=== PATIENT | male | born 1955 | race Caucasian/White ===

== ENCOUNTER 2018-04-25 01:40 | Emergency (ER) | payer OTHER ==
[2018-04-25 02:18] LABS: Absolute Lymphocytes (CBC) 1.6 K/uL (0.7-4.9); Absolute Monocytes 0.7 K/uL (0.1-1.3); Absolute Neutrophil 5.7 K/uL (1.8-8.0); Basophils % 1.2 % (0-1.3); Eosinophils % 5.2 % (0-4.4); Hematocrit 44.4 % (39.6-49.0); Lymphocytes % 18.8 % (15.3-44.8); MCH 29.7 pg (27.0-35.0); MCV 86.5 fL (80-100); Monocytes % 8.5 % (3.3-12.3); RBC Red Blood Cell Count 5.14 M/uL (4.33-5.43)
[2018-04-25 02:22] LABS: Protime INR 1.1
[2018-04-25 02:34] LABS: Potassium 4.1 mmol/L (3.5-5.1); Troponin (Emerg Dept Use Only) 0.08 ng/mL (0.0-0.045)
[2018-04-25] MEDS ORDERED: CLOPIDOGREL 75 MG TABLET ONE (02:38)
[2018-04-25] MEDS ORDERED: ASPIRIN EC 325 MG TABLET PO ONE (02:38)
[2018-04-25] MEDS ORDERED: NA CHLORIDE 0.9% 50 ML IV ONE (02:40)
[2018-04-25] MEDS ORDERED: FOLIC ACID 5 MG/ML VIAL ONE (02:40)
--- NOTE | 2018-04-25 02:47 | EDPHYS ---
Physician Documentation [facility] Name: Vin Waller Jr Age: 63 yrs Sex: Male : 1955 Arrival Date: 04/25/2018 Time: 01:40 Bed 3 Private MD: Wally Denton V ED Physician Tolu Fournier HPI: 04/25 01:48 This 63 yrs old Male presents to ER via Unassigned with complaints of S/S of jr8 Possible Stroke. 01:48 The patient's problem is reported as dysphasia, slurred speech, incoherent speech, jr8 weakness, in the left upper extremity, in the left lower extremity. Onset: The symptoms/episode began/occurred acutely, today, at 21:00. Duration: This was a single incident. Context: the episode(s) was witnessed, by family, occurred at home, occurred while the patient was at rest. The symptoms are alleviated by nothing. The symptoms are aggravated by nothing. Associated signs and symptoms: The patient has no apparent associated signs or symptoms. Severity of symptoms: At their worst the symptoms were moderate in the emergency department the symptoms have improved mildly. Patient's baseline: Neuro: alert and fully oriented, Motor: no deficits, Ambulation: walks without assistance, Speech: normal. The patient has not experienced similar symptoms in the past. The patient has not recently seen a physician. Historical: - Allergies: 02:02 Erythromycin; tl2 - Home Meds: 02:02 furosemide 80 mg Oral tab 1 tab once daily [Active]; Klor-Con M20 20 mEq Oral TbTQ 1 tl2 tab once daily [Active]; lisinopril 20 mg Oral tab 1 tab once daily [Active]; allopurinol 100 mg Oral tab 1 tab once daily [Active]; carvedilol oral oral [Active]; - PMHx: 02:02 Gout; Hypertension; CHF; tl2 - Immunization history:: Adult Immunizations up to date. - Social history:: Smoking status: Patient/guardian denies using tobacco. - Ebola Screening: : No symptoms or risks identified at this time. ROS: 01:48 Eyes: Negative for injury, pain, redness, and discharge, ENT: Negative for injury, jr8 pain, and discharge, Neck: Negative for injury, pain, and swelling, Cardiovascular: Negative for chest pain, palpitations, and edema, Respiratory: Negative for shortness of breath, cough, wheezing, and pleuritic chest pain, Abdomen/GI: Negative for abdominal pain, nausea, vomiting, diarrhea, and constipation, Back: Negative for injury and pain, MS/Extremity: Negative for injury and deformity, Skin: Negative for injury, rash, and discoloration. 01:48 Neuro: Positive for speech changes, weakness. Exam: 01:48 Eyes: Pupils equal round and reactive to light, extra-ocular motions intact. Lids and jr8 lashes normal. Conjunctiva and sclera are non-icteric and not injected. Cornea within normal limits. Periorbital areas with no swelling, redness, or edema. ENT: Nares patent. No nasal discharge, no septal abnormalities noted. Tympanic membranes are normal and external auditory canals are clear. Oropharynx with no redness, swelling, or masses, exudates, or evidence of obstruction, uvula midline. Mucous membranes moist. Neck: Trachea midline, no thyromegaly or masses palpated, and no cervical lymphadenopathy. Supple, full range of motion without nuchal rigidity, or vertebral point tenderness. No Meningismus. Cardiovascular: Regular rate and rhythm with a normal S1 and S2. No gallops, murmurs, or rubs. Normal PMI, no JVD. No pulse deficits. Respiratory: Lungs have equal breath sounds bilaterally, clear to auscultation and percussion. No rales, rhonchi or wheezes noted. No increased work of breathing, no retractions or nasal flaring. Abdomen/GI: Soft, non-tender, with normal bowel sounds. No distension or tympany. No guarding or rebound. No evidence of tenderness throughout. Back: No spinal tenderness. No costovertebral tenderness. Full range of motion. Skin: Warm, dry with normal turgor. Normal color with no rashes, no lesions, and no evidence of cellulitis. MS/ Extremity: Pulses equal, no cyanosis. Neurovascular intact. Full, normal range of motion. 01:48 Neuro: Orientation: to person, place, time \T\ situation. Mentation: is normal, Memory: is normal, immediate memory is intact, recent memory is intact, remote memory is intact, Cranial nerves: CN I not tested, CN II- XII are normal as tested, visual campbell are intact. extraocular movements are intact, Facial palsy and sensory deficits are absent. Nystagmus is absent. Speech is clear and appropriate. Tongue strength is normal, Cerebellar function: dysmetria is noted on the left, the patient is unable to track left heel to right callahan, Motor: moves all fours, Sensation: no obvious gross deficits, seizure activity, is not displayed by the patient, Abnormal movements: there are no abnormal movements. 02:18 Radiologist reports: Negative for acute finding on CT head jr8 Vital Signs: 02:02 BP 167 / 116; Pulse 80; Resp 20; Pulse Ox 94% on R/A; Weight 113.4 kg; Height 5 ft. 10 tl2 in. (177.80 cm); Pain 0/10; 02:05 Temp 98.7(O); cc3 03:00 BP 150 / 92; Pulse 75; Resp 18; Pulse Ox 94% on R/A; tl2 03:23 BP 161 / 93; Pulse 68; Resp 24; Pulse Ox 94% on R/A; tl2 05:31 Pulse 64; Resp 18; Temp 98.4; Pulse Ox 94% on R/A; tl2 02:02 Body Mass Index 35.87 (113.40 kg, 177.80 cm) tl2 NIH Stroke Scale Scores: 01:48 NIHSS Score: 3 jr8 02:09 NIHSS Score: 3 tl2 MDM: 01:46 Patient medically screened. jr8 02:14 ED course: Patient is not a candidate for TPA as symptoms started at 21:00 hours and jr8 did not arrive to ED until 01:44 which is almost 5 hours after symptom onset. . 02:26 Data reviewed: vital signs, nurses notes, lab test result(s), EKG, radiologic studies, jr8 CT scan, plain films. Data interpreted: Pulse oximetry: on room air is 94 %. Interpretation: acceptable. Counseling: I had a detailed discussion with the patient and/or guardian regarding: the historical points, exam findings, and any diagnostic results supporting the discharge/admit diagnosis, lab results, radiology results, the need to transfer to another facility, for higher level of care, [facility] does not immediately have the required specialist. 02:44 ED course: Dr. Martínez contacted at [facility] who has accepted patient for neuro jr8 tele . 04/25 01:46 Order name: Troponin (emerg Dept Use Only) 04/25 01:46 Order name: Basic Metabolic Panel 04/25 01:46 Order name: CBC with Diff 04/25 01:46 Order name: Protime (+inr); Complete Time: 02:26 04/25 01:46 Order name: Ptt, Activated; Complete Time: 02:26 04/25 01:47 Order name: Troponin (Emerg Dept Use Only); Complete Time: 02:42 EDMS 04/25 01:46 Order name: CT Stroke Brain w/o Contrast 04/25 01:46 Order name: Stroke CXR 1 View 04/25 01:46 Order name: EKG; Complete Time: 01:47 04/25 01:47 Order name: Basic Metabolic Panel; Complete Time: 02:42 EDMS 04/25 01:47 Order name: CBC with Automated Diff; Complete Time: 02:20 EDMS 04/25 01:46 Order name: Accucheck; Complete Time: 02:08 04/25 01:46 Order name: Cardiac monitoring; Complete Time: 02:19 04/25 01:46 Order name: EKG - Nurse/Tech; Complete Time: 02:05 04/25 01:46 Order name: IV Saline Lock; Complete Time: 02:04/25 01:46 Order name: Labs collected and sent; Complete Time: 02:04/25 01:46 Order name: NPO; Complete Time: 02:04/25 01:46 Order name: O2 Per Protocol; Complete Time: 02:04/25 01:46 Order name: O2 Sat Monitoring; Complete Time: 02:04/25 01:46 Order name: Stroke Swallow Screen; Complete Time: 02: Administered Medications: 02:35 Drug: PlaVIX 75 mg Route: PO; cc3 03:00 Follow up: Response: No adverse reaction cc3 02:35 Drug: Aspirin 325 mg Route: PO; cc3 03:00 Follow up: Response: No adverse reaction cc3 02:35 Drug: foLIC Acid 1 mg Route: IVPB; Site: left antecubital; cc3 03:00 Follow up: Response: No adverse reaction; IV Status: Completed infusion cc3 Point of Care Testing: Blood Glucose: 02:02 Blood Glucose: 241 mg/dL; tl2 Ranges: Critical Glucose Levels:Adult <50 mg/dl or >400 mg/dl <40 mg/dl or >180 mg/dl Disposition: 06:47 Co-signature as Attending Physician, Tolu Fournier MD I agree with the assessment and milagros plan of care. Disposition: 04/25/18 02:46 Transfer ordered to [facility]. Diagnosis is Cerebral infarction. - Reason for transfer: Higher level of care. - Accepting physician is Dr. Martínez . - Condition is Stable. - Problem is new. - Symptoms have improved. NIH Stroke Scale - NIH Stroke Score Date: 04/25/2018 Time: 01:48 Total Score = 3 1a. Level of Consciousness (LOC) - 0(Alert) 1b. Level of Consciousness (LOC) (Year \T\ Age) - 0(Both) 1c. LOC Commands (Open \T\ Closes Eyes/Foam Rubber Mixer) - 0(Both) 2. Best Gaze (Lateral Gaze Paresis) - 0(Normal) 3. Visual Field Loss - 0(No visual loss) 4. Facial Palsy - 0(Normal) 5a. Left Arm: Motor (10-second hold) - 1(Drift) 5b. Right Arm: Motor (10-second hold) - 0(No drift) 6a. Left Leg: Motor (5-second hold - always test supine) - 1(Drift) 6b. Right Leg: Motor (5-second hold - always test supine) - 0(No drift) 7. Limb Ataxia (finger/nose \T\ heel/callahan - test with eyes open) - 1(Present in one limb) 8. Sensory Loss (pinprick arms/legs/face) - 0(Normal) 9. Best Language: Aphasia (description/naming/reading) - 0(No aphasia) 10. Dysarthria (speech clarity - read or repeat words) - 0(Normal) 11. Extinction and Inattention (visual/tactile/auditory/spatial/personal) - 0(No abnormality) Initials: jr8 NIH Stroke Scale - NIH Stroke Score Date: 04/25/2018 Time: 02:09 Total Score = 3 1a. Level of Consciousness (LOC) - 0(Alert) 1b. Level of Consciousness (LOC) (Year \T\ Age) - 0(Both) 1c. LOC Commands (Open \T\ Closes Eyes/Foam Rubber Mixer) - 0(Both) 2. Best Gaze (Lateral Gaze Paresis) - 0(Normal) 3. Visual Field Loss - 0(No visual loss) 4. Facial Palsy - 0(Normal) 5a. Left Arm: Motor (10-second hold) - 1(Drift) 5b. Right Arm: Motor (10-second hold) - 0(No drift) 6a. Left Leg: Motor (5-second hold - always test supine) - 1(Drift) 6b. Right Leg: Motor (5-second hold - always test supine) - 0(No drift) 7. Limb Ataxia (finger/nose \T\ heel/callahan - test with eyes open) - 1(Present in one limb) 8. Sensory Loss (pinprick arms/legs/face) - 0(Normal) 9. Best Language: Aphasia (description/naming/reading) - 0(No aphasia) 10. Dysarthria (speech clarity - read or repeat words) - 0(Normal) 11. Extinction and Inattention (visual/tactile/auditory/spatial/personal) - 0(No abnormality) Initials: tl2 Signatures: Dispatcher [employer] EDHI Tolu Fournier MD MD cha Roszak, Josh, PA PA jr8 Anne Bueno RN RN tl2 Shira Hastings cc3 Corrections: (The following items were deleted from the chart) 02:28 01:48 NIHSS Score: 4 jr8 jr8 02:28 02:12 NIHSS Score: 3 jr8 jr8 05:33 02:46 04/25/2018 02:46 Transfer ordered to [facility]. tl2 Diagnosis is Cerebral infarction. Reason for transfer: Higher level of care. Accepting physician is Dr. Martínez . Condition is Stable. Problem is new. Symptoms have improved. jr8
--- NOTE | 2018-04-25 02:47 | ER ---
Nurse's Notes [facility] Name: Vin Waller Jr Age: 63 yrs Sex: Male : 1955 Arrival Date: 04/25/2018 Time: 01:40 Bed 3 Private MD: Wally Denton V Diagnosis: Cerebral infarction Presentation: 04/25 01:50 Pre-hospital glucose is not applicable to this patient. tl2 02:02 Presenting complaint: Patient states: Reports weakness in left side and slurring of tl2 speech started around 8:00 or 9:00 last night. Speech has resolved but pt still reports slight weakness in left side. Pt AOx4 and ambulatory. Denies pain. Transition of care: patient was not received from another setting of care. An acute neurological deficit is present. The charge nurse has been notified. The patient has been moved to a treatment area. Onset of symptoms was April 24, 2018 at 21:00. Risk Assessment: Do you want to hurt yourself or someone else? Patient reports no desire to harm self or others. Initial Sepsis Screen: Does the patient meet any 2 criteria? No. Patient's initial sepsis screen is negative. Does the patient have a suspected source of infection? No. Patient's initial sepsis screen is negative. Care prior to arrival: None. 02:02 Method Of Arrival: Wheelchair tl2 02:02 Acuity: DORY 2 tl2 Triage Assessment: 02:02 The onset of the patients symptoms was April 24, 2018 at 21:00. General: Appears in tl2 no apparent distress. comfortable, Behavior is calm, cooperative, appropriate for age. Pain: Denies pain. Neuro: Level of Consciousness is awake, alert, obeys commands, Oriented to person, place, time, situation, Moves all extremities. Gait is unsteady, Speech is normal, Facial symmetry appears normal, Reports weakness in left hand, left side. Cardiovascular: Denies chest pain. Respiratory: Airway is patent Respiratory effort is even, unlabored, Respiratory pattern is regular, symmetrical. GI: No signs and/or symptoms were reported involving the gastrointestinal system. Derm: Skin is pale. Stroke Activation: Physician: Stroke Attending; Name: Shantanu; Notified At: 01:43; Arrived At: 01:43 Physician: Chief Stroke Resident; Name: ; Notified At: 01:43; Arrived At: Physician: Stroke Resident; Name: ; Notified At: 01:43; Arrived At: Physician: ED Attending; Name: Shantanu; Notified At: 01:43; Arrived At: Physician: ED Resident; Name: ; Notified At: 01:43; Arrived At: Historical: - Allergies: 02:02 Erythromycin; tl2 - Home Meds: 02:02 furosemide 80 mg Oral tab 1 tab once daily [Active]; Klor-Con M20 20 mEq Oral TbTQ 1 tl2 tab once daily [Active]; lisinopril 20 mg Oral tab 1 tab once daily [Active]; allopurinol 100 mg Oral tab 1 tab once daily [Active]; carvedilol oral oral [Active]; - PMHx: 02:02 Gout; Hypertension; CHF; tl2 - Immunization history:: Adult Immunizations up to date. - Social history:: Smoking status: Patient/guardian denies using tobacco. - Ebola Screening: : No symptoms or risks identified at this time. Screenin:52 The patient has not been NPO before screening. The patient is alert, able to follow bb commands. The patient does not exhibit slurred or garbled speech The patient is not exhibiting difficulty speaking. The patient does not exhibit difficulty understanding words. The patient is able to swallow own secretions with no drooling or need for suction. Patient tolerated one teaspoon of water. No drooling, immediate coughing, gurgling, or clearing of the throat was noted. The patient tolerated 90mL of water. No drooling, immediate coughing, gurgling, or clearing of the throat was noted. The patient passed the bedside swallow screening. Oral medications may be given as ordered. Contact Physician for further diet orders. 02:09 Abuse screen: Denies threats or abuse. Nutritional screening: No deficits noted. tl2 Tuberculosis screening: No symptoms or risk factors identified. Fall Risk IV access (20 points). Gait- Weak (10 pts.). Assessment: 01:50 The patient has not been NPO before screening. The patient is alert, and able to follow tl2 commands. The patient does not exhibit slurred or garbled speech. The patient is not exhibiting difficulty speaking. The patient does not exhibit difficulty understanding words. The patient is able to swallow own secretions with no drooling or need for suction. Patient tolerated one teaspoon of water. No drooling, immediate coughing, gurgling, or clearing of the throat was noted. The patient tolerated 90mL of water. No drooling, immediate coughing, gurgling, or clearing of the throat was noted. The patient passed the bedside swallow screening. Oral medications may be given as ordered. Contact Physician for further diet orders. Provider notified of bedside swallow screening results: Froilan GARCIA. 02:00 T-PA (Activase) Screening: Indications: Treatment will start within 4.5 hours onset of tl2 symptoms: No. 02:09 General: see triage assessment. tl2 03:15 Reassessment: Patient appears in no apparent distress at this time. Patient and/or cc3 family updated on plan of care and expected duration. Pain level reassessed. Patient is alert, oriented x 3, equal unlabored respirations, skin warm/dry/pink. 04:30 Reassessment: Patient appears in no apparent distress at this time. Patient and/or tl2 family updated on plan of care and expected duration. Pain level reassessed. Patient is alert, oriented x 3, equal unlabored respirations, skin warm/dry/pink. 05:31 Reassessment: Patient appears in no apparent distress at this time. Patient and/or tl2 family updated on plan of care and expected duration. Pain level reassessed. Patient is alert, oriented x 3, equal unlabored respirations, skin warm/dry/pink. Pt stable and ready for transport, EMS at bedside. Vital Signs: 02:02 BP 167 / 116; Pulse 80; Resp 20; Pulse Ox 94% on R/A; Weight 113.4 kg; Height 5 ft. 10 tl2 in. (177.80 cm); Pain 0/10; 02:05 Temp 98.7(O); cc3 03:00 BP 150 / 92; Pulse 75; Resp 18; Pulse Ox 94% on R/A; tl2 03:23 BP 161 / 93; Pulse 68; Resp 24; Pulse Ox 94% on R/A; tl2 05:31 Pulse 64; Resp 18; Temp 98.4; Pulse Ox 94% on R/A; tl2 02:02 Body Mass Index 35.87 (113.40 kg, 177.80 cm) tl2 NIH Stroke Scale Scores: 01:48 NIHSS Score: 3 jr8 02:09 NIHSS Score: 3 tl2 ED Course: 01:40 Patient arrived in ED. am2 01:41 Wally Denton MD is Private Physician. am2 01:46 Froilan Dougherty PA is PHCP. jr8 01:46 Tolu Fournier MD is Attending Physician. jr8 02:00 Inserted saline lock: 20 gauge in left antecubital area, using aseptic technique. oe 02:02 Arm band placed on right wrist. tl2 02:06 Triage completed. tl2 02:06 CT completed. Patient tolerated procedure well. Patient moved to CT via stretcher. mw3 Patient moved back from CT. 02:08 X-ray completed. Portable x-ray completed in exam room. Patient tolerated procedure kw well. 02:08 CT Stroke Brain w/o Contrast In Process Unspecified. EDMS 02:09 Stroke CXR 1 View In Process Unspecified. EDMS 02:09 Patient has correct armband on for positive identification. Placed in gown. Bed in low tl2 position. Call light in reach. Side rails up X2. Adult w/ patient. 03:23 Anne Bueno, MANAN is Primary Nurse. tl2 05:31 No provider procedures requiring assistance completed. Patient admitted, IV remains in tl2 place. Administered Medications: 02:35 Drug: PlaVIX 75 mg Route: PO; cc3 03:00 Follow up: Response: No adverse reaction cc3 02:35 Drug: Aspirin 325 mg Route: PO; cc3 03:00 Follow up: Response: No adverse reaction cc3 02:35 Drug: foLIC Acid 1 mg Route: IVPB; Site: left antecubital; cc3 03:00 Follow up: Response: No adverse reaction; IV Status: Completed infusion cc3 Point of Care Testing: Blood Glucose: 02:02 Blood Glucose: 241 mg/dL; tl2 Ranges: Outcome: 02:46 ER care complete, transfer ordered by . jr8 05:31 Transferred by ground EMS to [facility], Transfer form completed. tl2 05:31 Condition: stable 05:31 Discharge instructions given to patient, family, Instructed on the need for transfer. 05:33 Patient left the ED. tl2 NIH Stroke Scale - NIH Stroke Score Date: 04/25/2018 Time: 01:48 Total Score = 3 1a. Level of Consciousness (LOC) - 0(Alert) 1b. Level of Consciousness (LOC) (Year \T\ Age) - 0(Both) 1c. LOC Commands (Open \T\ Closes Eyes/Registered Nursing Professor) - 0(Both) 2. Best Gaze (Lateral Gaze Paresis) - 0(Normal) 3. Visual Field Loss - 0(No visual loss) 4. Facial Palsy - 0(Normal) 5a. Left Arm: Motor (10-second hold) - 1(Drift) 5b. Right Arm: Motor (10-second hold) - 0(No drift) 6a. Left Leg: Motor (5-second hold - always test supine) - 1(Drift) 6b. Right Leg: Motor (5-second hold - always test supine) - 0(No drift) 7. Limb Ataxia (finger/nose \T\ heel/callahan - test with eyes open) - 1(Present in one limb) 8. Sensory Loss (pinprick arms/legs/face) - 0(Normal) 9. Best Language: Aphasia (description/naming/reading) - 0(No aphasia) 10. Dysarthria (speech clarity - read or repeat words) - 0(Normal) 11. Extinction and Inattention (visual/tactile/auditory/spatial/personal) - 0(No abnormality) Initials: jr8 NIH Stroke Scale - NIH Stroke Score Date: 04/25/2018 Time: 02:09 Total Score = 3 1a. Level of Consciousness (LOC) - 0(Alert) 1b. Level of Consciousness (LOC) (Year \T\ Age) - 0(Both) 1c. LOC Commands (Open \T\ Closes Eyes/Registered Nursing Professor) - 0(Both) 2. Best Gaze (Lateral Gaze Paresis) - 0(Normal) 3. Visual Field Loss - 0(No visual loss) 4. Facial Palsy - 0(Normal) 5a. Left Arm: Motor (10-second hold) - 1(Drift) 5b. Right Arm: Motor (10-second hold) - 0(No drift) 6a. Left Leg: Motor (5-second hold - always test supine) - 1(Drift) 6b. Right Leg: Motor (5-second hold - always test supine) - 0(No drift) 7. Limb Ataxia (finger/nose \T\ heel/callahan - test with eyes open) - 1(Present in one limb) 8. Sensory Loss (pinprick arms/legs/face) - 0(Normal) 9. Best Language: Aphasia (description/naming/reading) - 0(No aphasia) 10. Dysarthria (speech clarity - read or repeat words) - 0(Normal) 11. Extinction and Inattention (visual/tactile/auditory/spatial/personal) - 0(No abnormality) Initials: tl2 Signatures: Dispatcher [employer] Veena Aldrich, RN RN bb Matilde Washington Josh, PA PA jr8 Anne Bueno RN RN tl2 Gino Caballero Amanda am2 Geetha Garay mw3 Shira Hastings cc3
--- NOTE | 2018-04-25 07:12 | RAD REPORT ---
EXAM DESCRIPTION: CT - Ct Stroke Brain Wo Cont - 04/25/2018 2:08 am CLINICAL HISTORY: Slurred speech, left-sided weakness and numbness A preliminary report was provided at the time of the study and reviewed prior to final report. CLINICAL HISTORY: None. TECHNIQUE: Axial 5 millimeter thick images of the head were obtained without IV contrast. All CT scans are performed using dose optimization technique as appropriate and may include automated exposure control or mA/KV adjustment according to patient size. FINDINGS: No intracranial hemorrhage, mass, or cerebral edema. No acute infarction identifiable. Atr ophy and chronic ischemic changes are present relatively mild. Gomez matter-white matter differentiati on is preserved. Ventricles are in proportion to volume loss. Arterial and physiologic calcifications are present. Visualized portions of the mastoid air cells, paranasal sinuses, and orbits are without acute finding . IMPRESSION: No CT evidence of acute intracranial process. Patient has mild underlying atrophy and ch ronic ischemic change. Chronic ischemic changes can mask nonhemorrhagic acute infarction. MR brain followup can be obtained if there is ongoing concern for acute ischemia.
--- NOTE | 2018-04-25 08:28 | RAD REPORT ---
EXAM DESCRIPTION: RAD - Chest Single View - 04/25/2018 2:09 am CLINICAL HISTORY: Stroke protocol chest film COMPARISON: None. TECHNIQUE: AP portable chest image was obtained 0204 hours . FINDINGS: Exam is degraded by motion. Portable technique, large body habitus and cardiomegaly limit left base assessment. Peripheral mass or consolidation is not suspected. Significant failure or volum e overload are not suspected. Heart and vasculature are normal. No measurable pleural effusion and no pneumothorax. No acute bony abnormality seen. No acute aortic findings suspected. IMPRESSION: Motion degraded portable study showing no acute lung parenchymal finding. Mild cardiomegaly accentuated by exam limitations. No vascular engorgement or other findings of signi ficant failure/ volume overload.
--- NOTE | 2018-04-26 06:54 | EKG ---
Test Date: 2018-04-25 Test Time: 01:52:19 Biological Plant Operator: BHASKAR MEASUREMENT RESULTS: Intervals: Rate: 83 UT: 200 QRSD: 110 QT: 396 QTc: 465 [place]: P: 59 UT: 200 QRS: -38 T: 73 INTERPRETIVE STATEMENTS: Sinus rhythm with occasional premature ventricular complexes Left axis deviation Nonspecific ST abnormality Abnormal ECG Compared to ECG 06/29/2005 05:43:00 Ventricular premature complex(es) now present Left-axis deviation now present ST (T wave) deviation now present Incomplete right bundle-branch block no longer present T-wave abnormality no longer present Electronically Signed On 04-26-18 06:49:33 CDT by Geoff Roman
== END 2018-04-25 05:33 | disposition short-term general hospital (02) ==
LOC: ER 01:40
DX: I63.9 Cerebral infarction, unspecified (principal); I10 Essential (primary) hypertension; R29.703 NIHSS score 3; I50.9 Heart failure, unspecified; Z88.3 Allergy status to other anti-infective agents
CPT/HCPCS: 36415; 70450; 71045; 80048; 82962; 84484; 85025; 85610; 85730; 93005; 96365; 99285

== ENCOUNTER 2019-05-19 18:21 | Observation (INO) | payer OTHER ==
--- OUTSIDE RECORDS SUMMARY | 2019-05-19 18:24 | XMS REPORT ---
:1955 [facility] [address] [place] [address] Care Team Providers Name Role Phone GENO BAILEY Unavailable Unavailable Problems This patient has no known problems. Allergies, Adverse Reactions, Alerts This patient has no known allergies or adverse reactions. Medications This patient has no known medications. Results Test Description Test Time Test Comments Text Results Atomic Results Result Comments PHOSPHORUS 2018-04-27 05:49:00 Test Item Value Reference Range Comments PHOSPHORUS (BEAKER) (test drjw=612) 3.2 mg/dL 2.3-4.7 [id number] 05:49:00 Test Item Value Reference Range Comments MAGNESIUM (BEAKER) (test cxyj=106) 1.9 mg/dL 1.6-2.6 BASIC METABOLIC [id number] 05:25:00 Test Item Value Reference Range Comments SODIUM (BEAKER) (test 140 meq/L 136-145 wrxr=745) POTASSIUM (BEAKER) (test 3.5 meq/L 3.5-5.1 ybic=279) CHLORIDE (BEAKER) (test 105 meq/L 98-107 nwvu=789) CO2 (BEAKER) (test 26 meq/L 22-29 wxik=313) BLOOD UREA NITROGEN 14 mg/dL 7-21 (BEAKER) (test lpxk=478) CREATININE (BEAKER) (test 0.83 mg/dL 0.57-1.25 ugei=103) GLUCOSE RANDOM (BEAKER) 237 mg/dL 70-105 (test cnbd=594) CALCIUM (BEAKER) (test 9.1 mg/dL 8.4-10.2 asbe=722) EGFR (BEAKER) (test 94 mL/min/1.73 sq m ESTIMATED GFR IS NOT lmrn=4276) ACCURATE CREATININE CLEARANCE IN PREDICTING GLOMERULAR FILTRATION RATE. ESTIMATED GFR IS NOT APPLICABLE FOR DIALYSIS PATIENTS. MR, MRA, BRAIN, WITHOUT [id number] 19:36:00Reason for exam:-> Ischemic Stroke EvaluationFINAL REPORT MRA brain and neck without contrast 04/26/2018 7:35 PM CLINICAL HISTORY: StrokeIschemic Stroke Evaluationconcern for stroke COMPARISON: None available TECHNIQUE: Two- and three-dimensional ylgf-fn-fmmikh MRA images of the intra- and extracranial arterial vasculaturewas performed, from which maximal intensity projection 3-D reconstructions were created. FINDINGS: MRA neck: There is no vessel occlusion or flow-limiting stenosis. There is no NASCET-quantifiable cervical internal carotid artery stenosis. Flow is antegrade in both vertebral arteries. MRA [place]: There is no vessel occlusion, flow-limiting stenosis, or aneurysm. IMPRESSION: Negative intra-and extracranial MRAs. Signed: Kristian Hurtado Verified Date/Time: 04/26/2018 19:36:42 Reading Location: [facility] Radiology Reading Room MR, MRA, NECK, WITHOUT IV [id number] 19:36: 00Reason for exam:->Ischemic Stroke EvaluationFINAL REPORT MRA brain and neck without contrast 04/26/2018 7:35 PM CLINICAL HISTORY : StrokeIschemic Stroke Evaluationconcern for stroke COMPARISON: None available TECHNIQUE: Two- and three-dimensional ncbc-at-xkkapr MRA images of the intra- and extracranial arterial vasculaturewas performed, from which maximal intensity projection 3-D reconstructions were created. FINDINGS: MRA neck: There is no vessel occlusion or flow-limiting stenosis. There is no NASCET- quantifiable cervical internal carotid artery stenosis. Flow is antegrade in both vertebral arteries. MRA [place]: There is no vessel occlusion, flow-limiting stenosis, or aneurysm. IMPRESSION: Negative intra-and extracranial MRAs. Signed: Kristian Hurtado Verified Date/Time: 2017 19:36:42 Reading Location: [facility] Radiology Reading Room MR, BRAIN , WITHOUT [id number] 19:35:00Reason for exam:->Ischemic Stroke EvaluationFINAL REPORT MRI brain without contrast 2017 7:33 PM CLINICAL INDICATION: Ischemic Stroke Evaluationsuspected stroke TECHNIQUE: Multiplanar, multisequence MR imaging of thebrain was performed utilizing the following imaging sequences: Axial T1, T2, FLAIR, GRE, and DWI; sagittal and coronal T1-weighted images. COMPARISON: None available FINDINGS: There is a small acute nonhemorrhagic infarct involving the posterior right romo radiata and insular cortex. There is no hematoma, mass, hydrocephalus, or extra-axial collection. There is generalized parenchymal volume loss. Normal appearing flow-voids are present in the major intracranial vascular structures. The sellar and pineal regions are normal. The craniovertebral junction is intact. There is left sphenoid sinusitis. The orbits and skull base are unremarkable. IMPRESSION: 1. Acute nonhemorrhagic posterior right romo radiata /insular infarct. 2. Left sphenoid sinusitis. Signed: Kristian Hurtado Verified Date/Time: 04/26/2018 19:35:05 Reading Location: [facility] Radiology Reading Room Electronically signed by: KRISTIAN HURTADO M.D. on 07:35 PMHEMOGLOBIN [id number] 13:31:00 Test Item Value Reference Range Comments HEMOGLOBIN A1C (BEAKER) (test taee=020) 10.4 % 4.3-6.1 CREATINE KINASE (CK), TOTAL AND [id number] 08:03:00 Test Item Value Reference Range Comments CREATINE KINASE TOTAL (BEAKER) (test gktz=095) 78 U/L 29-200 CREATINE KINASE-MB (BEAKER) (test cext=919) 4.0 ng/mL 0.0-6.6 CREATINE KINASE-MB INDEX (BEAKER) (test hkqu=180) 5.1 % CK-MB Reference Range:<6.7 Normal6.7-10.0 Borderline>10.0 AbnormalTROPONIN [id number] 07:34:00 Test Item Value Reference Range Comments TROPONIN I (BEAKER) (test tkvq=147) 0.07 ng/mL 0.00-0.03 Troponin I (TnI) levels must be interpreted in the context of the presenting symptoms and the clinical findings. Elevated TnI levels indicate myocardial damage, but are not specific for ischemic heart disease. Elevated TnI levels are seen in patients with other cardiac conditions (including myocarditis and congestive heart failure), and slight TnI elevations occur in patients with other conditions, including sepsis, renal failure, acidosis, acute neurological disease, and persistent tachyarrhythmia.BASIC METABOLIC [id number] 07:20:00 Test Item Value Reference Range Comments SODIUM (BEAKER) (test 137 meq/L 136-145 zufb=455) POTASSIUM (BEAKER) (test 3.7 meq/L 3.5-5.1 jbjn=129) CHLORIDE (BEAKER) (test 103 meq/L 98-107 ndgl=696) CO2 (BEAKER) (test 24 meq/L 22-29 aoyo=458) BLOOD UREA NITROGEN 17 mg/dL 7-21 (BEAKER) (test bgcg=273) CREATININE (BEAKER) (test 0.84 mg/dL 0.57-1.25 ixsi=695) GLUCOSE RANDOM (BEAKER) 218 mg/dL 70-105 (test sipl=359) CALCIUM (BEAKER) (test 9.2 mg/dL 8.4-10.2 rsls=167) EGFR (BEAKER) (test 93 mL/min/1.73 sq m ESTIMATED GFR IS NOT byky=4080) ACCURATE CREATININE CLEARANCE IN PREDICTING GLOMERULAR FILTRATION RATE. ESTIMATED GFR IS NOT APPLICABLE FOR DIALYSIS PATIENTS. CBC W/PLT COUNT & AUTO [id number] 06:38:00 Test Item Value Reference Range Comments WHITE BLOOD CELL COUNT (BEAKER) (test jgrv=019) 9.3 K/ L 3.5-10.5 RED BLOOD CELL COUNT (BEAKER) (test ljmv=265) 5.12 M/ L 4.63-6.08 HEMOGLOBIN (BEAKER) (test fnjg=414) 14.6 GM/DL 13.7-17.5 HEMATOCRIT (BEAKER) (test vgzn=111) 45.6 % 40.1-51.0 MEAN CORPUSCULAR VOLUME (BEAKER) (test bule=172) 89.1 fL 79.0-92.2 MEAN CORPUSCULAR HEMOGLOBIN (BEAKER) (test 28.5 pg 25.7-32.2 whtk=558) MEAN CORPUSCULAR HEMOGLOBIN CONC (BEAKER) (test 32.0 GM/DL 32.3-36.5 eknk=386) RED CELL DISTRIBUTION WIDTH (BEAKER) (test 14.1 % 11.6-14.4 jzsr=870) PLATELET COUNT (BEAKER) (test kmsi=439) 217 K/CU MM 150-450 MEAN PLATELET VOLUME (BEAKER) (test fcnb=774) 11.0 fL 9.4-12.4 NUCLEATED RED BLOOD CELLS (BEAKER) (test 0 /100 WBC 0-0 fbkx=807) NEUTROPHILS RELATIVE PERCENT (BEAKER) (test 74 % zfux=269) LYMPHOCYTES RELATIVE PERCENT (BEAKER) (test 13 % sxit=746) MONOCYTES RELATIVE PERCENT (BEAKER) (test 9 % kgru=954) EOSINOPHILS RELATIVE PERCENT (BEAKER) (test 3 % kbnb=523) BASOPHILS RELATIVE PERCENT (BEAKER) (test 1 % jwds=533) NEUTROPHILS ABSOLUTE COUNT (BEAKER) (test 6.81 K/ L 1.78-5.38 ytpn=519) LYMPHOCYTES ABSOLUTE COUNT (BEAKER) (test 1.21 K/ L 1.32-3.57 szsf=299) MONOCYTES ABSOLUTE COUNT (BEAKER) (test 0.80 K/ L 0.30-0.82 zqak=272) EOSINOPHILS ABSOLUTE COUNT (BEAKER) (test 0.31 K/ L 0.04-0.54 itzw=031) BASOPHILS ABSOLUTE COUNT (BEAKER) (test 0.08 K/ L 0.01-0.08 gojm=493) IMMATURE GRANULOCYTES-RELATIVE PERCENT (BEAKER) 1 % 0-1 (test mysp=6813) [id number] 04:38:00 Test Item Value Reference Range Comments RPR SCREEN (BEAKER) (test whlp=699) Nonreactive Nonreactive TSH/FREE T4 IF [id number] 19:33:00 Test Item Value Reference Range Comments THYROID STIMULATING HORMONE (BEAKER) (test 0.98 uIU/mL 0.35-4.94 trju=375) CREATINE KINASE (CK), TOTAL AND [id number] 18:51:00 Test Item Value Reference Range Comments CREATINE KINASE TOTAL (BEAKER) (test uwam=161) 86 U/L 29-200 CREATINE KINASE-MB (BEAKER) (test qagt=144) 4.7 ng/mL 0.0-6.6 CREATINE KINASE-MB INDEX (BEAKER) (test emdh=130) 5.5 % CK-MB Reference Range:<6.7 Normal6.7-10.0 Borderline>10.0 AbnormalTROPONIN [id number] 18:51:00 Test Item Value Reference Range Comments TROPONIN I (BEAKER) (test ppek=221) 0.06 ng/mL 0.00-0.03 Troponin I (TnI) levels must be interpreted in the context of the presenting symptoms and the clinical findings. Elevated TnI levels indicate myocardial damage, but are not specific for ischemic heart disease. Elevated TnI levels are seen in patients with other cardiac conditions (including myocarditis and congestive heart failure), and slight TnI elevations occur in patients with other conditions, including sepsis, renal failure, acidosis, acute neurological disease, and persistent tachyarrhythmia.POCT-GLUCOSE [id number] 16:46:00 Test Item Value Reference Range Comments POC-GLUCOSE METER (BEAKER) 205 mg/dL 70-110 TESTED AT [facility] [address] [facility] (test glyx=2220) [facility] [address] VITAMIN [id number] 15:26:00 Test Item Value Reference Range Comments VITAMIN B12 (BEAKER) (test uvfy=071) 520 pg/mL 213-816 BASIC METABOLIC [id number] 14:57:00 Test Item Value Reference Range Comments SODIUM (BEAKER) (test 139 meq/L 136-145 ouma=934) POTASSIUM (BEAKER) (test 3.8 meq/L 3.5-5.1 bgbo=948) CHLORIDE (BEAKER) (test 106 meq/L 98-107 zetc=119) CO2 (BEAKER) (test 23 meq/L 22-29 hgos=891) BLOOD UREA NITROGEN 21 mg/dL 7-21 (BEAKER) (test aidf=613) CREATININE (BEAKER) (test 1.02 mg/dL 0.57-1.25 iusd=507) GLUCOSE RANDOM (BEAKER) 218 mg/dL 70-105 (test zciu=565) CALCIUM (BEAKER) (test 9.7 mg/dL 8.4-10.2 mmsf=306) EGFR (BEAKER) (test 74 mL/min/1.73 sq m ESTIMATED GFR IS NOT pigv=6042) ACCURATE CREATININE CLEARANCE IN PREDICTING GLOMERULAR FILTRATION RATE. ESTIMATED GFR IS NOT APPLICABLE FOR DIALYSIS PATIENTS. TROPONIN [id number] 11:41:00 Test Item Value Reference Range Comments TROPONIN I (BEAKER) (test wyke=834) 0.07 ng/mL 0.00-0.03 Troponin I (TnI) levels must be interpreted in the context of the presenting symptoms and the clinical findings. Elevated TnI levels indicate myocardial damage, but are not specific for ischemic heart disease. Elevated TnI levels are seen in patients with other cardiac conditions (including myocarditis and congestive heart failure), and slight TnI elevations occur in patients with other conditions, including sepsis, renal failure, acidosis, acute neurological disease, and persistent tachyarrhythmia.CREATINE KINASE (CK), TOTAL AND [id number] 11:41:00 Test Item Value Reference Range Comments CREATINE KINASE TOTAL (BEAKER) (test hwjm=328) 86 U/L 29-200 CREATINE KINASE-MB (BEAKER) (test yodq=233) 4.9 ng/mL 0.0-6.6 CREATINE KINASE-MB INDEX (BEAKER) (test yiqx=337) 5.7 % CK-MB Reference Range:<6.7 Normal6.7-10.0 Borderline>10.0 AbnormalLIPID [id number] 11:34:00 Test Item Value Reference Range Comments TRIGLYCERIDES (BEAKER) (test znsq=798) 127 mg/dL CHOLESTEROL (BEAKER) (test uuvq=308) 131 mg/dL HDL CHOLESTEROL (BEAKER) (test kara=682) 32 mg/dL LDL CHOLESTEROL CALCULATED (BEAKER) (test 74 mg/dL rqwv=508) Triglyceride Reference Range: Low Risk <150 Borderline 150- 199 High Risk 200-499 Very High Risk >=500Cholesterol Reference Range: Low Risk <200 Borderline 200-239 High Risk > 240HDL Cholesterol Reference Range: Low Risk >=60 High Risk <40LDL Cholesterol Reference Range: Optimal <100 Near Optimal 100-129 Borderline 130-159 High 160-189 Very High >=190PROTHROMBIN TIME/[id number] 11:28:00 Test Item Value Reference Range Comments PROTIME (BEAKER) (test jgdd=624) 14.2 seconds 11.7-14.7 INR (BEAKER) (test pmjo=729) 1.1 <=5.9 RECOMMENDED COUMADIN/WARFARIN INR THERAPY RANGESSTANDARD DOSE: 2.0 - 3.0 Includes: PROPHYLAXIS forvenous thrombosis, systemic embolization; TREATMENT for venous thrombosis and/or pulmonary embolus.HIGH RISK: Target INR is 2.5-3.5 for patients with mechanical heart valves.[id number] 11:28:00 Test Item Value Reference Range Comments PARTIAL THROMBOPLASTIN TIME (BEAKER) (test 30.1 seconds 22.5-36.0 mntk=253) CBC (HEMOGRAM ONLY)2018-04-25 11:12:00 Test Item Value Reference Range Comments WHITE BLOOD CELL COUNT (BEAKER) (test fkpc=665) 9.1 K/ L 3.5-10.5 RED BLOOD CELL COUNT (BEAKER) (test zkoo=254) 5.27 M/ L 4.63-6.08 HEMOGLOBIN (BEAKER) (test zdri=525) 15.1 GM/DL 13.7-17.5 HEMATOCRIT (BEAKER) (test padp=876) 45.5 % 40.1-51.0 MEAN CORPUSCULAR VOLUME (BEAKER) (test rlqq=610) 86.3 fL 79.0-92.2 MEAN CORPUSCULAR HEMOGLOBIN (BEAKER) (test 28.7 pg 25.7-32.2 wugd=406) MEAN CORPUSCULAR HEMOGLOBIN CONC (BEAKER) (test 33.2 GM/DL 32.3-36.5 oatx=415) RED CELL DISTRIBUTION WIDTH (BEAKER) (test 14.3 % 11.6-14.4 ytjh=014) PLATELET COUNT (BEAKER) (test hhcv=926) 228 K/CU MM 150-450 MEAN PLATELET VOLUME (BEAKER) (test tmhn=144) 10.5 fL 9.4-12.4 NUCLEATED RED BLOOD CELLS (BEAKER) (test 0 /100 WBC 0-0 lqrv=264) CT, BRAIN, WITHOUT [id number] 09:27:00FINAL REPORT CT head without contrast INDICATION: Head trauma, headache TECHNIQUE: Axial noncontrast CT images through the head were obtained. This exam was performed according to our departmental dose optimization program which includes automated exposure control, adjustment ofthe mA and/or kV according to patient size and/or use of iterative reconstruction technique. COMPARISON: None available FINDINGS:There is left frontal scalp swelling but no underlying acute calvarial fracture. No acute intra- or extra-axial hemorrhage is seen. Right romo radiata and superior subinsular lucency is suspicious for recent microvascular ischemia superimposed on other chronic appearing microvascular disease. Please note that CT is insensitive for early or small infarcts. Generalized volume loss and vascular calcifications are noted. There is no hydrocephalus or midline shift. There is left sphenoid sinusitis and bilateral maxillary sinus mucus retention cysts or polyps. The mastoid air cells are well aerated. The globes appear proptotic. IMPRESSION: Left frontal scalp swelling in keeping with trauma. No acute intracranial hemorrhage or calvarial fracture. Right romo radiata and superior subinsular lucency suspicious for recent microvascular ischemia superimposed on chronic appearing microvascular disease. Advise correlation with the ordered MRI. Left sphenoid sinusitis. Additional chronic appearing findings as discussed above. Signed: Barrington Quiñones MDRman[facility] memorial hospital Verified Date/Time: 04/25/2018 09:27:15 Reading Location: [facility] C0[facility] Neuro Reading Room Electronically signedby: BARRINGTON QUIÑONES M.D. on 04/25/2018 09:27 AM
[2019-05-19] MEDS ORDERED: IPRATROPIUM BROM 0.5MG/2.5ML ONE (19:18)
[2019-05-19] MEDS ORDERED: ALBUTEROL 2.5 MG/3 ML NEB SOL ONE (19:18)
[2019-05-19 19:42] LABS: Absolute Lymphocytes (CBC) 0.8 K/uL (0.7-4.9); Hematocrit 41.4 % (39.6-49.0); Lymphocytes % 7.9 % (15.3-44.8); MPV 9.4 fL (7.6-11.3)
[2019-05-19 19:53] LABS: Protime INR 1.3
--- NOTE | 2019-05-19 19:53 | RAD REPORT ---
EXAM DESCRIPTION: RAD - Chest Single View - 05/19/2019 7:32 pm CLINICAL HISTORY: Cough, shortness of breath COMPARISON: May 2018 TECHNIQUE: AP portable chest image was obtained 1929 hours . FINDINGS: Patchy airspace opacification is present in the lower right lung field. Shallow inspiratio n limits the examination. Cardiac silhouette is enlarged. Vasculature is mildly prominent. Mid and up per lung campbell appear clear. No measurable pleural effusion and no pneumothorax. No acute bony abnor mality seen. No acute aortic findings suspected. IMPRESSION: Right base opacification suspicious for early pneumonia.
[2019-05-19] MEDS ORDERED: CEFTRIAXONE/SWI 1gm 1 GM/10 ML SYR ONE (20:03)
[2019-05-19 20:05] LABS: Albumin 3.4 g/dL (3.4-5.0); Bilirubin Direct 0.8 mg/dL (0-0.2); Magnesium 1.8 mg/dL (1.8-2.4); Potassium 4.2 mmol/L (3.5-5.1); Protein, Total 7.3 g/dL (6.4-8.2); Troponin (Emerg Dept Use Only) 0.07 ng/mL (0.0-0.045)
--- NOTE | 2019-05-19 20:12 | EDPHYS ---
Physician Documentation [facility] Name: Vin Waller Jr Age: 64 yrs Sex: Male : 1955 Arrival Date: 05/19/2019 Time: 18:25 Bed 27 Private MD: ED Physician Alexis Juarez HPI: 05/19 20:15 This 64 yrs old Male presents to ER via Ambulatory with complaints of Nausea, pm1 Cough. 20:15 The patient or guardian reports cough, with productive sputum, that is white. Onset: pm1 The symptoms/episode began/occurred 2 day(s) ago. Severity of symptoms: in the emergency department the symptoms are actually worse, shortness of breath is present in the emergency department. Modifying factors: The symptoms are alleviated by nothing, the symptoms are aggravated by exertion. Associated signs and symptoms: Pertinent positives: nausea, chills, Pertinent negatives: chest pain. The patient has not experienced similar symptoms in the past. The patient has been recently seen by a physician: Dr. Key. Historical: - Allergies: 18:44 Erythromycin; rb1 - Home Meds: 22:13 allopurinol 100 mg Oral tab 1 tab once daily [Active]; carvedilol Oral [Active]; rv furosemide 80 mg Oral tab 1 tab once daily [Active]; Klor-Con M20 20 mEq Oral TbTQ 1 tab once daily [Active]; lisinopril 20 mg Oral tab 1 tab once daily [Active]; - PMHx: 18:44 CHF; Gout; Hypertension; rb1 18:40 CVA; [place] - bilateral hearing aids - in place; rb1 - PSHx: 18:40 Appendectomy; rb1 - Immunization history:: Flu vaccine is not up to date. - Social history:: Smoking status: Patient/guardian denies using tobacco. - Ebola Screening: : Patient negative for fever greater than or equal to 101.5 degrees Fahrenheit, and additional compatible Ebola Virus Disease symptoms. ROS: 20:15 Eyes: Negative for injury, pain, redness, and discharge. pm1 20:15 ENT: Negative for injury, pain, and discharge, Neck: Negative for injury, pain, and swelling, Cardiovascular: Negative for chest pain, palpitations, and edema. 20:15 Back: Negative for injury and pain, : Negative for injury, bleeding, discharge, and swelling, MS/Extremity: Negative for injury and deformity, Skin: Negative for injury, rash, and discoloration, Neuro: Negative for headache, weakness, numbness, tingling, and seizure. 20:15 Constitutional: Positive for chills. 20:15 Respiratory: Positive for cough, shortness of breath. 20:15 Abdomen/GI: Positive for nausea, Negative for vomiting, diarrhea, constipation. Exam: 20:15 Constitutional: This is a well developed, well nourished patient who is awake, alert, pm1 and in no acute distress. Head/Face: Normocephalic, atraumatic. Eyes: Pupils equal round and reactive to light, extra-ocular motions intact. Lids and lashes normal. Conjunctiva and sclera are non-icteric and not injected. Cornea within normal limits. Periorbital areas with no swelling, redness, or edema. ENT: Nares patent. No nasal discharge, no septal abnormalities noted. Tympanic membranes are normal and external auditory canals are clear. Oropharynx with no redness, swelling, or masses, exudates, or evidence of obstruction, uvula midline. Mucous membranes moist. Neck: Trachea midline, no thyromegaly or masses palpated, and no cervical lymphadenopathy. Supple, full range of motion without nuchal rigidity, or vertebral point tenderness. No Meningismus. Chest/axilla: Normal chest wall appearance and motion. Nontender with no deformity. No lesions are appreciated. Cardiovascular: Regular rate and rhythm with a normal S1 and S2. No gallops, murmurs, or rubs. Normal PMI, no JVD. No pulse deficits. 20:15 Abdomen/GI: Soft, non-tender, with normal bowel sounds. No distension or tympany. No guarding or rebound. No evidence of tenderness throughout. Back: No spinal tenderness. No costovertebral tenderness. Full range of motion. Skin: Warm, dry with normal turgor. Normal color with no rashes, no lesions, and no evidence of cellulitis. MS/ Extremity: Pulses equal, no cyanosis. Neurovascular intact. Full, normal range of motion. 20:15 Respiratory: the patient does not display signs of respiratory distress, Breath sounds: rhonchi, are heard diffusely. 20:15 Neuro: Orientation: is normal, Motor: is normal, moves all fours. Vital Signs: 18:40 BP 169 / 101; Pulse 96; Resp 16; Temp 99.8(O); Pulse Ox 94% on R/A; Weight 117.93 kg rb1 (R); Height 5 ft. 10 in. (177.80 cm) (R); Pain 0/10; 19:01 BP 149 / 94 LA (auto/lg); Temp 99.2(O); jp3 20:21 BP 141 / 95; Pulse 86; Resp 21; Temp 101.5; Pulse Ox 94% on R/A; rv 21:16 BP 120 / 87; Pulse 74; Resp 18; Temp 99.6; Pulse Ox 97% on 2 lpm NC; rv 22:11 BP 111 / 69; Pulse 68; Resp 16; Pulse Ox 96% on R/A; rv 18:40 Body Mass Index 37.31 (117.93 kg, 177.80 cm) rb1 MDM: 19:06 Patient medically screened. pm1 20:10 Data reviewed: vital signs. Data interpreted: Pulse oximetry: on room air is 94 %. pm1 Interpretation:. Counseling: I had a detailed discussion with the patient and/or guardian regarding: the historical points, exam findings, and any diagnostic results supporting the discharge/admit diagnosis, lab results, radiology results, the need for further work-up and treatment in the hospital. 20:37 Physician consultation: Nic Ponce was called at 20:37, was contacted at 20:37, pm1 regarding admission, patient's condition, and will see patient in ED. 05/19 19:17 Order name: Basic Metabolic Panel; Complete Time: 20:07 pm1 05/19 19:17 Order name: CBC with Diff; Complete Time: 20:00 pm1 05/19 19:17 Order name: LFT's; Complete Time: 20:07 pm1 05/19 19:17 Order name: Magnesium; Complete Time: 20:07 pm1 05/19 19:17 Order name: NT PRO-BNP; Complete Time: 20:07 pm1 05/19 19:17 Order name: PT-INR; Complete Time: 20:00 pm1 05/19 19:17 Order name: Troponin (emerg Dept Use Only); Complete Time: 20:07 pm1 05/19 19:17 Order name: XRAY Chest (1 view); Complete Time: 20:00 pm1 05/19 19:17 Order name: Flu; Complete Time: 20:07 pm1 05/19 19:17 Order name: Blood Culture Adult (2) pm1 05/19 19:17 Order name: Lipase; Complete Time: 20:07 pm1 05/19 21:17 Order name: Urine Dipstick--Ancillary (enter results); Complete Time: 21:48 mt 05/19 19:17 Order name: EKG; Complete Time: 19:19 pm1 05/19 19:17 Order name: Cardiac monitoring; Complete Time: 19:35 pm1 05/19 19:17 Order name: EKG - Nurse/Tech; Complete Time: 19:35 pm1 05/19 19:17 Order name: IV Saline Lock; Complete Time: 19:35 pm1 05/19 19:17 Order name: Labs collected and sent; Complete Time: 19:35 pm1 05/19 19:17 Order name: O2 Per Protocol; Complete Time: 19:35 pm1 05/19 19:17 Order name: O2 Sat Monitoring; Complete Time: 19:35 pm1 Administered Medications: 19:15 Drug: Albuterol - atroVENT (3:1) (2.5 mg - 0.5 mg) 3 ml Route: Nebulizer; rv 20:07 Follow up: Response: No adverse reaction; Marked relief of symptoms rv 20:07 Drug: Rocephin 1 grams Route: IV; Rate: calculated rate; Site: left antecubital; rv 20:20 Follow up: IV Status: Completed infusion rv 20:20 Drug: LevaQUIN 750 mg Volume: 150 ml; Route: IVPB; Infused Over: 90 mins; Site: left rv antecubital; 22:44 Follow up: IV Status: Completed infusion rv 20:21 Drug: Motrin 800 mg Route: PO; rv 22:44 Follow up: Response: Temperature is decreased rv Disposition: 05/19/19 20:11 Hospitalization ordered by Nic Ponce for Inpatient Admission. Preliminary diagnosis is Pneumonia, unspecified organism. - Bed requested for Telemetry/MedSurg (Inpatient). - Status is Inpatient Admission. rv - Condition is Stable. - Problem is new. - Symptoms have improved. UTI on Admission? No Addendum: 05/28/2019 09:07 Co-signature as Attending Physician, Alexis Juarez MD. m a2 Signatures: Dispatcher [employer] EDMS Jenny Samuel RN RN Mckenna Coffey, RN RN [facility] Feliz Hagen, PIEDAD FLOTATION TENDER HELPER pm1 Alexis Juarez MD MD ma2 Kunal Baxter RN RN rv Corrections: (The following items were deleted from the chart) 05/19 21:49 20:11 Hospitalization Ordered by Nic Ponce for Inpatient Admission. Preliminary diagnosis is Pneumonia, unspecified organism. Bed requested for Telemetry/MedSurg (Inpatient). Status is Inpatient Admission. Condition is Stable. Problem is new. Symptoms have improved. UTI on Admission? No. pm1 22:41 21:49 05/19/2019 20:11 Hospitalization Ordered by Nic Ponce for Inpatient rv Admission. Preliminary diagnosis is Pneumonia, unspecified organism. Bed requested for Telemetry/MedSurg (Inpatient). Status is Inpatient Admission. Condition is Stable. Problem is new. Symptoms have improved. UTI on Admission? No. mw
--- NOTE | 2019-05-19 20:12 | ER ---
Nurse's Notes [facility] Name: Vin Waller Jr Age: 64 yrs Sex: Male : 1955 Arrival Date: 05/19/2019 Time: 18:25 Bed 27 Private MD: Diagnosis: Pneumonia, unspecified organism Presentation: 05/19 18:37 Presenting complaint: Patient states: Reports coughing, nausea, feeling SOB x 2 days. rb1 Decreased appetite. Was taking Metformin and it made him sick, so he quit taking it. Transition of care: patient was not received from another setting of care. Onset of symptoms was May 17, 2019. Risk Assessment: Do you want to hurt yourself or someone else? Patient reports no desire to harm self or others. Care prior to arrival: None. 18:37 Method Of Arrival: Ambulatory rb1 18:37 Acuity: DORY 3 rb1 19:33 Initial Sepsis Screen: Does the patient meet any 2 criteria? HR > 90 bpm. No. Patient's rv initial sepsis screen is negative. Does the patient have a suspected source of infection? Yes: Productive cough/pneumonia. Triage Assessment: 19:34 GI: Reports nausea. rv Historical: - Allergies: 18:44 Erythromycin; rb1 - Home Meds: 22:13 allopurinol 100 mg Oral tab 1 tab once daily [Active]; carvedilol Oral [Active]; rv furosemide 80 mg Oral tab 1 tab once daily [Active]; Klor-Con M20 20 mEq Oral TbTQ 1 tab once daily [Active]; lisinopril 20 mg Oral tab 1 tab once daily [Active]; - PMHx: 18:44 CHF; Gout; Hypertension; rb1 18:40 CVA; [place] - bilateral hearing aids - in place; rb1 - PSHx: 18:40 Appendectomy; rb1 - Immunization history:: Flu vaccine is not up to date. - Social history:: Smoking status: Patient/guardian denies using tobacco. - Ebola Screening: : Patient negative for fever greater than or equal to 101.5 degrees Fahrenheit, and additional compatible Ebola Virus Disease symptoms. Screenin:32 Abuse screen: Denies threats or abuse. Denies injuries from another. Nutritional rv screening: No deficits noted. Tuberculosis screening: No symptoms or risk factors identified. Fall Risk None identified. Assessment: 19:30 General: Appears in no apparent distress. comfortable, Behavior is calm, cooperative. rv Pain: Denies pain. Neuro: Level of Consciousness is awake, alert, obeys commands, Oriented to person, place, time, situation. Cardiovascular: Patient's skin is warm and dry. Respiratory: Airway is patent. GI: Abdomen is round. : No signs and/or symptoms were reported regarding the genitourinary system. EENT: No signs and/or symptoms were reported regarding the EENT system. Derm: Skin is intact. Musculoskeletal: No signs and/or symptoms reported regarding the musculoskeletal system. Vital Signs: 18:40 BP 169 / 101; Pulse 96; Resp 16; Temp 99.8(O); Pulse Ox 94% on R/A; Weight 117.93 kg rb1 (R); Height 5 ft. 10 in. (177.80 cm) (R); Pain 0/10; 19:01 BP 149 / 94 LA (auto/lg); Temp 99.2(O); jp3 20:21 BP 141 / 95; Pulse 86; Resp 21; Temp 101.5; Pulse Ox 94% on R/A; rv 21:16 BP 120 / 87; Pulse 74; Resp 18; Temp 99.6; Pulse Ox 97% on 2 lpm NC; rv 22:11 BP 111 / 69; Pulse 68; Resp 16; Pulse Ox 96% on R/A; rv 18:40 Body Mass Index 37.31 (117.93 kg, 177.80 cm) rb1 ED Course: 18:25 Patient arrived in ED. cl3 18:40 Arm band placed on right wrist. rb1 18:44 Triage completed. rb1 18:54 Feliz Hagen NP is PHCP. pm1 18:54 Alexis Juarez MD is Attending Physician. pm1 19:01 Placed in gown. Bed in low position. Call light in reach. Side rails up X 1. Side rails jp3 up X2. Verbal reassurance given. Pulse ox on. NIBP on. 19:16 Kunal Baxter, MANAN is Primary Nurse. rv 19:20 Inserted saline lock: 20 gauge in left antecubital area, using aseptic technique. Blood rv collected. 19:20 First set of blood cultures drawn by me. Missed attempt(s): 20 gauge in right rv antecubital area. 19:30 XRAY Chest (1 view) In Process Unspecified. EDMS 19:40 Second set of blood cultures drawn by me. rv 20:11 Nic Ponce is Hospitalizing Provider. pm1 22:13 No provider procedures requiring assistance completed. Patient admitted, IV remains in rv place. Administered Medications: 19:15 Drug: Albuterol - atroVENT (3:1) (2.5 mg - 0.5 mg) 3 ml Route: Nebulizer; rv 20:07 Follow up: Response: No adverse reaction; Marked relief of symptoms rv 20:07 Drug: Rocephin 1 grams Route: IV; Rate: calculated rate; Site: left antecubital; rv 20:20 Follow up: IV Status: Completed infusion rv 20:20 Drug: LevaQUIN 750 mg Volume: 150 ml; Route: IVPB; Infused Over: 90 mins; Site: left rv antecubital; 22:44 Follow up: IV Status: Completed infusion rv 20:21 Drug: Motrin 800 mg Route: PO; rv 22:44 Follow up: Response: Temperature is decreased rv Outcome: 20:11 Decision to Hospitalize by Provider. pm1 22:13 Admitted to Tele accompanied by tech, via wheelchair, room 424, with chart, Report rv called to JAIME HINKLE 22:13 Condition: good 22:13 Instructed on the need for admit. 22:41 Patient left the ED. rv Signatures: Dispatcher [employer] EDMS Mckenna Coffey RN RN rb1 Feliz Hagen, PIEDAD ORDER EXPEDITER pm1 Kunal Baxter RN RN rv Guero Herring jp3 [place] Tran cl3
[2019-05-19] MEDS ORDERED: Levofloxacin 750mg IV 750 MG/150 ML BAG IV ONE (20:16)
[2019-05-19] MEDS ORDERED: IBUPROFEN 400 MG TAB ONE (20:16)
[2019-05-19 21:28] LABS: Urine Blood TRACE (NEG); Urine Glucose NEGATIVE (NEG); Urine Protein 2+ (NEG); Urine Specific Gravity 1.015 (1.005-1.030); Urine pH 5.5 (5.0-7.0)
--- NOTE | 2019-05-19 21:39 | P.HP ---
Certification for Inpatient Patient admitted to: Inpatient With expected LOS: >2 Midnights Practitioner: I am a practitioner with admitting privileges, knowledge of patient current condition, hospital course, and medical plan of care. Services: Services provided to patient in accordance with Admission requirements found in Title 42 Section 412.3 of the Code of Federal Regulations Patient History Date of Service: 05/20/19 Reason for admission: Shortness of breath History of Present Illness: 62-year-old gentleman with a history of congestive heart failure, unknown EF, history of hypertension and diabetes presented to the emergency department with a complain of 2 day history of shortness of breath and cough. The patient reports progressive shortness of breath over 2 days duration, symptoms associated with cough productive of whitish sputum. He denied any chest pain. He endorsed fever at home. He stated his symptoms were preceded by nasal congestion. He denied wheezing. He was noted to be febrile with temperature up to 102 in the ED. His oxygen saturation was 94% on room air. Chest x-ray demonstrated right lower lobe opacities suggestive of pneumonia. His BNP also elevated. He has no leukocytosis and does not meet criteria for sepsis. Patient is admitted for further management of pneumonia. Allergies erythromycin base Adverse Reaction (Verified 05/19/19 23:08) upset stomach Home Medications: Allopurinol [Zyloprim*] 1 tab PO DAILY 05/20/19 Atorvastatin Calcium [Lipitor*] 1 tab PO BEDTIME 05/20/19 Carvedilol 1 tab PO BID 05/20/19 Eplerenone 1 tab PO DAILY 05/20/19 Furosemide 1 tab PO DAILY 05/20/19 Lisinopril 1 tab PO DAILY 05/20/19 Metformin ER [Glucophage ER*] 1 tab PO BEDTIME 05/20/19 Potassium Chloride [Micro-K] 1 tab PO BID 05/20/19 - Past Medical/Surgical History -: Hypertension -: Diabetes mellitus type 2 -: Congestive heart failure - Family History Mother -: Heart disease Father -: Hypertension - Social History Smoking Status: Never smoker Alcohol use: Yes CD- Drugs: No Place of Residence: Home Review of Systems Other: General: No fever, no malaise, no unintentional weight loss. Eyes: No eye discharge, CVS: No chest pain, no palpitation, no lightheadedness. GI: No abdominal pain, no nausea no vomit, no constipation, no diarrhea. Genitourinary: No dysuria, no urinary frequency, no incontinence, no hematuria. Musculoskeletal: No joint pains, or joint swelling, no gait instability. Neurology: No headache, no asymmetric, weakness, no problem with swallowing. Except as documented, all other systems reviewed and negative. Physical Examination - Physical Exam General: Alert, In no apparent distress, Oriented x3, Obese HEENT: Atraumatic, Normocephalic, PERRLA, Mucous membr. moist/pink, Sclerae nonicteric Neck: Supple, JVD not distended, No Thyromegaly Respiratory: Clear to auscultation bilaterally, Normal air movement, Diminished Cardiovascular: No edema, Regular rate/rhythm, Normal S1 S2, No murmurs Capillary refill: <2 Seconds Gastrointestinal: Normal bowel sounds, Soft and benign, Non-distended, No tenderness Musculoskeletal: No swelling Integumentary: No rashes Neurological: Normal speech, Normal strength at 5/5 x4 extr, Cranial nerves 3- 12 intact - Studies Laboratory Data (last 24 hrs) 05/19/19 19:20: PT 15.2 H, INR 1.30 05/19/19 19:20: WBC 10.0, Hgb 14.0, Hct 41.4, Plt Count 193 05/19/19 19:20: Sodium 137, Potassium 4.2, BUN 19 H, Creatinine 1.31 H, Glucose 232 H, Magnesium 1.8, Total Bilirubin 2.0 H, AST 24, ALT 40, Alkaline Phosphatase 162 H, Lipase 165 Microbiology Data (last 24 hrs): 05/19/19 19:25 Nasopharnyx Influenza Type A Antigen Screen - Final 05/19/19 19:25 Nasopharnyx Influenza Type B Antigen Screen - Final Assessment and Plan - Problems (Diagnosis) (1) Pneumonia Current Visit: Yes Status: Acute (2) Congestive heart failure Current Visit: Yes Status: Chronic (3) Diabetes mellitus type 2 in obese Current Visit: Yes Status: Chronic (4) Essential hypertension Current Visit: Yes Status: Chronic (5) Chronic kidney disease, stage 3 Current Visit: Yes Status: Chronic (6) Elevated troponin Current Visit: Yes Status: Acute - Plan Admit to medical floor. Allergy to erythromycin noted Will treat pneumonia with IV Levaquin Check procalcitonin Sputum Gram stain and culture. Bronchodilators Oxygen as needed Continue home dose lasix and eplerenone for CHF.Will prescribe an extra dose IV lasix to see if his Shortness will improve, given elevated BNP. Hold metformin Manage blood sugar with insulin sliding scale Troponin is midly elevated and likely secondary to demand ischemia from underlying CHF. Trend troponin. - Advance Directives Does patient have a Living Will: No Does patient have a Durable POA for Healthcare: No
[2019-05-19] MEDS ORDERED: FUROSEMIDE 40 MG/4 ML VIAL IV ONE (22:47)
[2019-05-19] MEDS ORDERED: ACETAMINOPHEN 500 MG TAB PO PRN (22:47)
[2019-05-19] MEDS ORDERED: ONDANSETRON 4 MG/2 ML VIAL IV PRN (22:47)
[2019-05-19] MEDS ORDERED: Levofloxacin 750mg IV 750 MG/150 ML BAG IV SCH (22:47)
[2019-05-19] MEDS ORDERED: ALBUTEROL 2.5 MG/3 ML NEB SOL NEB PRN (22:47)
[2019-05-19 22:50] VITALS: BMI 37.6
[2019-05-20 00:17] LABS: Arterial Blood Carboxyhemoglob 2.2 % (0-1.5); Blood Gas Oxyhemoglobin 88.6 % (94-97); Blood O2 Saturation 91.1 % (92-98.5)
[2019-05-20] MEDS: IPRATROPIUM BROM 0.5MG/2.5ML NEB SCH ×4 (04:00→11:55)
[2019-05-20 04:42] LABS: Absolute Lymphocytes (CBC) 0.7 K/uL (0.7-4.9); Basophils % 0.8 % (0-1.3); Hematocrit 40.5 % (39.6-49.0); Lymphocytes % 9.6 % (15.3-44.8); MPV 9.4 fL (7.6-11.3); RBC Red Blood Cell Count 4.76 M/uL (4.33-5.43)
[2019-05-20 04:53] LABS: Magnesium 1.9 mg/dL (1.8-2.4); Phosphorus 3.4 mg/dL (2.5-4.9); Potassium 3.6 mmol/L (3.5-5.1)
[2019-05-20] MEDS ORDERED: POTASSIUM CL SA 10 MEQ TAB PO ONE (04:56)
[2019-05-20] MEDS ORDERED: INSULIN -REGULAR HUMAN 50 UNIT/0.5 ML ML SQ SCH (07:30)
--- NOTE | 2019-05-20 08:47 | EKG ---
Test Date: 2019-05-19 Test Time: 19:14:49 Employee Relations Manager: JOHN MEASUREMENT RESULTS: Intervals: Rate: 92 NC: 192 QRSD: 104 QT: 388 QTc: 479 [place]: P: 62 NC: 192 QRS: -58 T: 78 INTERPRETIVE STATEMENTS: Normal sinus rhythm Indeterminate axis Borderline ECG Compared to ECG 04/25/2018 01:52:19 Indeterminate axis now present Ventricular premature complex(es) no longer present Left-axis deviation no longer present ST (T wave) deviation no longer present Electronically Signed On 05-20-19 08:45:29 INTERCEPTOR OPERATOR by Geoff Roman
[2019-05-20] MEDS ORDERED: ENOXAPARIN 40 MG/0.4 ML SQ SCH (09:00)
[2019-05-20 11:20] VITALS: O2SAT 95
[2019-05-20 12:10] VITALS: BP 173/88; TEMP 100.5
--- NOTE | 2019-05-20 15:13 | P.SSS ---
Patient History Date of Service: 05/20/19 Reason for admission: Shortness of breath History of Present Illness: See HPI Allergies erythromycin base Adverse Reaction (Verified 05/19/19 23:08) upset stomach Home Medications: Allopurinol [Zyloprim*] 1 tab PO DAILY 05/20/19 Atorvastatin Calcium [Lipitor*] 1 tab PO BEDTIME 05/20/19 Carvedilol 1 tab PO BID 05/20/19 Eplerenone 1 tab PO DAILY 05/20/19 Furosemide 1 tab PO DAILY 05/20/19 Lisinopril 1 tab PO DAILY 05/20/19 Metformin ER [Glucophage ER*] 1 tab PO BEDTIME 05/20/19 Potassium Chloride [Micro-K] 1 tab PO BID 05/20/19 - Past Medical/Surgical History Has patient received pneumonia vaccine in the past: No Diabetic: Yes -: Hypertension -: Diabetes mellitus type 2 -: Congestive heart failure -: CVA 2017 -: Gout -: sleep apnea -: appendectomy - Family History Mother -: Heart disease Notes: hep C Father -: Hypertension - Social History Smoking Status: Never smoker Alcohol use: Yes CD- Drugs: No Caffeine use: No Place of Residence: Home Review of Systems 10-point ROS is otherwise unremarkable Physical Examination - Vital Signs Temperature: 100.5 F Blood Pressure: 173/88 Pulse: 91 Respirations: 19 Pulse Ox (%): 96 - Physical Exam General: Alert, In no apparent distress HEENT: Atraumatic, PERRLA, Mucous membr. moist/pink, EOMI, Sclerae nonicteric Neck: Supple, 2+ carotid pulse no bruit, No LAD, Without JVD or thyroid abnormality Respiratory: Clear to auscultation bilaterally, Normal air movement Cardiovascular: Regular rate/rhythm, Normal S1 S2 Gastrointestinal: Normal bowel sounds, No tenderness Musculoskeletal: No tenderness Integumentary: No rashes Neurological: Normal gait, Normal speech, Normal strength at 5/5 x4 extr, Normal tone, Normal affect Lymphatics: No axilla or inguinal lymphadenopathy - Studies Laboratory Data (last 24 hrs) 05/19/19 19:20: PT 15.2 H, INR 1.30 05/19/19 19:20: WBC 10.0, Hgb 14.0, Hct 41.4, Plt Count 193 05/19/19 19:20: Sodium 137, Potassium 4.2, BUN 19 H, Creatinine 1.31 H, Glucose 232 H, Magnesium 1.8, Total Bilirubin 2.0 H, AST 24, ALT 40, Alkaline Phosphatase 162 H, Lipase 165 Microbiology Data (last 24 hrs): 05/19/19 19:25 Nasopharnyx Influenza Type A Antigen Screen - Final 05/19/19 19:25 [place] Influenza Type B Antigen Screen - Final - Diagnosis (Problem(s)) (1) Pneumonia Status: Resolved Qualifiers: Pneumonia type: due to unspecified organism Laterality: unspecified laterality Lung location: unspecified part of lung Qualified Code(s): J18.9 - Pneumonia, unspecified organism (2) Chronic kidney disease, stage 3 Status: Chronic (3) Congestive heart failure Status: Chronic Qualifiers: Heart failure type: combined systolic and diastolic Heart failure chronicity: chronic Qualified Code(s): I50.42 - Chronic combined systolic ( congestive) and diastolic (congestive) heart failure (4) Diabetes mellitus type 2 in obese Status: Chronic (5) Essential hypertension Status: Chronic Treatment Summary: Overall the hospital stay patient remained stable Patient was initially admitted to the hospital for fever cough and congestion along with chills. Patient was admitted to the hospital for possibility of bacterial pneumonia. Patient's initial white count and pro calcitonin was negative. Septic markers were also negative at that time. Patient was admitted to the hospital and had bronchodilator treatment was started on IV antibiotics. Patient had marked improvement in his symptoms. Chest x-ray was consistent with more vascular condition rather than pneumonia. Given the negative count and pro calcitonin , bacterial pneumonia was highly unlikely. Patient most likely had viral illness which did resolve after admission to the hospital on observation. At that time patient was cleared for discharge home and educated regarding viral illness and was asked to continue taking all his chronic medication as prescribed by his primary care doctor. Patient was then discharged home under stable condition and asked to follow up with his primary care doctor - Disposition Disposition: ROUTINE DISCHARGE Condition: GOOD Diet: Regular Activity: Ad mila
== END 2019-05-20 12:51 | disposition home or self-care (01) ==
LOC: ER 18:21 → ERHOLD 21:44 → INTOOBSV 21:44 → 4TH 22:08
PROVIDERS: ADMIT Internal Medicine; ATTEND Internal Medicine
DX: J18.9 Pneumonia, unspecified organism (principal); I13.0 Hypertensive heart and chronic kidney disease with heart failure and stage 1 through stage 4 chronic kidney disease, or unspecified chronic kidney disease; E11.22 Type 2 diabetes mellitus with diabetic chronic kidney disease; N18.3 Chronic kidney disease, stage 3 (moderate); I50.42 Chronic combined systolic (congestive) and diastolic (congestive) heart failure; E66.9 Obesity, unspecified; Z68.37 Body mass index [BMI] 37.0-37.9, adult; Z86.73 Personal history of transient ischemic attack (TIA), and cerebral infarction without residual deficits
CPT/HCPCS: 96365; 93005; 87040 ×2; 85025 ×2; 80048 ×2; 36415; 83735 ×2; 84100; 85610; 80061; 82947 ×3; 80076; 81003; 84484 ×2; 83690; 83880; 87804 ×2; 71045; 94640 ×5; 82805; 94760 ×2; 96375; 99285; 96366; J1940; J1650; J0696; G0378 ×2

== ENCOUNTER 2020-11-20 12:57 | Emergency (ER) | payer BC, OTHER ==
--- OUTSIDE RECORDS SUMMARY | 2020-11-20 12:59 | XMS REPORT | Continuity of Care Document ---
:[address] [facility] t Address [address] [place] [address] Care Team Providers Name Role Phone MIRTHA BAILEY Attending Clinician Unavailable MIRTHA BAILEY Admitting Clinician Unavailable Problems Condition Condition Condition Status Onset Resolution Last Treating Co mments Source Name Details Category Date Date Treatment Clinician Date Stroke Stroke Disease Active 2017-[address] [facility] 00 [place] Other Other Disease Active 2017-[address] [facility] congestive congestive 0-20 Melissa kes - heart heart 00:00: Medical failure failure 00 Center Hemiparesi Hemiparesi Disease Active 2017-[address] [facility] 0[facility]18 [facility] 00 [place] Essential Essential Disease Active 2017-[address] [facility] hypertensi hypertensi 0-18 Melissa kes - on on 00:00: Medical 00 Center CHF CHF Disease Active 2017-[address] [facility] (congestiv (congestiv 0-18 Melissa kes - e heart e heart 00:00: Medical failure) failure) 00 Center Gout Gout Disease Active 2017-[address] [facility] 0[facility]18 [facility] 00:[facility]: Medical 00 [place] Suspected Suspected Disease Active 2017-[address] [facility] stroke stroke 0-18 [facility] - patient patient 00:00: Medical last known last known 00 Ce nter to be well to be well more than more than 2 hours 2 hours ago ago Allergies, Adverse Reactions, Alerts Allergy Allergy Status Severity Reaction(s) Onset Inactive Treating Comm ents Source Name Type Date Date Clinician Erythrom Propensi Active 2017-[address] [facility] [address] ycin ty to 0-18 [facility] - adverse 00:00: Medical reaction 00 Center s Family History Family Member Diagnosis Comments Start Date Stop Date Source Natural father Hypertension [facility] Natural mother Liver disease [facility] Social History Social Habit Start Date Stop Date Quantity Comments Source Sex Assigned At [facility] Tobacco use and 2018-04-25 2018-04-25 Never used [facility] - exposure 00:00:00 00:00:[address] [facility] Alcohol intake 2018-04-25 2018-04-25 [facility] non-drinker of Medical Ce nter alcohol (finding) Smoking Status Start Date Stop Date Source [facility] [place] Medications Ordered Filled Start Stop Current Ordering Indication Dosage Frequency Signature Comments Components Source Medication Medication Date Date Medication? Clinician (SIG) Name Name potassium 2017-07 Yes hypokalemia 15meq Q.5D Take [address] [facility] [address] chloride SA 0-21 mEq by [facility] - (KLOR-CON 15:10: mouth 2 Medic al M15) 15 MEQ 16 (two) Center tablet times daily. colchicine 2017-07 Yes acute gouty .6mg Take 0.[address] [facility] (COLCRYS) 0-21 arthritis mg by [facility] - 0.6 mg 15:10: mouth as Medical tablet 16 needed Center (gout) . docosahexan 2017-07 Yes 1200mg Take 1,[address] oic 0-21 mg by [facility] - acid/epa 15:10: mouth. Medical (FISH OIL 16 Center ORAL) Procedures This patient has no known procedures. Plan of Care Planned Activity Planned Date Details Comments Source Future Scheduled 2021-04-[address] [facility] - Test 00:00:00 (procedure) [code = [facility] [id number]] Future Scheduled 2021-03-[address] [facility] - Test 00:00:00 (Season Ended) [code Medical Center = INFLUENZA VACCINE (Season Ended)] Future Scheduled 2020-07-[address] [facility] - Test 00:00:00 (12+) [code = [facility] DEPRESSION SCREENING (12+)] Future Scheduled 2007 SHINGLES VACCINES ([address] [facility] - Test 00:00:00 of 2) [code = [facility] SHINGLES VACCINES (1 of 2)] Future Scheduled 1976-01-28 DTAP/TDAP/TD VACCINES [facility] Test 00:00:00 (1 - Tdap) [code = Medical C enter DTAP/TDAP/TD VACCINES (1 - Tdap)] Future Scheduled 1975 HEPATITIS C [facility]CREENING [facility] Test 00:00:00 [code = HEPATITIS C Medical Center SCREENING] Future Scheduled [address] [facility] - Test 00:00:00 malignant neoplasm of Medica l Center colon (procedure) [code = 318247264] Results Test Description Test Time Test Comments Results Result Comments Source PHOSPHORUS 2018-04-27 05:49:00 Test Item Value Reference Range Interpretation Comme nts PHOSPHORUS (BEAKER) (test code = 604) 3.2 mg/dL 2.3-4.7 [id number] 05:49:00 Test Item Value Reference Range Interpretation Comments MAGNESIUM (BEAKER) (test code = 1.9 mg/dL 1.6-2.6 627) BASIC METABOLIC [id number] 05:25:00 Test Item Value Reference Range Interpretation Comments SODIUM (BEAKER) 140 meq/L 136-145 (test code = 381) POTASSIUM (BEAKER) 3.5 meq/L 3.5-5.1 (test code = 379) CHLORIDE (BEAKER) 105 meq/L 98-107 (test code = 382) CO2 (BEAKER) (test 26 meq/L 22-29 code = 355) BLOOD UREA NITROGEN 14 mg/dL 7-21 (BEAKER) (test code = 354) CREATININE (BEAKER) 0.83 mg/dL 0.57-1.25 (test code = 358) GLUCOSE RANDOM 237 mg/dL 70-105 H (BEAKER) (test code = 652) CALCIUM (BEAKER) 9.1 mg/dL 8.4-10.2 (test code = 697) EGFR (BEAKER) (test 94 mL/min/1.73 ESTIMA MARLA GFR IS code = 1092) sq m NOT ACCURATE CREATININE CLEARANCE IN PREDICTING GLOMERULAR FILTRATION RATE . ESTIMATED GFR I S NOT APPLICABLE FOR DIALYSIS PATIEN TS. MR, MRA, BRAIN, WITHOUT [id number] 19:36:00Reason for exam:->Ischemic Stroke EvaluationFINAL REPORT MRA brain and neck without contrast 04/26/2018 7:35 PM CLINICAL HISTORY: StrokeIschemic Stroke Evaluationconcern for stroke COMPARISON: None available TECHNIQUE: Two- and three-dimensional [id number] MRA images of the intra- and extracranial arterial vasculaturewas performed, from which maximal intensity projection 3-D reconstructions were created. FINDINGS: MRA neck: There is no vessel occlusion or flow-limiting stenosis. There is no NASCET-quantifiable cervical internal carotid artery stenosis. Flow is antegrade in both vertebral arteries. MRA pilot station of [place]: There is no vessel occlusion, flow-limiting stenosis, or aneurysm. IMPRESSION: Negative intra-and extracranial MRAs. Signed: Kristian Hurtado Verified Date/Time: 04/26/2018 19:36:42 Reading Location: [facility] Radiology Reading Room MR, MRA, NECK, WITHOUT IV [id number] 19:36:00 Reason for exam:->Ischemic Stroke EvaluationFINAL REPORT MRA brain and neck without contrast 04/26/2018 7:35 PM CLINICAL H ISTORY: StrokeIschemic Stroke Evaluationconcern for stroke COMPARISON: None available TECHNIQUE: Two- and three-dimensional [id number] MRA images of the intra- and extracranial arterial vasculaturewas performed, from which maximal intensity projection 3-D reconstructions were created. FINDINGS: MRA neck: There is no vessel occlusion or flow-limiting stenosis. There is no NASCET- quantifiable cervical internal carotid artery stenosis. Flow is antegrade in both vertebral arteries. MRA pilot station of [place]: There is no vessel occlusion, flow-limiting stenosis, or aneurysm. IMPRESSION: Negative intra-and extracranial MRAs. Signed: Kristian Hurtado Verified Date/Time: 04/26/2018 19:36:42 Reading Location: [facility] Radiology Reading Room MR, BRAIN, WITHOUT [id number] 19:35:00Reason for exam:->Ischemic Stroke EvaluationFINAL REPORT MRI brain without contrast 04/26/2018 7:33 PM CLINICAL INDICATION: Ischemic Stroke Evaluationsuspected [...] IMPRESSION: 1. Acute nonhemorrhagic posterior right romo radiata/insular infarct. 2. Left sphenoid sinusitis. Signed: Kristian Hurtado Verified Date/Time: 04/26/2018 19:35:05 Reading Location: [facility] Radiology Reading Room HEMOGLOBIN [id number] 13:31:00 Test Item Value Reference Range Interpretation Comments HEMOGLOBIN A1C (BEAKER) (test code = 10.4 % 4.3-6.1 H 368) CREATINE KINASE (CK), TOTAL AND [id number] 08:03:00 Test Item Value Reference Range Interpretation Comments CREATINE KINASE TOTAL (BEAKER) 78 U/L 29-200 (test code = 380) CREATINE KINASE-MB (BEAKER) (test 4.0 ng/mL 0.0-6.6 code = 750) CREATINE KINASE-MB INDEX (BEAKER) 5.1 % (test code = 395) CK-MB Reference Range:<6.7 Normal6.7-10.0 Borderline>10.0 AbnormalTROPONIN [id number] 07:34:00 Test Item Value Reference Range Interpretation Comments TROPONIN I (BEAKER) (test code = 0.07 ng/mL 0.00-0.03 H 397) Troponin I (TnI) levels must be interpreted [...] acute neurological disease, and persistent tachyarrhythmia.BASIC METABOLIC [id number] 07:20:00 Test Item Value Reference Range Interpretation Comments SODIUM (BEAKER) 137 meq/L 136-145 (test code = 381) POTASSIUM (BEAKER) 3.7 meq/L 3.5-5.1 (test code = 379) CHLORIDE (BEAKER) 103 meq/L 98-107 (test code = 382) CO2 (BEAKER) (test 24 meq/L 22-29 code = 355) BLOOD UREA NITROGEN 17 mg/dL 7-21 (BEAKER) (test code = 354) CREATININE (BEAKER) 0.84 mg/dL 0.57-1.25 (test code = 358) GLUCOSE RANDOM 218 mg/dL 70-105 H (BEAKER) (test code = 652) CALCIUM (BEAKER) 9.2 mg/dL 8.4-10.2 (test code = 697) EGFR (BEAKER) (test 93 mL/min/1.73 ESTIMA MARLA GFR IS code = 1092) sq m NOT ACCURATE CREATININE CLEARANCE IN PREDICTING GLOMERULAR FILTRATION RATE . ESTIMATED GFR I S NOT APPLICABLE FOR DIALYSIS PATIEN TS. CBC W/PLT COUNT & AUTO [id number] 06:38:00 Test Item Value Reference Range Interpretation Comments WHITE BLOOD CELL COUNT (BEAKER) 9.3 K/ L 3.5-10.5 (test code = 775) RED BLOOD CELL COUNT (BEAKER) 5.12 M/ L 4.63-6.08 (test code = 761) HEMOGLOBIN (BEAKER) (test code = 14.6 GM/DL 13.7-17.5 410) HEMATOCRIT (BEAKER) (test code = 45.6 % 40.1-51.0 411) MEAN CORPUSCULAR VOLUME (BEAKER) 89.1 fL 79.0-92.2 (test code = 753) MEAN CORPUSCULAR HEMOGLOBIN 28.5 pg 25.7-32.2 (BEAKER) (test code = 751) MEAN CORPUSCULAR HEMOGLOBIN CONC 32.0 GM/DL 32.3-36.5 L (BEAKER) (test code = 752) RED CELL DISTRIBUTION WIDTH 14.1 % 11.6-14.4 (BEAKER) (test code = 412) PLATELET COUNT (BEAKER) (test 217 K/CU MM 150-450 code = 756) MEAN PLATELET VOLUME (BEAKER) 11.0 fL 9.4-12.4 (test code = 754) NUCLEATED RED BLOOD CELLS 0 /100 WBC 0-0 (BEAKER) (test code = 413) NEUTROPHILS RELATIVE PERCENT 74 % (BEAKER) (test code = 429) LYMPHOCYTES RELATIVE PERCENT 13 % (BEAKER) (test code = 430) MONOCYTES RELATIVE PERCENT 9 % (BEAKER) (test code = 431) EOSINOPHILS RELATIVE PERCENT 3 % (BEAKER) (test code = 432) BASOPHILS RELATIVE PERCENT 1 % (BEAKER) (test code = 437) NEUTROPHILS ABSOLUTE COUNT 6.81 K/ L 1.78-5.38 H (BEAKER) (test code = 670) LYMPHOCYTES ABSOLUTE COUNT 1.21 K/ L 1.32-3.57 L (BEAKER) (test code = 414) MONOCYTES ABSOLUTE COUNT (BEAKER) 0.80 K/ L 0.30-0.82 (test code = 415) EOSINOPHILS ABSOLUTE COUNT 0.31 K/ L 0.04-0.54 (BEAKER) (test code = 416) BASOPHILS ABSOLUTE COUNT (BEAKER) 0.08 K/ L 0.01-0.08 (test code = 417) IMMATURE GRANULOCYTES-RELATIVE 1 % 0-1 PERCENT (BEAKER) (test code = 2801) [id number] 04:38:00 Test Item Value Reference Range Interpretation Comments RPR SCREEN (BEAKER) (test code = Nonreactive Nonreactive 420) TSH/FREE T4 IF [id number] 19:33:00 Test Item Value Reference Range Interpretation Comments THYROID STIMULATING HORMONE 0.98 uIU/mL 0.35-4.94 (BEAKER) (test code = 772) CREATINE KINASE (CK), TOTAL AND [id number] 18:51:00 Test Item Value Reference Range Interpretation Comments CREATINE KINASE TOTAL (BEAKER) 86 U/L 29-200 (test code = 380) CREATINE KINASE-MB (BEAKER) (test 4.7 ng/mL 0.0-6.6 code = 750) CREATINE KINASE-MB INDEX (BEAKER) 5.5 % (test code = 395) CK-MB Reference Range:<6.7 Normal6.7-10.0 Borderline>10.0 AbnormalTROPONIN [id number] 18:51:00 Test Item Value Reference Range Interpretation Comments TROPONIN I (BEAKER) (test code = 0.06 ng/mL 0.00-0.03 H 397) Troponin I (TnI) levels must be interpreted [...] acidosis, acute neurological disease, and persistent tachyarrhythmia.POCT-GLUCOSE [id number] 16:46:00 Test Item Value Reference Range Interpretation Comments POC-GLUCOSE METER 205 mg/dL 70-110 H TESTED AT [facility] [address] ([facility]) (test code = [place] 1538) [id number] VITAMIN [id number] 15:26:00 Test Item Value Reference Range Interpretation Comments VITAMIN B12 (BEAKER) (test code = 520 pg/mL 213-816 774) BASIC METABOLIC [id number] 14:57:00 Test Item Value Reference Range Interpretation Comments SODIUM (BEAKER) 139 meq/L 136-145 (test code = 381) POTASSIUM (BEAKER) 3.8 meq/L 3.5-5.1 (test code = 379) CHLORIDE (BEAKER) 106 meq/L 98-107 (test code = 382) CO2 (BEAKER) (test 23 meq/L 22-29 code = 355) BLOOD UREA NITROGEN 21 mg/dL 7-21 (BEAKER) (test code = 354) CREATININE (BEAKER) 1.02 mg/dL 0.57-1.25 (test code = 358) GLUCOSE RANDOM 218 mg/dL 70-105 H (BEAKER) (test code = 652) CALCIUM (BEAKER) 9.7 mg/dL 8.4-10.2 (test code = 697) EGFR (BEAKER) (test 74 mL/min/1.73 ESTIMA MARLA GFR IS code = 1092) sq m NOT ACCURATE CREATININE CLEARANCE IN PREDICTING GLOMERULAR FILTRATION RATE . ESTIMATED GFR I S NOT APPLICABLE FOR DIALYSIS PATIEN TS. TROPONIN [id number] 11:41:00 Test Item Value Reference Range Interpretation Comments TROPONIN I (BEAKER) (test code = 0.07 ng/mL 0.00-0.03 H 397) Troponin I (TnI) levels must be interpreted [...] and persistent tachyarrhythmia.CREATINE KINASE (CK), TOTAL AND MB 2018-04-25 11:41:00 Test Item Value Reference Range Interpretation Comments CREATINE KINASE TOTAL (BEAKER) 86 U/L 29-200 (test code = 380) CREATINE KINASE-MB (BEAKER) (test 4.9 ng/mL 0.0-6.6 code = 750) CREATINE KINASE-MB INDEX (BEAKER) 5.7 % (test code = 395) CK-MB Reference Range:<6.7 Normal6.7-10.0 Borderline>10.0 AbnormalLIPID [id number] 11:34:00 Test Item Value Reference Range Interpretation Comments TRIGLYCERIDES (BEAKER) (test code = 127 mg/dL 540) CHOLESTEROL (BEAKER) (test code = 131 mg/dL 631) HDL CHOLESTEROL (BEAKER) (test code 32 mg/dL = 976) LDL CHOLESTEROL CALCULATED (BEAKER) 74 mg/dL (test code = 633) Triglyceride Reference Range: Low Risk <150 Borderline 150-199 High Risk 200-499 Very High Risk >=500Cholesterol Reference Range: Low Risk <200 Borderline 200-239 High Risk >240HDL Cholesterol Reference Range: Low Risk >=60 High Risk <40LDL Cholesterol Reference Range: Optimal <100 Near Optimal 100-129 Borderline 130-159 High 160-189 Very High >=190PROTHROMBIN TIME/[id number] 11:28:00 Test Item Value Reference Range Interpretation Comments PROTIME (BEAKER) (test code = 14.2 seconds 11.7-14.7 759) INR (BEAKER) (test code = 370) 1.1 <=5.9 RECOMMENDED COUMADIN/WARFARIN INR THERAPY RANGESSTANDARD DOSE: 2.0 - 3.0 Includes: PROPHYLAXIS forvenous thrombosis, systemic embolization; TREATMENT for venous thrombosis and/or pulmonary embolus.HIGH RISK: Target INR is 2.5-3.5 for patients with mechanical heart valves.[id number] 11:28:00 Test Item Value Reference Range Interpretation Comments PARTIAL THROMBOPLASTIN TIME 30.1 seconds 22.5-36.0 (BEAKER) (test code = 760) CBC (HEMOGRAM ONLY)2018-04-25 11:12:00 Test Item Value Reference Range Interpretation Comments WHITE BLOOD CELL COUNT (BEAKER) 9.1 K/ L 3.5-10.5 (test code = 775) RED BLOOD CELL COUNT (BEAKER) 5.27 M/ L 4.63-6.08 (test code = 761) HEMOGLOBIN (BEAKER) (test code = 15.1 GM/DL 13.7-17.5 410) HEMATOCRIT (BEAKER) (test code = 45.5 % 40.1-51.0 411) MEAN CORPUSCULAR VOLUME (BEAKER) 86.3 fL 79.0-92.2 (test code = 753) MEAN CORPUSCULAR HEMOGLOBIN 28.7 pg 25.7-32.2 (BEAKER) (test code = 751) MEAN CORPUSCULAR HEMOGLOBIN CONC 33.2 GM/DL 32.3-36.5 (BEAKER) (test code = 752) RED CELL DISTRIBUTION WIDTH 14.3 % 11.6-14.4 (BEAKER) (test code = 412) PLATELET COUNT (BEAKER) (test 228 K/CU MM 150-450 code = 756) MEAN PLATELET VOLUME (BEAKER) 10.5 fL 9.4-12.4 (test code = 754) NUCLEATED RED BLOOD CELLS 0 /100 WBC 0-0 (BEAKER) (test code = 413) CT, BRAIN, WITHOUT [id number] 09:27:00FINAL REPORT CT head without contrast INDICATION: [...] findings as discussed above. Signed: Barrington Quiñones MDReport Verified Date/Time: 04/25/2018 09:27:15 Reading Location: [facility] B1 C013V Neuro Reading Room Electronically signedby: BARRINGTON QUIÑONES M.D. on 04/25/2018 09:27 AM
[2020-11-20] MEDS ORDERED: BENZONATATE 100 MG CAP PO ONE (13:48)
--- NOTE | 2020-11-20 14:19 | RAD REPORT ---
EXAM DESCRIPTION: Romulo Florian (2 Views)11/20/2020 2:07 pm CLINICAL HISTORY: Cough COMPARISON: 2014 FINDINGS: The lungs appear clear of acute infiltrate. The heart is moderately enlarged IMPRESSION: No acute abnormalities displayed
[2020-11-20 14:50] LABS: SARS-COV-2 RT PCR NEGATIVE (NEGATIVE)
--- NOTE | 2020-11-20 15:20 | EDPHYS ---
Physician Documentation [facility] Name: Vin Waller Jr Age: 65 yrs Sex: Male : 1955 Arrival Date: 11/20/2020 Time: 13:01 Bed 14 Private MD: Tolu Azar HPI: 11/20 13:18 This 65 yrs old Male presents to ER via Unassigned with complaints of Cough. cp 13:18 The patient or guardian reports cough, with productive sputum, that is green. Onset: cp The symptoms/episode began/occurred last night. Historical: - Allergies: 13:19 Erythromycin; aa5 - PMHx: 13:19 CHF; CVA; Gout; [place] - bilateral hearing aids - in place; Hypertension; Atrial Fib; aa5 Diabetes - NIDDM; - PSHx: 13:19 Appendectomy; aa5 - Immunization history:: Adult Immunizations unknown. - Social history:: Smoking status: Patient denies any tobacco usage or history of. ROS: 13:20 Constitutional: Negative for body aches, chills, fever, poor PO intake. cp 13:20 Cardiovascular: Negative for chest pain. 13:20 Respiratory: Positive for cough, with green sputum, Negative for shortness of breath, wheezing. 13:20 Abdomen/GI: Negative for abdominal pain, nausea, vomiting, and diarrhea. Exam: 13:21 Head/Face: Normocephalic, atraumatic. cp 13:21 Constitutional: The patient appears in no acute distress, alert, awake, non-diaphoretic, non-toxic, well developed, well nourished. 13:21 Eyes: Periorbital structures: appear normal, Conjunctiva: normal, no exudate, no injection, Sclera: no appreciated abnormality, Lids and lashes: appear normal, bilaterally. 13:21 ENT: External ear(s): are unremarkable, Nose: is normal, Mouth: Lips: moist, Oral mucosa: moist, Posterior pharynx: Airway: no evidence of obstruction, patent. 13:21 Chest/axilla: Inspection: normal, Palpation: is normal, no crepitus, no tenderness. 13:21 Cardiovascular: Rate: normal, Edema: ankle edema, that is mild, JVD: is not appreciated. 13:21 Respiratory: the patient does not display signs of respiratory distress, Respirations: normal, no use of accessory muscles, no retractions, labored breathing, is not present, accessory muscle usage, is absent, Breath sounds: are clear throughout, no decreased breath sounds. 13:21 Abdomen/GI: Exam negative for discomfort, distension, guarding, Inspection: abdomen appears normal. Vital Signs: 13:08 BP 165 / 103; Pulse 74; Resp 18 S; Temp 99.1(O); Pulse Ox 95% on R/A; Weight 120.2 kg aa5 (R); Height 5 ft. 10 in. (177.80 cm) (R); 14:16 Pulse 81; Resp 19 S; Pulse Ox 95% on R/A; jd3 15:19 BP 185 / 98; Pulse 74; Resp 19 S; Pulse Ox 96% on Nebulizer Mask; jd3 13:08 Body Mass Index 38.02 (120.20 kg, 177.80 cm) aa5 MDM: 13:12 Patient medically screened. cp 15:00 Differential Diagnosis: Bronchitis Influenza Viral Syndrome Pneumonia. cp 15:18 Data reviewed: vital signs, nurses notes, lab test result(s), radiologic studies, plain cp films. 15:18 Test interpretation: by ED physician or midlevel provider: plain radiologic studies. cp Counseling: I had a detailed discussion with the patient and/or guardian regarding: the historical points, exam findings, and any diagnostic results supporting the discharge/admit diagnosis, lab results, radiology results, the need for outpatient follow up, an last ironer, to return to the emergency department if symptoms worsen or persist or if there are any questions or concerns that arise at home. ED course: VSS. Patient appears non-toxic and no signs of respiratory distress. Will discharge to home for continued monitoring. 11/20 13:19 Order name: Strep cp 11/20 13:19 Order name: XRAY Chest Pa And Lat (2 Views); Complete Time: 14:21 cp 11/20 14:22 Interpretation: Report reviewed. 11/20 14:36 Order name: Throat Culture EDMS 11/20 14:50 Order name: COVID-19/FLU A+B EDMS Administered Medications: 13:34 Drug: Tessalon Perle (benzonatate) 200 mg Route: PO; jd3 14:30 Follow up: Response: No adverse reaction jd3 15:18 Drug: Albuterol 2.5 mg Route: Inhalation; jd3 15:45 Follow up: Response: No adverse reaction jd3 15:18 Drug: AtroVENT (ipratropium) Aerosol 0.5 mg Route: Inhalation; jd3 15:45 Follow up: Response: No adverse reaction jd3 Disposition: 15:45 Chart complete. cp 11/21 06:56 Co-signature as Attending Physician, Tolu Fournier MD I agree with the assessment and milagros plan of care. Disposition: 11/20/20 15:19 Discharged to Home. Impression: Acute bronchitis. - Condition is Stable. - Discharge Instructions: Acute Bronchitis, Adult. - Prescriptions for Tessalon Perles 100 mg Oral Capsule - take 2 capsule by ORAL route every 8 hours As needed; 30 capsule. Albuterol Sulfate 90 mcg/actuation - inhale 1-2 puff by INHALATION route every 4-6 hours; 1 Inhaler. Augmentin 875- 125 mg Oral Tablet - take 1 tablet by ORAL route every 12 hours for 10 days; 20 tablet. Medrol (Rex) 4 mg Oral Tablets, Dose Pack - take 1 tablet by ORAL route as directed - follow package instructions; 1 packet. - Medication Reconciliation Form, Thank You Letter, Antibiotic Education, Prescription Opioid Use form. - Follow up: Private Physician; When: 2 - 3 days; Reason: Worsening of condition. - Problem is new. - Symptoms have improved. Signatures: Dispatcher [employer] Tolu Levy MD MD cha Calderon, Audri, RN RN aa5 Tolu Crane PA PA Joe Nolan RN RN jd3 Corrections: (The following items were deleted from the chart) 11/20 14:06 13:20 CORONAVIRUS+MR.LAB.BRZ ordered. [facility] 14:07 13:20 Influenza Screen (A \T\ B)+BA.LAB.BRZ ordered. [facility] EDMS 15:44 15:19 11/20/2020 15:19 Discharged to Home. Impression: Acute bronchitis. Condition is jd3 Stable. Forms are Medication Reconciliation Form, Thank You Letter, Antibiotic Education, Prescription Opioid Use. Follow up: Private Physician; When: 2 - 3 days; Reason: Worsening of condition. Problem is new. Symptoms have improved. cp
--- NOTE | 2020-11-20 15:20 | ER ---
Nurse's Notes [facility] Name: Vin Waller Jr Age: 65 yrs Sex: Male : 1955 Arrival Date: 11/20/2020 Time: 13:01 Bed 14 Private MD: Diagnosis: Acute bronchitis Presentation: 11/20 13:08 Chief complaint: Patient states: cough and scratchy throat that began last night. aa5 13:08 Coronavirus screen: cough unrelated to allergies. Ebola Screen: Patient negative for aa5 fever greater than or equal to 101.5 degrees Fahrenheit, and additional compatible Ebola Virus Disease symptoms. Initial Sepsis Screen: Does the patient meet any 2 criteria? No. Patient's initial sepsis screen is negative. Does the patient have a suspected source of infection? No. Patient's initial sepsis screen is negative. Risk Assessment: Do you want to hurt yourself or someone else? Patient reports no desire to harm self or others. Onset of symptoms was November 2020. 13:08 Acuity: DORY 4 aa5 13:08 Method Of Arrival: Ambulatory aa5 Historical: - Allergies: 13:19 Erythromycin; aa5 - PMHx: 13:19 CHF; CVA; Gout; [place] - bilateral hearing aids - in place; Hypertension; Atrial Fib; aa5 Diabetes - NIDDM; - PSHx: 13:19 Appendectomy; aa5 - Immunization history:: Adult Immunizations unknown. - Social history:: Smoking status: Patient denies any tobacco usage or history of. Screenin:16 Abuse screen: Denies threats or abuse. Nutritional screening: No deficits noted. jd3 Tuberculosis screening: No symptoms or risk factors identified. Fall Risk Ambulatory Aid- None/Bed Rest/Nurse Assist (0 pts). Gait- Normal/Bed Rest/Wheelchair (0 pts) Mental Status- Oriented to own ability (0 pts). Total Martines Fall Scale indicates No Risk (0-24 pts). Assessment: 13:22 General: Appears in no apparent distress. comfortable, Behavior is calm, cooperative, jd3 appropriate for age. Pain: Complains of pain in throat Quality of pain is described as aching. Neuro: Level of Consciousness is awake, alert, obeys commands, Oriented to person, place, time, situation. Cardiovascular: Denies chest pain, Capillary refill < 3 seconds Patient's skin is warm and dry. Respiratory: Reports shortness of breath on exertion cough that is non-productive, persistent Airway is patent Respiratory effort is even, unlabored, Respiratory pattern is regular, symmetrical. GI: No signs and/or symptoms were reported involving the gastrointestinal system. : No signs and/or symptoms were reported regarding the genitourinary system. EENT: No signs and/or symptoms were reported regarding the EENT system. Derm: Skin is intact, Skin is dry, Skin is normal, Skin temperature is warm. Musculoskeletal: Circulation, motion, and sensation intact. Range of motion: intact in all extremities. 14:16 Reassessment: Patient appears in no apparent distress at this time. No changes from jd3 previously documented assessment. Patient and/or family updated on plan of care and expected duration. Pain level reassessed. Patient is alert, oriented x 3, equal unlabored respirations, skin warm/dry/pink. 15:19 Reassessment: Patient appears in no apparent distress at this time. No changes from jd3 previously documented assessment. Patient and/or family updated on plan of care and expected duration. Pain level reassessed. Patient is alert, oriented x 3, equal unlabored respirations, skin warm/dry/pink. Vital Signs: 13:08 BP 165 / 103; Pulse 74; Resp 18 S; Temp 99.1(O); Pulse Ox 95% on R/A; Weight 120.2 kg aa5 (R); Height 5 ft. 10 in. (177.80 cm) (R); 14:16 Pulse 81; Resp 19 S; Pulse Ox 95% on R/A; jd3 15:19 BP 185 / 98; Pulse 74; Resp 19 S; Pulse Ox 96% on Nebulizer Mask; jd3 13:08 Body Mass Index 38.02 (120.20 kg, 177.80 cm) aa5 ED Course: 13:01 Patient arrived in ED. am2 13:08 Arm band placed on Patient placed in an exam room, on a stretcher. aa5 13:09 Joe Edwards, MANAN is Primary Nurse. jd3 13:10 Tolu Crane PA is PHCP. cp 13:10 Tolu Fournier MD is Attending Physician. cp 13:18 Triage completed. aa5 14:05 XRAY Chest Pa And Lat (2 Views) In Process Unspecified. EDMS 14:17 Patient has correct armband on for positive identification. Bed in low position. Call jd3 light in reach. Side rails up X 1. Adult w/ patient. Pulse ox on. NIBP on. 15:46 No provider procedures requiring assistance completed. Patient did not have IV access jd3 during this emergency room visit. Administered Medications: 13:34 Drug: Tessalon Perle (benzonatate) 200 mg Route: PO; jd3 14:30 Follow up: Response: No adverse reaction jd3 15:18 Drug: Albuterol 2.5 mg Route: Inhalation; jd3 15:45 Follow up: Response: No adverse reaction jd3 15:18 Drug: AtroVENT (ipratropium) Aerosol 0.5 mg Route: Inhalation; jd3 15:45 Follow up: Response: No adverse reaction jd3 Outcome: 15:19 Discharge ordered by . maikel 15:44 Patient left the ED. jd3 15:46 Discharged to home via wheelchair, with family. jd3 15:46 Condition: stable 15:46 Discharge instructions given to patient, family, Instructed on discharge instructions, follow up and referral plans. medication usage, Demonstrated understanding of instructions, follow-up care, medications, Prescriptions given X 4. Signatures: Dispatcher [employer] EDMS Karissa Pitts, RN RN aa5 Tolu Crane PA PA Selam Diaz am2 Joe Edwards RN RN jd3 Corrections: (The following items were deleted from the chart) 14:07 13:27 Influenza Screen (A \T\ B)+BA.LAB.BRZ drawn and sent. j EDNC
[2020-11-20] MEDS ORDERED: IPRATROPIUM BROM 0.5MG/2.5ML ONE (15:34)
[2020-11-20] MEDS ORDERED: ALBUTEROL 2.5 MG/3 ML NEB SOL ONE (15:34)
[2020-11-20 15:49] VITALS: TEMP 99.1
[2020-11-20 15:51] VITALS: BP 185/98; O2SAT 96
== END 2020-11-20 15:44 | disposition home or self-care (01) ==
LOC: ER 12:57
DX: J20.9 Acute bronchitis, unspecified (principal); I10 Essential (primary) hypertension; Z20.822 Contact with and (suspected) exposure to COVID-19; Z88.3 Allergy status to other anti-infective agents; Z86.73 Personal history of transient ischemic attack (TIA), and cerebral infarction without residual deficits
CPT/HCPCS: 87070; 87081; 0240U; 71046; 99284

== ENCOUNTER 2021-07-08 20:14 | Inpatient (IN) | payer BC ==
--- OUTSIDE RECORDS SUMMARY | 2021-07-08 20:17 | XMS REPORT | Continuity of Care Document ---
:1955 Author Organization [facility] t Address [address] [place] [address] Care Team Providers Name Role Phone Norma Villanueva Attending Clinician Unavailable MIRTHA BAILEY Attending Clinician Unavailable MIRTHA BAILEY Admitting Clinician Unavailable Payers Payer Name Policy Type Policy Number Effective Date Expiration Date S ource Problems This patient has no known problems. Allergies, Adverse Reactions, Alerts Allergy Allergy Status Severity Reaction(s) Onset Inactive Treating Comm ents Source Name Type Date Date Clinician No Known DA Active U [facility] Allergie 12-02 [facility] 00:00: [address] No Known DA Active U [facility] Allergie 12-02 [facility] 00:00: [address] Medications This patient has no known medications. Procedures This patient has no known procedures. Encounters Start End Encounter Admission Attending Care Care Encounter Source Date/Time Date/Time Type Type Clinicians Facility Department ID 2020-12-02 2020-12-02 Outpatient JULIO CÉSAR Villanueva SURG [id number] -20 [facility] 15:30:00 15:30:[id number] [facility] Results Test Description Test Time Test Comments Results Result Comments Source GLUCOSE BEDSIDE TESTING 2020-12-03 11:36:00 Test Item Value Reference Range Interpretation Comme nts GLUCOSE BEDSIDE TESTING (test code = GLUBED) 229 MG/DL 60-99 H GLUCOSE BEDSIDE [id number] 07:48:00 Test Item Value Reference Range Interpretation Comments GLUCOSE BEDSIDE TESTING (test code 229 MG/DL 60-99 H = GLUBED) BASIC METABOLIC [id number] 04:52:00 Test Item Value Reference Range Interpretation Comments SODIUM (test code = 136 MMOL/L 137-145 L NA) POTASSIUM (test code = 3.5 MMOL/L 3.5-5.1 N K) CHLORIDE (test code = 104 MMOL/L 98-107 N CL) CARBON DIOXIDE (test 23 MMOL/L 22-30 N code = CO2) ANION GAP (test code = 13 MMOL/L 14-24 L GAP) GLUCOSE (test code = 184 MG/DL 74-106 H GLU) BLOOD UREA NITROGEN 21 MG/DL 9-20 H (test code = BUN) GLOMERULAR FILTRATION > 60 Report ing units: RATE (test code = GFR) ml/mi n/1.73 m2 (Modified MDRD Formula)Referen ce Range: > or = 6 0 ml/min/1.73 m2 CREATININE (test code 0.90 MG/DL 0.66-1.25 = CREAT) CALCIUM (test code = 8.5 MG/DL 8.4-10.2 N CA) CBC W/AUTO [id number] 04:39:00 Test Item Value Reference Range Interpretation Comments WHITE BLOOD CELL (test code = 18.1 K/MM3 3.8-9.8 H WBC) RED BLOOD CELL (test code = 5.31 M/MM3 3.95-5.67 N RBC) HEMOGLOBIN (test code = HGB) 15.5 G/DL 12.4-16.7 N HEMATOCRIT (test code = HCT) 47.8 % 35.9-49.5 N MEAN CELL VOLUME (test code = 90 fL 81.7-96.1 N MCV) MEAN CELL HGB (test code = MCH) 29.2 pg 27.6-33.2 N MEAN CELL HGB CONCETRATION 32.4 % 32.9-35.5 L (test code = MCHC) RED CELL DISTRIBUTION WIDTH 14.2 % 12.1-15.2 N (test code = RDW) PLATELET COUNT (test code = 177 K/MM3 129-368 N PLT) MEAN PLATELET VOLUME (test code 11.0 fl 7.4-10.4 H = MPV) NEUTROPHIL % (test code = NT%) 83.7 % 43-75 H IMMATURE GRANULOCYTE % (test 1.2 % 0.0-2.0 N code = IG%) LYMPHOCYTE % (test code = LY%) 5.4 % 14-44 L MONOCYTE % (test code = MO%) 6.8 % 4-13 N EOSINOPHIL % (test code = EO%) 2.3 % 0-6 N BASOPHIL % (test code = BA%) 0.6 % 0-2 N NUCLEATED RBC % (test code = 0.0 % 0-1.0 N NRBC%) NEUTROPHIL # (test code = NT#) 15.16 K/mm3 2.0-7.6 H IMMATURE GRANULOCYTE # (test 0.22 x10 3/uL 0-0.03 H code = IG#) LYMPHOCYTE # (test code = LY#) 0.98 K/mm3 1.0-3.8 L MONOCYTE # (test code = MO#) 1.24 K/mm3 0.1-0.8 H EOSINOPHIL # (test code = EO#) 0.42 K/mm3 0.0-0.2 H BASOPHIL # (test code = BA#) 0.10 K/mm3 0.0-0.2 N NUCLEATED RBC # (test code = 0.00 K/mm3 0.0-0.1 N NRBC#) GLUCOSE BEDSIDE [id number] 19:58:00 Test Item Value Reference Range Interpretation Comments GLUCOSE BEDSIDE TESTING (test code 234 MG/DL 60-99 H = GLUBED) PROTHROMBIN [id number] 14:26:00 Test Item Value Reference Range Interpretation Comments PROTHROMBIN TIME PATIENT 18.1 9.5-12.7 H (test code = PTP) INTERNATIONAL NORMAL RATIO 1.6 0.86-1.14 H T he INR is to be used (test code = INR) only for m onitoring oral anticoagulantth erapy. INDICATION INR VALUE ------- ------- -----1. Prophylaxis, d eep venous thrombos is, including high risk surgery. 2.0 - 3.0 2. Prophylaxis, de ep venous thrombos is, hip surgery, tr eatment for deep venous thrombosis or pulmonary preve ntion of systemic embolism in pat ients with valvula r heart disease, atrial fibrillation, tissue heart va lve, or acute myocardia l infarction. 2.0 - 3.0 3. Mechanical pros thesis heart valves, recurrent syste marilyn embolism. 3.0 - 4.5 PTT [id number] 14:26:00 Test Item Value Reference Range Interpretation Comments PTT ACTIVATED (test code = APTT) 38.1 SECONDS 25.1-36.5 H BASIC METABOLIC [id number] 14:25:00 Test Item Value Reference Range Interpretation Comments SODIUM (test code = 141 MMOL/L 137-145 N NA) POTASSIUM (test code = 3.7 MMOL/L 3.5-5.1 N K) CHLORIDE (test code = 103 MMOL/L 98-107 N CL) CARBON DIOXIDE (test 29 MMOL/L 22-30 N code = CO2) GLUCOSE (test code = 154 MG/DL 74-106 H GLU) BLOOD UREA NITROGEN 23 MG/DL 9-20 H (test code = BUN) GLOMERULAR FILTRATION > 60 Report ing units: RATE (test code = GFR) ml/mi n/1.73 m2 (Modified MDRD Formula)Referen ce Range: > or = 6 0 ml/min/1.73 m2 CREATININE (test code 1.20 MG/DL 0.66-1.25 N = CREAT) CALCIUM (test code = 8.8 MG/DL 8.4-10.2 N CA) [id number] 14:25:00 Test Item Value Reference Range Interpretation Comments MAGNESIUM (test code = MAG) 2.1 MG/DL 1.6-2.3 N CBC W/AUTO [id number] 13:56:00 Test Item Value Reference Range Interpretation Comments WHITE BLOOD CELL (test code = 15.6 K/MM3 3.8-9.8 H WBC) RED BLOOD CELL (test code = 5.66 M/MM3 3.95-5.67 N RBC) HEMOGLOBIN (test code = HGB) 16.2 G/DL 12.4-16.7 N HEMATOCRIT (test code = HCT) 50.2 % 35.9-49.5 H MEAN CELL VOLUME (test code = 89 fL 81.7-96.1 N MCV) MEAN CELL HGB (test code = MCH) 28.6 pg 27.6-33.2 N MEAN CELL HGB CONCETRATION 32.3 % 32.9-35.5 L (test code = MCHC) RED CELL DISTRIBUTION WIDTH 14.4 % 12.1-15.2 N (test code = RDW) PLATELET COUNT (test code = 216 K/MM3 129-368 N PLT) MEAN PLATELET VOLUME (test code 10.8 fl 7.4-10.4 H = MPV) NEUTROPHIL % (test code = NT%) 81.1 % 43-75 H IMMATURE GRANULOCYTE % (test 1.8 % 0.0-2.0 N code = IG%) LYMPHOCYTE % (test code = LY%) 6.9 % 14-44 L MONOCYTE % (test code = MO%) 6.3 % 4-13 N EOSINOPHIL % (test code = EO%) 3.3 % 0-6 N BASOPHIL % (test code = BA%) 0.6 % 0-2 N NUCLEATED RBC % (test code = 0.0 % 0-1.0 N NRBC%) NEUTROPHIL # (test code = NT#) 12.67 K/mm3 2.0-7.6 H IMMATURE GRANULOCYTE # (test 0.28 x10 3/uL 0-0.03 H code = IG#) LYMPHOCYTE # (test code = LY#) 1.08 K/mm3 1.0-3.8 N MONOCYTE # (test code = MO#) 0.99 K/mm3 0.1-0.8 H EOSINOPHIL # (test code = EO#) 0.51 K/mm3 0.0-0.2 H BASOPHIL # (test code = BA#) 0.10 K/mm3 0.0-0.2 N NUCLEATED RBC # (test code = 0.00 K/mm3 0.0-0.1 N NRBC#) COVID 19 Asymptomatic IH [id number] 13:08:00 Test Item Value Reference Range Interpretation Comments COVID 19 NEGATIVE Negative "Negative resul ts from Asymptomatic IH AG patients with symptom (test code = onset beyondfiv e days, COVNONPUIAG) should be yuni marla as presumptive, andconfirmation with a molecular assay , if necessary forpa tient management may be performed. Nega tive results do notr ule out COVID-19 and sh ould not be used as the sole basisfor treatm ent or patient managem ent decisions, includinginfect ion control decisio ns. Negative result s should beconsidered in the context of a pa tients recent exposure s,history, and the presenc e of clinical signs and symptomsconsist ent with COVID-19.This t est detects both vi able andnon-viable S ARS-CoV and SARS CoV-2. Test performance dep endson the amount of virus (antigen) in the sample." [id number] 05:49:00 Test Item Value Reference Range Interpretation Comments PHOSPHORUS (BEAKER) (test code = 3.2 mg/dL 2.3-4.7 604) [id number] 05:49:00 Test Item Value Reference Range Interpretation Comments MAGNESIUM (BEAKER) (test code = 1.9 mg/dL 1.6-2.6 627) BASIC METABOLIC [id number] 05:25:00 Test Item Value Reference Range Interpretation [...] DIALYSIS PATIEN TS. MR, MRA, BRAIN, WITHOUT [id number] 19:36:00Reason for exam:->Ischemic Stroke EvaluationFINAL REPORT MRA brain and neck without contrast 04/26/2018 7:35 PM CLINICAL HISTORY: StrokeIschemic Stroke Evaluationconcern for stroke COMPARISON: None available TECHNIQUE: Two- and three-dimensional hbos-ym-ettlci MRA images of the intra- and extracranial arterial vasculaturewas performed, from which maximal intensity projection 3-D reconstructions were created. FINDINGS: MRA neck: There is no vessel occlusion or flow-limiting stenosis. There is no NASCET-quantifiable cervical internal carotid artery stenosis. Flow is antegrade in both vertebral arteries. MRA [place]: There is no vessel occlusion, flow-limiting stenosis, or aneurysm. IMPRESSION: Negative intra-and extracranial MRAs. Signed: Kristian Hurtado Verified Date/Time: 04/26/2018 19:36:42 Reading Location: [facility] Reading Room MR, MRA, NECK, WITHOUT IV [id number] 19:36:00 Reason for exam:->Ischemic Stroke EvaluationFINAL REPORT MRA brain and neck without contrast 04/26/2018 7:35 PM CLINICAL H ISTORY: StrokeIschemic Stroke Evaluationconcern for stroke COMPARISON: None available TECHNIQUE: Two- and three-dimensional rjqm-fo-qbcrde MRA images of the intra- and extracranial arterial vasculaturewas performed, from which maximal intensity projection 3-D reconstructions were created. FINDINGS: MRA neck: There is no vessel occlusion or flow-limiting stenosis. There is no NASCET- quantifiable cervical internal carotid artery stenosis. Flow is antegrade in both vertebral arteries. MRA [place]: There is no vessel occlusion, flow-limiting stenosis, or aneurysm. IMPRESSION: Negative intra-and extracranial MRAs. Signed: Kristian Hurtado Verified Date/Time: 04/26/2018 19:36:42 Reading Location: [facility] Reading Room MR, BRAIN, WITHOUT [id number] 19:35:00Reason for exam:->Ischemic Stroke EvaluationFINAL REPORT MRI [...] 2. Left sphenoid sinusitis. Signed: Kristian Hurtado MDReport Verified Date/Time: 04/26/2018 19:35:05 Reading Location: [facility] Reading Room HEMOGLOBIN [id number] 13:31:00 Test Item Value Reference Range Interpretation Comments HEMOGLOBIN A1C (BEAKER) (test code = 10.4 % 4.3-6.1 H 368) CREATINE KINASE (CK), TOTAL AND [id number] 08:03:00 Test Item Value Reference Range Interpretation Comments CREATINE KINASE TOTAL (BEAKER) 78 U/L 29-200 (test code = 380) CREATINE KINASE-MB (BEAKER) (test 4.0 ng/mL 0.0-6.6 code = 750) CREATINE KINASE-MB INDEX (BEAKER) 5.1 % (test code = 395) CK-MB Reference Range:<6.7 Normal6.7-10.0 Borderline>10.0 AbnormalTROPONIN [id number] 07:34:00 Test Item Value Reference Range Interpretation [...] acute neurological disease, and persistent tachyarrhythmia.BASIC METABOLIC [id number] 07:20:00 Test Item Value Reference Range Interpretation [...] PATIEN TS. CBC W/PLT COUNT & AUTO [id number] 06:38:00 Test Item Value Reference Range Interpretation [...] 0-1 PERCENT (BEAKER) (test code = 2801) [id number] 04:38:00 Test Item Value Reference Range Interpretation Comments RPR SCREEN (BEAKER) (test code = Nonreactive Nonreactive 420) TSH/FREE T4 IF [id number] 19:33:00 Test Item Value Reference Range Interpretation Comments THYROID STIMULATING HORMONE 0.98 uIU/mL 0.35-4.94 (BEAKER) (test code = 772) CREATINE KINASE (CK), TOTAL AND [id number] 18:51:00 Test Item Value Reference Range Interpretation Comments CREATINE KINASE TOTAL (BEAKER) 86 U/L 29-200 (test code = 380) CREATINE KINASE-MB (BEAKER) (test 4.7 ng/mL 0.0-6.6 code = 750) CREATINE KINASE-MB INDEX (BEAKER) 5.5 % (test code = 395) CK-MB Reference Range:<6.7 Normal6.7-10.0 Borderline>10.0 AbnormalTROPONIN [id number] 18:51:00 Test Item Value Reference Range Interpretation [...] acidosis, acute neurological disease, and persistent tachyarrhythmia.POCT-GLUCOSE [id number] 16:46:00 Test Item Value Reference Range Interpretation Comments POC-GLUCOSE METER 205 mg/dL 70-110 H TESTED AT [facility] 6720 (BEAKER) (test code = BRAED[place] [address] [place] 1538) [address] VITAMIN [id number] 15:26:00 Test Item Value Reference Range Interpretation Comments VITAMIN B12 (BEAKER) (test code = 520 pg/mL 213-816 774) BASIC METABOLIC [id number] 14:57:00 Test Item Value Reference Range Interpretation [...] NOT APPLICABLE FOR DIALYSIS PATIEN TS. TROPONIN [id number] 11:41:00 Test Item Value Reference Range Interpretation [...] 395) CK-MB Reference Range:<6.7 Normal6.7-10.0 Borderline>10.0 AbnormalLIPID [id number] 11:34:00 Test Item Value Reference Range Interpretation [...] Borderline 130-159 High 160-189 Very High >=190PROTHROMBIN [id number] 11:28:00 Test Item Value Reference Range Interpretation Comments PROTIME (BEAKER) (test code = 14.2 seconds 11.7-14.7 759) INR (BEAKER) (test code = 370) 1.1 <=5.9 RECOMMENDED COUMADIN/WARFARIN INR THERAPY RANGESSTANDARD DOSE: 2.0 - 3.0 Includes: PROPHYLAXIS forvenous thrombosis, systemic embolization; TREATMENT for venous thrombosis and/or pulmonary embolus.HIGH RISK: Target INR is 2.5-3.5 for patients with mechanical heart valves.[id number] 11:28:00 Test Item Value Reference Range Interpretation [...] (test code = 413) CT, BRAIN, WITHOUT [id number] 09:27:00FINAL REPORT CT head without contrast INDICATION: [...] findings as discussed above. Signed: Barrington Qui[facility]ones [facility] Verified Date/Time: 04/25/2018 09:27:15 Reading Location: [facility] C0[facility] Neuro Reading Room Electronically signedby: BARRINGTON QUIÑONES M.D. on 04/25/2018 09:27 AM
[2021-07-08] MEDS ORDERED: FUROSEMIDE 40 MG/4 ML VIAL ONE (21:08)
[2021-07-08] MEDS ORDERED: NITROGLYCERIN/D5W 50 MG/250 ML BTL IV ONE (21:08)
[2021-07-08 21:17] LABS: Protime INR 1.31
[2021-07-08 21:21] LABS: Absolute Lymphocytes (CBC) 2.9 K/uL (0.7-4.9); Hematocrit 46.7 % (39.6-49.0); Lymphocytes % 15.5 % (15.3-44.8); MPV 9.1 fL (7.6-11.3); RBC Red Blood Cell Count 5.18 M/uL (4.33-5.43)
[2021-07-08 21:21] LABS: Arterial Blood Carboxyhemoglob 1.6 % (0-1.5); Blood Gas Oxyhemoglobin 92.5 % (94-97); Blood O2 Saturation 94.9 % (92-98.5)
[2021-07-08 21:42] LABS: Albumin 3.6 g/dL (3.4-5.0); Bilirubin Direct 0.5 mg/dL (0-0.2); Bilirubin Total 1.4 mg/dL (0.2-1.0); Magnesium 2.6 mg/dL (1.8-2.4); Potassium 3.6 mmol/L (3.5-5.1); Protein, Total 8.6 g/dL (6.4-8.2); Troponin (Emerg Dept Use Only) 0.05 ng/mL (0.0-0.045)
--- NOTE | 2021-07-08 21:48 | RAD REPORT ---
EXAM DESCRIPTION: RAD - Chest Single View - 07/08/2021 9:26 pm CLINICAL HISTORY: DYSPNEA COMPARISON: November 2020 TECHNIQUE: AP portable chest image was obtained 07/08/2021 9:26 pm . FINDINGS: Prominent interstitial opacification present throughout both lung campbell with focally more pronounced airspace opacification in the lower right lung field. Vascular engorgement and cardiomega ly are present. Trachea is in the midline. No pneumothorax is present. No large pleural effusion. No acute bony abnormality seen. No acute aortic findings suspected. IMPRESSION: Above detailed findings favor moderate severity CHF/volume overload etiology. Focal asymmetric airspace opacification in the right base is probably part of failure as well though possibility of a superimposed pneumonia cannot be excluded.
[2021-07-08] MEDS ORDERED: CEFTRIAXONE 1000 MG/VIAL ONE (22:54)
--- NOTE | 2021-07-08 23:15 | ER ---
Nurse's Notes [facility] Name: Vin Waller Jr Age: 66 yrs Sex: Male : 1955 Arrival Date: 07/08/2021 Time: 20:18 Bed 15 Private MD: Diagnosis: Unspecified combined systolic (congestive) and diastolic (congestive) heart failure Presentation: 07/08 20:45 Chief complaint: Spouse and/or significant other states: pt started having difficulty bb breathing approx 2 hours ago pt has hx of CHF. Coronavirus screen: difficulty breathing. Ebola Screen: No symptoms or risks identified at this time. Initial Sepsis Screen: Does the patient meet any 2 criteria? RR > 20 per min. HR > 90 bpm. Yes Does the patient have a suspected source of infection? If YES to both, name of provider notified: Bg Walters MD. Risk Assessment: Do you want to hurt yourself or someone else? Patient reports no desire to harm self or others. Onset of symptoms was July 08, 2021. 20:45 Method Of Arrival: Wheelchair bb 20:45 Acuity: DORY 1 bb 20:45 Chief complaint: Spouse and/or significant other states: pt started having labored bb breathing about 2 hours ago pt has hx of CHF. Coronavirus screen: difficulty breathing. Ebola Screen: No symptoms or risks identified at this time. 20:45 Method Of Arrival: Wheelchair bb Triage Assessment: 23:04 Respiratory: Reports shortness of breath at rest since this morning Onset: The kd3 symptoms/episode began/occurred gradually, the patient has severe shortness of breath. Historical: - Allergies: 21:34 Erythromycin; bb - Home Meds: 23:04 allopurinol 100 mg Oral tab 1 tab once daily [Active]; carvedilol Oral [Active]; kd3 furosemide 80 mg Oral tab 1 tab once daily [Active]; Klor-Con M20 20 mEq Oral TbTQ 1 tab once daily [Active]; lisinopril 20 mg Oral tab 1 tab once daily [Active]; - PMHx: 21:34 Atrial Fib; CHF; CVA; Diabetes - NIDDM; Gout; [place] - bilateral hearing aids - in place; bb Hypertension; - Immunization history:: Client reports having NOT received the Covid vaccine. - Social history:: Smoking status: unknown. Screenin:02 Abuse screen: Denies threats or abuse. Denies injuries from another. Nutritional kd3 screening: No deficits noted. Tuberculosis screening: No symptoms or risk factors identified. Fall Risk IV access (20 points). Assessment: 23:03 General: Appears distressed, Behavior is calm, cooperative, appropriate for age. Pain: kd3 Complains of pain in chest. Neuro: No deficits noted. Level of Consciousness is awake, alert, obeys commands, Oriented to person, place, time, situation. Cardiovascular: Rhythm is regular. Respiratory: Airway is patent Respiratory effort is labored, Breath sounds are coarse bilaterally. GI: No deficits noted. : No deficits noted. EENT: No deficits noted. Derm: No deficits noted. Musculoskeletal: No deficits noted. 07/09 02:45 Reassessment: PT TOLERATING BIPAP Patient denies pain at this time. Patient states kd3 feeling better. Vital Signs: 07/08 20:45 BP 186 / 99; Pulse 103; Resp 48 S; Temp 98.8(O); Pulse Ox 80% on R/A; Weight 115.67 kg bb (R); Height 5 ft. 0 in. (152.40 cm) (R); 07/09 02:45 BP 112 / 68; Pulse 66; Pulse Ox 100% on BiPAP; Pain 0/10; kd3 02:46 Resp 18; kd3 04:50 BP 102 / 75; Pulse 72; Resp 17; Pulse Ox 95% on BiPAP; kd3 06:25 BP 127 / 87; Pulse 75; Resp 17; Pulse Ox 99% on BiPAP; kd3 07/08 20:45 Body Mass Index 49.80 (115.67 kg, 152.40 cm) bb ED Course: 07/08 20:18 Patient arrived in ED. [id number] 20:45 Arm band placed on Patient placed in an exam room, on a stretcher, on oxygen, on bb panel monitor, on pulse oximetry. 20:49 [facility]ax[facility] Day [facility]C [facility] kb 20:49 Bg Walters MD is Attending Physician. kb 20:51 Thi Jacobs, MANAN is Primary Nurse. kd3 21:19 BIPAP Sent. bb 21:26 XRAY Chest (1 view) In Process Unspecified. EDMS 21:33 Triage completed. bb 23:05 Patient has correct armband on for positive identification. hall monitor on. Pulse kd3 ox on. NIBP on. 23:15 Alexis Berry MD is Hospitalizing Provider. kb Administered Medications: 21:10 CANCELLED (Duplicate Order): Lasix (furosemide) 40 mg IVP once; give over 2 minutes kb 21:18 Drug: Lasix (furosemide) 60 mg Route: IVP; Site: left antecubital; bb 07/09 02:48 Follow up: Response: No adverse reaction kd3 07/08 21:19 Drug: Nitro Drip - (Nitroglycerin 50 mg, D5W 250 ml) Route: IV; Rate: 20 mcg/min; Site: left antecubital; 07/09 02:49 Follow up: IV Status: Completed infusion kd3 07/08 22:53 Drug: Rocephin (cefTRIAXone) 1 grams Route: IV; Rate: calculated rate; Site: left [facility] antecubital; 07/09 02:48 Follow up: IV Status: Completed infusion; IV Intake: 10ml kd3 Intake: 02:48 IV: 10ml; Total: 10ml. kd3 Outcome: 07/08 23:15 Decision to Hospitalize by Provider. kb 07/09 15:04 Patient left the ED. eb Signatures: Dispatcher [employer] EDMS Daxa Day, EVELYNE RICE-Veena Gan, RN RN bb Nirali Alvarez Jennifer [email or web address] Thi Jacobs RN RN kd3
--- NOTE | 2021-07-08 23:15 | EDPHYS ---
Physician Documentation [facility] Name: Vin Waller Jr Age: 66 yrs Sex: Male : 1955 Arrival Date: 07/08/2021 Time: 20:18 Bed 15 Private MD: ED Physician Bg Walters HPI: 07/08 23:34 This 66 yrs old Unknown Male presents to ER via Wheelchair with complaints of CHF kb Exacerbation, Shortness Of Breath, Cough. 23:34 The patient has shortness of breath at rest. Onset: The symptoms/episode began/occurred kb 1 hour(s) ago. Duration: The symptoms are continuous. The patient's shortness of breath is aggravated by exertion, is alleviated by nothing. Associated signs and symptoms: The patient has no apparent associated signs or symptoms. Severity of symptoms: At their worst the symptoms were severe in the emergency department the symptoms are unchanged. The patient has not experienced similar symptoms in the past. The patient has not recently seen a physician. 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 States he has CHF, but has also been exposed to covid. Historical: - Allergies: 21:34 Erythromycin; bb - Home Meds: 23:04 allopurinol 100 mg Oral tab 1 tab once daily [Active]; carvedilol Oral [Active]; kd3 furosemide 80 mg Oral tab 1 tab once daily [Active]; Klor-Con M20 20 mEq Oral TbTQ 1 tab once daily [Active]; lisinopril 20 mg Oral tab 1 tab once daily [Active]; - PMHx: 21:34 Atrial Fib; CHF; CVA; Diabetes - NIDDM; Gout; [place] - bilateral hearing aids - in place; bb Hypertension; - Immunization history:: Client reports having NOT received the Covid vaccine. - Social history:: Smoking status: unknown. ROS: 23:35 Constitutional: Negative for fever, chills, and weight loss. kb 23:35 Respiratory: Positive for cough, dyspnea on exertion, shortness of breath. 23:35 All other systems are negative. Exam: 23:35 Constitutional: This is a well developed, well nourished patient who is awake, alert, kb and in no acute distress. Head/Face: Normocephalic, atraumatic. ENT: Moist Mucous membranes Cardiovascular: Regular rate and rhythm with a normal S1 and S2. No gallops, murmurs, or rubs. No pulse deficits. Abdomen/GI: Soft, non-tender. No distention Skin: Warm, dry with normal turgor. Normal color. MS/ Extremity: Pulses equal, no cyanosis. Neurovascular intact. Full, normal range of motion. Neuro: Awake and alert, GCS 15, oriented to person, place, time, and situation. Moves all extremities. Normal gait. Psych: Awake, alert, with orientation to person, place and time. Behavior, mood, and affect are within normal limits. 23:35 Respiratory: moderate respiratory distress is noted, Respirations: labored breathing, Breath sounds: decreased breath sounds, are located in both bases, rhonchi, are located in both bases. Vital Signs: 20:45 BP 186 / 99; Pulse 103; Resp 48 S; Temp 98.8(O); Pulse Ox 80% on R/A; Weight 115.67 kg bb (R); Height 5 ft. 0 in. (152.40 cm) (R); 07/09 02:45 BP 112 / 68; Pulse 66; Pulse Ox 100% on BiPAP; Pain 0/10; kd3 02:46 Resp 18; kd3 04:50 BP 102 / 75; Pulse 72; Resp 17; Pulse Ox 95% on BiPAP; kd3 06:25 BP 127 / 87; Pulse 75; Resp 17; Pulse Ox 99% on BiPAP; kd3 07/08 20:45 Body Mass Index 49.80 (115.67 kg, 152.40 cm) bb MDM: 07/08 20:49 Patient medically screened. kb 23:33 Data reviewed: vital signs, nurses notes. Data interpreted: Pulse oximetry: on room air kb is 73 %. Interpretation: hypoxia. Counseling: I had a detailed discussion with the patient and/or guardian regarding: the historical points, exam findings, and any diagnostic results supporting the discharge/admit diagnosis, lab results, radiology results, the need for further work-up and treatment in the hospital. Physician consultation: Al GARCIA regarding admission, to the telemetry unit. patient's condition, and will see patient in ED. ED course: Pt doing better on bipap. O2 96%. 07/08 20:49 Order name: Basic Metabolic Panel; Complete Time: 21:51 kb 07/08 20:49 Order name: CBC with Diff; Complete Time: 21:25 kb 07/08 20:49 Order name: LFT's; Complete Time: 21:51 kb 07/08 20:49 Order name: Magnesium; Complete Time: 21:51 kb 07/08 20:49 Order name: NT PRO-BNP; Complete Time: 21:51 kb 07/08 20:49 Order name: PT-INR; Complete Time: 21:23 kb 07/08 20:49 Order name: Troponin (emerg Dept Use Only); Complete Time: 21:51 kb 07/08 20:52 Order name: COVID-19 SARS RT PCR (Document "Date of Onset" if Symptomatic); Complete kb Time: 23:43 07/08 21:20 Order name: ABG Arterial Blood Gas; Complete Time: 21:23 EDCA 07/09 11:10 Order name: CBC with Automated Diff EDMS 07/09 11:16 Order name: D-Dimer EDCA 07/09 11:21 Order name: Glucose, Ancillary Testing EDCA 07/09 11:26 Order name: Lactate EDCA 07/09 11:37 Order name: Hemoglobin A1c EDCA 07/08 20:49 Order name: XRAY Chest (1 view); Complete Time: 21:51 kb 07/08 20:49 Order name: EKG; Complete Time: 20:50 kb 07/08 20:53 Order name: BIPAP 07/09 11:41 Order name: Procalcitonin EDCA 07/09 11:44 Order name: CBC Smear Scan EDMS 07/09 11:45 Order name: Comprehensive Metabolic Panel EDCA 07/09 11:45 Order name: Phosphorus EDMS 07/09 11:45 Order name: Troponin I EDMS 07/09 11:45 Order name: Lipid Profile EDCA 07/09 11:45 Order name: T4 Free EDMS 07/09 11:45 Order name: Magnesium EDMS 07/09 11:45 Order name: Thyroid Stimulating Hormone EDCA 07/08 20:49 Order name: Cardiac monitoring; Complete Time: 21:19 kb 07/08 20:49 Order name: EKG - Nurse/Tech; Complete Time: 21:07 kb 07/08 20:49 Order name: IV Saline Lock; Complete Time: 21:07 kb 07/08 20:49 Order name: Labs collected and sent; Complete Time: 21:07 kb 07/08 20:49 Order name: O2 Per Protocol; Complete Time: 21:07 kb 07/08 20:49 Order name: O2 Sat Monitoring; Complete Time: 21:07 kb 07/08 23:02 Order name: CONS Physician Consult EDMS Administered Medications: 21:10 CANCELLED (Duplicate Order): Lasix (furosemide) 40 mg IVP once; give over 2 minutes kb 21:18 Drug: Lasix (furosemide) 60 mg Route: IVP; Site: left antecubital; 07/09 02:48 Follow up: Response: No adverse reaction kd3 07/08 21:19 Drug: Nitro Drip - (Nitroglycerin 50 mg, D5W 250 ml) Route: IV; Rate: 20 mcg/min; Site: left [facility]; 07/09 02:49 Follow up: IV Status: Completed infusion kd3 07/08 22:53 Drug: Rocephin (cefTRIAXone) 1 grams Route: IV; Rate: calculated rate; Site: [address]; 07/09 02:48 Follow up: IV Status: Completed infusion; IV Intake: 10ml 3 Disposition: 19:42 Co-signature as Attending Physician, Bg Walters MD. [facility] Disposition Summary: 07/08/21 23:15 Hospitalization Ordered Hospitalization Status: Inpatient Admission kb Provider: Alexis Berry Condition: Stable kb Problem: an acute exacerbation kb Symptoms: are unchanged kb Bed/Room Type: Standard kb Location: Intensive Care Unit(07/09/21 14:13) dw Room Assignment: 3-(07/09/21 14:13) dw Diagnosis - Unspecified combined systolic (congestive) and diastolic (congestive) heart failure kb Forms: - Medication Reconciliation Form kb - SBAR form kb Signatures: Dispatcher [employer] EDDaxa Preston FNP-C FNP-Ckb Webb, Martha RN Kat Wright RN RN dw Ballard, Brenda, RN RN Bg Person MD MD [facility] Thi Jacobs RN RN kd3 Corrections: (The following items were deleted from the chart) 07/08 21:10 21:03 Lasix (furosemide) 40 mg IVP once; give over 2 minutes ordered. kb kb 23:41 23:15 Telemetry/MedSurg (Inpatient) kb mw 23:41 23:15 kb mw 07/09 14:13 07/08 23:41 [facility] mw dw 07/09 14:07/08 23:41 [facility] dw
--- NOTE | 2021-07-09 00:15 | P.HP ---
Certification for Inpatient Patient admitted to: Inpatient With expected LOS: >2 Midnights Patient will require the following post-hospital care: None Practitioner: I am a practitioner with admitting privileges, knowledge of patient current condition, hospital course, and medical plan of care. Services: Services provided to patient in accordance with Admission requirements found in Title 42 Section 412.3 of the Code of Federal Regulations <Al Venegas - Last Filed: 07/09/21 00:10> Patient History Date of Service: 07/08/21 Reason for admission: chf exacerbation History of Present Illness: Mr. Waller is a 66 yo M with CHF, HTN, DM, atrial fibrillation on xarelto, JEFF on CPAP, history of CVA who presents with sudden onset shortness of breath beginning today at 8:30pm. Upon arrival to the ED, sats were 73% on room air and he was struggling to breathe. He says when he got home from work he had chills, cough productive of sputum, no appetite so he laid down to take a nap. When he awoke, he could not catch his breath. He says he was scheduled to get a pacemaker this year but there were no appointments available so it got moved to July. He takes 80mg of Lasix PO daily and has noticed increased swelling in his legs for the past week. WBC 19 HCO3 18 BUN 24 Cr 1.68 GFR 41 Glu 347 Tbili 1.4 Dbili 0.5 alk phos 232 troponin 0.05 CXR IMPRESSION: Above detailed findings favor moderate severity CHF/volume overload etiology. Focal asymmetric airspace opacification in the right base is probably part of failure as well though possibility of a superimposed pneumonia cannot be excluded. - Past Medical/Surgical History Diabetic: Yes -: Hypertension -: Diabetes mellitus type 2 -: Congestive heart failure -: CVA 2018 -: Gout -: sleep apnea -: atrial fibrillation on xarelto -: appendectomy - Family History Mother -: Heart disease Notes: hep C Father -: Hypertension - Social History Smoking Status: Never smoker Alcohol use: Yes CD- Drugs: No Caffeine use: No Place of Residence: Home <Maia Venegasanselmo Green - Last Filed: 07/09/21 00:10> Date of Service: 07/08/21 <Alexis Berry - Last Filed: 07/10/21 18:25> Allergies erythromycin base Adverse Reaction (Verified 05/19/19 23:08) upset stomach Home Medications: Atorvastatin Calcium [Lipitor*] 1 tab PO BEDTIME 05/20/19 Eplerenone 1 tab PO DAILY 05/20/19 Furosemide 1 tab PO DAILY 05/20/19 Metformin ER [Glucophage ER*] 1 tab PO BEDTIME 05/20/19 allopurinoL [Zyloprim*] 1 tab PO DAILY 05/20/19 Amiodarone HCl [Pacerone] 200 mg PO DAILY 07/09/21 Amlodipine [Norvasc] 5 mg PO DAILY 07/09/21 Aspirin [Aspirin EC 81 MG] 81 mg PO DAILY 07/09/21 Dapagliflozin Propanediol [Farxiga] 5 mg PO DAILY 07/09/21 Emmons-3S/Dha/Epa/Fish Oil [Emmons-3 Fish Oil 1,000 mg Sfgl] 1 each PO DAILY 07/09/21 Potassium Chloride [Klor-Con 10] 15 meq PO DAILY 07/09/21 Rivaroxaban [Xarelto] 20 mg PO DAILY 07/09/21 Sacubitril/Valsartan [Entresto 97 mg-103 mg Tablet] 1 tab PO DAILY 07/09/21 Review of Systems 10-point ROS is otherwise unremarkable General: Chills Respiratory: Cough, Shortness of Breath, SOB with Excertion, Sputum, Wheezing <Al Venegas - Last Filed: 07/09/21 00:10> Physical Examination - Physical Exam General: Alert, In no apparent distress HEENT: Atraumatic, PERRLA, Mucous membr. moist/pink, EOMI, Sclerae nonicteric Neck: Supple, 2+ carotid pulse no bruit, No LAD, Without JVD or thyroid abnormality Respiratory: Diminished, Crackles/rales Cardiovascular: Regular rate/rhythm, Normal S1 S2, Edema Gastrointestinal: Normal bowel sounds, No tenderness Musculoskeletal: No tenderness Integumentary: No rashes Neurological: Normal speech, Normal strength at 5/5 x4 extr, Normal tone, Normal affect Lymphatics: No axilla or inguinal lymphadenopathy - Studies Laboratory Data (last 24 hrs) 07/08/21 21:04: PT 15.1 H, INR 1.31 07/08/21 21:04: WBC 19.00 H, Hgb 14.6, Hct 46.7, Plt Count 223 07/08/21 21:04: Sodium 137, Potassium 3.6, BUN 24 H, Creatinine 1.68 H, Glucose 347 H, Magnesium 2.6 H D, Total Bilirubin 1.4 H, AST 22, ALT 41, Alkaline Phosphatase 232 H <Al Venegas - Last Filed: 07/09/21 00:10> Assessment and Plan - Problems (Diagnosis) (1) Atrial fibrillation Current Visit: Yes Status: Chronic Qualifiers: Atrial fibrillation type: unspecified Qualified Code(s): I48.91 - Unspecified atrial fibrillation (2) JEFF (obstructive sleep apnea) Current Visit: Yes Status: Chronic (3) Elevated troponin Current Visit: No Status: Acute (4) Chronic kidney disease, stage 3 Current Visit: No Status: Chronic Qualifiers: Chronic kidney disease stage 3 subtype: stage 3b (GFR 30-44) Qualified Code(s): N18.32 - Chronic kidney disease, stage 3b (5) Congestive heart failure Current Visit: No Status: Acute Qualifiers: Heart failure type: unspecified Heart failure chronicity: acute on chronic Qualified Code(s): I50.9 - Heart failure, unspecified (6) Diabetes mellitus type 2 in obese Current Visit: No Status: Chronic (7) Essential hypertension Current Visit: No Status: Chronic (8) Pneumonia Current Visit: No Status: Acute Qualifiers: Pneumonia type: due to unspecified organism Laterality: unspecified laterality Lung location: unspecified part of lung Qualified Code(s): J18.9 - Pneumonia, unspecified organism - Plan on BIPAP respiratory consulted, pulmonology consulted, cardiology consulted continue IV lasix, low sodium diet, fluid restrict, daily weights ECHO pending trend troponins, repeat EKG hydralazine PRN for BP spikes sliding scale insulin and accuchecks, A1c pending continue xarelto BID continue IV antibiotics, lactate and procalcitonin pending, blood cultures pending reconcile and continue home medications Discharge Plan: Home Plan to discharge in: 72 Hours - Advance Directives Does patient have a Living Will: No Does patient have a Durable POA for Healthcare: No - Code Status/Comfort Care Code Status Assessed: Yes (full code ) Critical Care: No Time Spent Managing Pts Care (In Minutes): 70 <Al Venegas - Last Filed: 07/09/21 00:10> - Problems (Diagnosis) (1) Atrial fibrillation Current Visit: Yes Status: Chronic Qualifiers: Atrial fibrillation type: unspecified Qualified Code(s): I48.91 - Unspecified atrial fibrillation (2) Congestive heart failure Current Visit: No Status: Acute Qualifiers: Heart failure type: unspecified Heart failure chronicity: acute on chronic Qualified Code(s): I50.9 - Heart failure, unspecified (3) Elevated troponin Current Visit: No Status: Acute (4) Chronic kidney disease, stage 3 Current Visit: No Status: Chronic Qualifiers: Chronic kidney disease stage 3 subtype: stage 3b (GFR 30-44) Qualified Code(s): N18.32 - Chronic kidney disease, stage 3b (5) Diabetes mellitus type 2 in obese Current Visit: No Status: Chronic (6) Essential hypertension Current Visit: No Status: Chronic (7) Pneumonia Current Visit: No Status: Acute Qualifiers: Pneumonia type: due to unspecified organism Lung location: unspecified part of lung <Alexis Berry - Last Filed: 07/10/21 18:25> Date of Service: 07/08/21 Subjective: Agree with HPI as mentioned above Physical Examination: Vitals: Afebrile vital signs are stable Physical exam: Cardiovascular: irregular rate rhythm Lungs: Basilar crackles Abdomen: Within normal limits Neuro: Awake, alert, oriented to person place and time Assessment: 1. Pneumonia 2. Atrial fibrillation. 3. Congestive heart failure 4. Non STEMI Plan: 1. Continue with current plan of care 1. Continue with IV antibiotics 2. Awaiting sputum and blood culture 3. Repeat chest x-ray 4. Will proceed with CT scan of the chest if pneumonia is not improved to evaluate for postobstructive pneumonia 5. Appreciate pulmonary consultation 6. Continue with nebs as needed 7. O2 per protocol 8. Continue with gentle hydration 9. Repeat labs including CBC and renal function in a.m. 10. GI and DVT prophylaxis <Alexis Berry - Last Filed: 07/10/21 18:25>
[2021-07-09] MEDS ORDERED: ACETAMINOPHEN 500 MG TAB PO PRN (10:16)
[2021-07-09] MEDS ORDERED: ONDANSETRON 4 MG/2 ML VIAL IV PRN (10:16)
[2021-07-09] MEDS ORDERED: RIVAROXABAN 15 MG TABLET PO SCH (10:16)
[2021-07-09] MEDS ORDERED: HYDRALAZINE HCL 20 MG/ML VIAL IV PRN (10:16)
[2021-07-09] MEDS: INSULIN -REGULAR HUMAN 50 UNIT/0.5 ML ML SQ SCH ×4 (10:16→21:45)
[2021-07-09] MEDS ORDERED: Levofloxacin 750mg IV 750 MG/150 ML BAG IV SCH ×2 (11:00→12:00)
[2021-07-09 11:07] LABS: Absolute Lymphocytes (CBC) 0.9 K/uL (0.7-4.9); Hematocrit 47.4 % (39.6-49.0); Lymphocytes % 6.4 % (15.3-44.8); MPV 8.9 fL (7.6-11.3); RBC Red Blood Cell Count 5.39 M/uL (4.33-5.43)
[2021-07-09 11:41] LABS: Albumin 3.3 g/dL (3.4-5.0); Bilirubin Total 1.9 mg/dL (0.2-1.0); Magnesium 2.5 mg/dL (1.8-2.4); Phosphorus 3.4 mg/dL (2.5-4.9); Protein, Total 8.2 g/dL (6.4-8.2); Thyroid Stimulating Hormone 1.23 uIU/mL (0.360-3.740)
[2021-07-09 11:43] LABS: Blood Morphology Comment NOT SEEN (NOT SEEN); Platelet Estimate ADEQ; Toxic Granulation 1+; White Blood Cell Scan OK (OK)
[2021-07-09 11:44] LABS: Troponin I 16.7 ng/mL (0.0-0.045)
[2021-07-09] MEDS ORDERED: Levofloxacin 750mg IV 750 MG/150 ML BAG IV ONE (12:20)
[2021-07-09] MEDS ORDERED: AMIODARONE HCL 150 MG in D5W 100 ML IV STA (13:30)
[2021-07-09] MEDS: FUROSEMIDE 40 MG/4 ML VIAL IV SCH ×2 (13:34→16:42)
[2021-07-09] MEDS ORDERED: FUROSEMIDE 40 MG/4 ML VIAL ONE (13:34)
[2021-07-09] MEDS ORDERED: AMIODARONE HCL 450 MG in D5W 241 ML IV SCH (14:00)
[2021-07-09] MEDS: HEPARIN/D5W 25,000 UNIT/500 ML BAG IV SCH (15:38)
[2021-07-09] MEDS: AMIODARONE HCL 900 MG in Dextrose 5%-Water 482 ML IV SCH (15:42)
--- NOTE | 2021-07-09 17:44 | CON ---
Date of Consultation: 07/09/2021 Reason For Consultation: [id number] myocardial infarction. History Of Present Illness: A 66-year-old male, presented with significant shortness of breath and o rthopnea, lower extremity edema, who was feeling 100% yesterday up until he started getting sick sudd enly with significant drop in his oxygen level, presented to the emergency room with heart failure sy mptoms, requiring high-flow oxygen and ruled in for significant [id number] myocardial infarctio n. He denies any chest pain. Past Medical History: Congestive heart failure, hypertension, diabetes, atrial fibrillation, obstruc tive sleep apnea, and CVA. Medications: Refer reconciliation sheet for detailed list. Allergies: ERYTHROMYCIN. Family History: No premature coronary artery disease or cancer. Social History: Does not smoke or drink. Does not use any drugs. Review of Systems: All systems reviewed and they were negative except for as mentioned in the HPI. Physical Examination: Vital Signs: Reviewed. Head and Neck: Pupils are equal, reactive to light. Intact eye movements. No JVD. No cervical lym phadenopathy. Neck is supple. Thyroid is not enlarged. Lungs: Crackles in both bases. No accessory muscle use or muscle retraction. Heart: Irregularly irregular. No extra sounds. Abdomen: Soft, nontender. Bowel sounds positive. No organomegaly. No masses or hernia. No rigidi ty or rebound EXTREMITIES: No clubbing or cyanosis, but 3+ edema is present. Skin: No rash. Neurologic: Alert, awake, and oriented x3. No acute focal deficits appreciated. Investigations: White blood cell count 14.7 and hemoglobin 15.4. Sodium 141, BUN is 24, and creatin ine 1.26. Troponin 16.7. Chest x-ray, CHF. Assessment And Recommendations: 1.Acute hypoxic respiratory failure due to acute congestive heart failure. Start the patient on Las ix 40 mg IV q.12 hours. Keep on high-flow oxygen and monitor vitals very closely and adjust the freq uency of Lasix based on his response. 2.Yhv-[id number] myocardial infarction. Start the patient on heparin drip per ACS protocol. Load ed with 325 mg of aspirin, then 81 mg daily and plan for coronary angiogram on Sunday. Please trend two more sets of troponin and obtain echocardiogram. 3.Atrial fibrillation. Rate is borderline elevated. We will try IV amiodarone load 150 mg over 10 minutes, then 1 mg/minute for 6 hours, and then 0.5 mg/minute for 16 hours. He can use metoprolol 5 mg IV q.4 hours as needed for rate control and discontinue Xarelto. SR/MODL Voice ID: [id number] Report ID: [id number]
[2021-07-10] MEDS: INSULIN -REGULAR HUMAN 50 UNIT/0.5 ML ML SQ SCH ×4 (07:30→20:43)
[2021-07-10] MEDS: FUROSEMIDE 40 MG/4 ML VIAL IV SCH ×2 (09:03→16:44)
[2021-07-10] MEDS: AMIODARONE HCL 900 MG in Dextrose 5%-Water 482 ML IV SCH (10:30)
[2021-07-10] MEDS: HEPARIN/D5W 25,000 UNIT/500 ML BAG IV SCH (10:31)
[2021-07-10 10:34] LABS: Absolute Lymphocytes (CBC) 0.8 K/uL (0.7-4.9); Hematocrit 44.3 % (39.6-49.0); Lymphocytes % 6.1 % (15.3-44.8); MPV 9.1 fL (7.6-11.3); RBC Red Blood Cell Count 5.04 M/uL (4.33-5.43)
[2021-07-10 10:45] LABS: Albumin 3.1 g/dL (3.4-5.0); Bilirubin Total 2.9 mg/dL (0.2-1.0); Potassium 3.4 mmol/L (3.5-5.1); Protein, Total 7.8 g/dL (6.4-8.2)
--- NOTE | 2021-07-10 18:23 | P.PN ---
Subjective Date of Service: 07/09/21 Still tachypneic and tachycardic. Continue with amiodarone drip. Dc Levaquin. Repeat chest x-ray in the morning. Review of Systems 10-point ROS is otherwise unremarkable Physical Examination - Vital Signs Temperature: 99.2 F Blood Pressure: 138/78 Pulse: 79 Respirations: 31 Pulse Ox (%): 95 - Physical Exam General: Alert, In no apparent distress Respiratory: Diminished, Rhonchi/gurgles Cardiovascular: Irregular heart rate/rhythm, Systolic murmur Gastrointestinal: Normal bowel sounds, Soft and benign, Non-distended Musculoskeletal: No clubbing, No swelling, No tenderness Integumentary: No rashes Neurological: Sensation intact, Cranial nerves 3-12 intact - Studies Medications List Reviewed: Yes Assessment & Plan - Problems (Diagnosis) (1) Atrial fibrillation Current Visit: Yes Status: Chronic Qualifiers: Atrial fibrillation type: unspecified Qualified Code(s): I48.91 - Unspecified atrial fibrillation (2) Congestive heart failure Current Visit: No Status: Acute Qualifiers: Heart failure type: unspecified Heart failure chronicity: acute on chronic Qualified Code(s): I50.9 - Heart failure, unspecified (3) Elevated troponin Current Visit: No Status: Acute (4) Chronic kidney disease, stage 3 Current Visit: No Status: Chronic Qualifiers: Chronic kidney disease stage 3 subtype: stage 3b (GFR 30-44) Qualified Code(s): N18.32 - Chronic kidney disease, stage 3b (5) Diabetes mellitus type 2 in obese Current Visit: No Status: Chronic (6) Essential hypertension Current Visit: No Status: Chronic (7) Pneumonia Current Visit: No Status: Acute Qualifiers: Pneumonia type: due to unspecified organism Lung location: unspecified part of lung - Plan 1. Continue with IV antibiotics; DC Levaquin and start Zosyn 2. Awaiting sputum and blood culture 3. Repeat chest x-ray 4. Continue with heparin drip and amiodarone drip 5. Appreciate Cardiology and pulmonary consultation 6. Continue with nebs as needed 7. O2 per protocol 8. Hep-Lock IV 9. Monitor labs closely 10. GI and DVT prophylaxis Discharge Plan: Home Plan to discharge in: Greater than 2 days - Advance Directives Does patient have a Living Will: No Does patient have a Durable POA for Healthcare: No - Code Status/Comfort Care Code Status Assessed: Yes Code Status: Full Code Critical Care: No Time Spent Managing PTS Care (In Minutes): 40
--- NOTE | 2021-07-10 18:28 | P.PN ---
Date of Service: 07/10/21 Subjective Patient clinical symptoms are improving. Rate is better controlled. Plan for cardiac catheterization in a.m.. movers to oral antiarrhythmic & anticoagulation in a.m. Review of Systems 10-point ROS is otherwise unremarkable Physical Examination - Vital Signs Reviewed - Physical Exam General: Alert, In no apparent distress Respiratory: Diminished, Rhonchi/gurgles Cardiovascular: Irregular heart rate/rhythm, Systolic murmur Gastrointestinal: Normal bowel sounds, Soft and benign, Non-distended Musculoskeletal: No clubbing, No swelling, No tenderness Neurological: Sensation intact, Cranial nerves 3-12 intact Assessment & Plan - Problems (Diagnosis) (1) Atrial fibrillation with RVR Current Visit: Yes Status: Chronic Qualifiers: Atrial fibrillation type: unspecified Qualified Code(s): I48.91 - Unspecified atrial fibrillation (2) Congestive heart failure Current Visit: No Status: Acute Qualifiers: Heart failure type: unspecified Heart failure chronicity: acute on chronic Qualified Code(s): I50.9 - Heart failure, unspecified (3) Elevated troponin Current Visit: No Status: Acute (4) Chronic kidney disease, stage 3 Current Visit: No Status: Chronic Qualifiers: Chronic kidney disease stage 3 subtype: stage 3b (GFR 30-44) Qualified Code(s): N18.32 - Chronic kidney disease, stage 3b (5) Diabetes mellitus type 2 in obese Current Visit: No Status: Chronic (6) Essential hypertension Current Visit: No Status: Chronic (7) Pneumonia Current Visit: No Status: Acute Qualifiers: Pneumonia type: due to unspecified organism Lung location: unspecified part of lung - Plan Continue with plan of care as mentioned below: 1. Continue with IV antibiotics; Continue Zosyn 2. Awaiting cultures 3. Chest x-ray in the morning 4. Continue with heparin drip and amiodarone drip 5. Appreciate Cardiology and pulmonary consultation 6. Continue with nebs as needed 7. O2 per protocol 8. Hep-Lock IV 9. Monitor labs closely 10. GI and DVT prophylaxis
--- NOTE | 2021-07-10 18:54 | PN ---
Date of Progress Note: 07/10/2021 Subjective: Seen by bedside. No further chest pain. Breathing much better. Heart rate is controll ed. Review of Systems: No chest pain. No shortness of breath is present. No nausea, vomiting, or diarrhea. No dysuria, po lyuria, or urinary urgency. All other systems reviewed and are negative. Physical Examination: Vital Signs: Temperature is 98.4, pulse 79, breathing at 19, blood pressure 127/75, saturating 93% w ith oxygen. General: Pleasant middle-aged male, in no distress. HEENT: Pupils are equal, reactive to light. Intact eye movements. No JVD. No cervical lymphadenop athy. Neck: Supple. Thyroid is not enlarged. Lungs: Clear to auscultation bilaterally. No rhonchi, rales, or crackles. No accessory muscle use. Heart: Regular rate and rhythm. No extra sounds. Abdomen: Soft, nontender. Bowel sounds positive. No organomegaly. No tenderness to rebound. Extremities: No clubbing, cyanosis. Intact pulses. Mild edema present bilaterally. Neurologic: Alert, awake, oriented x3. No deficit appreciated. Investigations: White blood cell count is 12.7, hemoglobin 14.3. The sodium 141, BUN 27, creatinine 1.34. Troponin down to 9.38. Assessment And Recommendation: 1.Lad-XY-mmxoqjwiy myocardial infarction. Troponin is trending down. Obtain echocardiogram tomorro w. Keep n.p.o. past midnight for coronary angiogram in the morning. Continue aspirin and heparin fo r the night. 2.Acute congestive heart failure. I will hold the Lasix this evening due to a mild rise in his creatinine and re-evaluate labs in the morning and obtain echocardiogram in the morning. SR/MODL Voice ID: [id number] Report ID: [id number]
[2021-07-10] MEDS ORDERED: D5W 1,000 ML with NA BICARB 8.4% 50 MEQ IV SCH ×2 (19:00)
[2021-07-11] MEDS: PIPER TAZO 3.375 GM in NA CHLORIDE 0.9% 100 ML IV SCH ×2 (00:06→10:45)
[2021-07-11 02:13] LABS: Absolute Lymphocytes (CBC) 0.7 K/uL (0.7-4.9); Hematocrit 37.7 % (39.6-49.0); Lymphocytes % 6.3 % (15.3-44.8); RBC Red Blood Cell Count 4.34 M/uL (4.33-5.43)
[2021-07-11 02:44] LABS: Magnesium 2.3 mg/dL (1.8-2.4); Phosphorus 3.6 mg/dL (2.5-4.9)
[2021-07-11 02:48] LABS: Albumin 2.4 g/dL (3.4-5.0); Bilirubin Total 2.4 mg/dL (0.2-1.0); Protein, Total 6.4 g/dL (6.4-8.2)
[2021-07-11] MEDS ORDERED: NA CHLORIDE 0.9% 1,000 ML ONE (05:29)
[2021-07-11] MEDS: HEPARIN/D5W 25,000 UNIT/500 ML BAG IV SCH (05:33)
[2021-07-11] MEDS ORDERED: NA CHLORIDE 0.9% 1,000 ML IV SCH (06:00)
[2021-07-11] MEDS ORDERED: KCL 20 MEQ/100 mL IVPB 100 ML IV ONE (06:11)
--- NOTE | 2021-07-11 06:15 | P.PN ---
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 Patient with LAD stenosis and diagonal stenosis. Cardiology to finish heart catheterization with stents) Physical Examination - Vital Signs Temperature: 98 F Blood Pressure: 131/89 Pulse: 78 Respirations: 25 Pulse Ox (%): 96 - Studies Medications List Reviewed: Yes Assessment & Plan Discharge Plan: Home Plan to discharge in: 24 Hours Physician Review Additional Text: COVID: Negative Physical exam: General: Alert, In no apparent distress Respiratory: Clear Cardiovascular: A fib rate controlled. Gastrointestinal: Normal bowel sounds, Soft and benign, Non-distended Musculoskeletal: No clubbing, No swelling, No tenderness Neurological: Sensation intact, Cranial nerves 3-12 intact Impression: Atrial fibrillation with RVR Acute on chronic systolic CHF Elevated troponin secondary to NSTEMI status post heart catheterization Chronic renal disease stage III Diabetes mellitus type 2 Hypertension Pneumonia Hyperlipidemia Plan: Atrial fibrillation with RVR: Patient remained stable. Currently on IV amiodarone and heparin drip. Heart catheterization being performed. Patient with LAD stenosis and diagonal stenosis. Cardiology to finish heart catheterization. Stents are planned. Await further recommendations from cardiology. Consider switching from IV amiodarone to oral and to his Xarelto medication. Await further recommendations from cardiology. Likely home in the next 24 to 48 hours. Acute on chronic systolic CHF: Continue IV Lasix 40 mg twice daily. Continue monitor closely. Echocardiogram to be obtained. Previously on Entresto/Lasix. Continue to hold oral medication. Await recommendations from cardiology. Elevated troponin secondary to NSTEMI status post heart catheterization: Heart catheterization being performed. Chronic renal disease stage III: Patient currently on D5W. Monitor renal function closely. Patient appears to be at his baseline. Diabetes mellitus type 2: Continue Accu-Cheks and sliding scale. Hypertension: IV hydralazine in place. Previously on Norvasc/eplerenone, continue to hold. Will discuss with cardiology Pneumonia: Continue IV Zosyn. We will recheck chest x-ray today. Hyperlipidemia: Restart Lipitor 20 mg daily. DVT prophylaxis: Heparin drip CODE STATUS: Full code Advance care [id number] minutes: Home at discharge. Anticipate home in the next 24 to 48 hours. Time Spent Managing Pts Care (In Minutes): 55
[2021-07-11] MEDS: KCL 20 MEQ/100 mL IVPB 20 MEQ/100 ML BAG IV SCH ×2 (06:16→08:30)
[2021-07-11] MEDS ORDERED: LIDOCAINE 1% 20 ML MDV ONE (06:25)
[2021-07-11] MEDS ORDERED: HEPA 1000U/500MLS 2,000 UNIT/1,000 ML BAG IV ONE (06:25)
[2021-07-11] MEDS ORDERED: FENTANYL CITR 100 MCG/2 ML ONE (07:15)
[2021-07-11] MEDS ORDERED: MIDAZOLAM HCL 2 MG/2 ML INJ ONE (07:15)
[2021-07-11] MEDS ORDERED: NITROGLYCERIN/D5W 25 MG/250 ML BTL IV ONE (07:16)
[2021-07-11] MEDS ORDERED: NITROGLYCERIN 100 MCG/ML SYR (for cath lab use only) IV ONE (07:16)
[2021-07-11] MEDS ORDERED: ATROPINE SULF 1 MG/10 ML SYR IV ONE (07:16)
[2021-07-11] MEDS ORDERED: HEPARIN 5000 UNIT/ML 1 ML VIAL ONE (07:16)
[2021-07-11] MEDS ORDERED: VERAPAMIL HCL 10 MG/4 ML VIAL IV ONE (07:16)
[2021-07-11] MEDS: INSULIN -REGULAR HUMAN 50 UNIT/0.5 ML ML SQ SCH ×4 (07:30→20:10)
[2021-07-11] MEDS ORDERED: HEPA 1000U/500MLS 1,000 UNIT/500 ML BAG IV ONE (07:49)
[2021-07-11] MEDS ORDERED: TICAGRELOR 90 MG TABLET PO ONE ×2 (07:53→08:04)
[2021-07-11] MEDS ORDERED: ASPIRIN 325 MG TAB ONE (07:53)
[2021-07-11] MEDS ORDERED: FUROSEMIDE 20 MG/ 2ML VIAL ONE (08:41)
[2021-07-11] MEDS: ASPIRIN EC 81 MG TAB PO SCH (09:00)
[2021-07-11] MEDS: APIXABAN 2.5 MG TABLET PO SCH ×2 (09:00→20:10)
[2021-07-11] MEDS: FUROSEMIDE 40 MG/4 ML VIAL IV SCH ×3 (09:00→18:03)
[2021-07-11] MEDS ORDERED: TICAGRELOR 90 MG TABLET PO SCH (09:00)
[2021-07-11] MEDS: allopurinoL 300 MG TAB PO SCH (09:00)
[2021-07-11 10:04] LABS: Arterial Blood Carboxyhemoglob 1.8 % (0-1.5); Blood Gas Oxyhemoglobin 90.9 % (94-97); Blood O2 Saturation 93.4 % (92-98.5)
--- NOTE | 2021-07-11 12:06 | P.CNS ---
Date of Consult: 07/11/21 Reason for Consult: Respiratory failure Chief Complaint: chf exacerbation History of Present Illness: Patient is 66 years of age s/p 2 stents placed developed some respiratory distress is doing well right now currently on BiPAP alert patient has a history of sleep apnea uses CPAP at home Allergies erythromycin base Adverse Reaction (Verified 05/19/19 23:08) upset stomach Home Medications: Atorvastatin Calcium [Lipitor*] 1 tab PO BEDTIME 05/20/19 Eplerenone 1 tab PO DAILY 05/20/19 Furosemide 1 tab PO DAILY 05/20/19 Metformin ER [Glucophage ER*] 1 tab PO BEDTIME 05/20/19 allopurinoL [Zyloprim*] 1 tab PO DAILY 05/20/19 Amiodarone HCl [Pacerone] 200 mg PO DAILY 07/09/21 Amlodipine [Norvasc] 5 mg PO DAILY 07/09/21 Aspirin [Aspirin EC 81 MG] 81 mg PO DAILY 07/09/21 Dapagliflozin Propanediol [Farxiga] 5 mg PO DAILY 07/09/21 [place]te-3S/Dha/Epa/Fish Oil [[place]-3 Fish Oil 1,000 mg Sfgl] 1 each PO DAILY 07/09/21 Potassium Chloride [Klor-Con 10] 15 meq PO DAILY 07/09/21 Rivaroxaban [Xarelto] 20 mg PO DAILY 07/09/21 Sacubitril/Valsartan [Entresto 97 mg-103 mg Tablet] 1 tab PO DAILY 07/09/21 - Past Medical/Surgical History Diabetic: Yes -: Hypertension -: Diabetes mellitus type 2 -: Congestive heart failure -: CVA 2017 -: Gout -: sleep apnea -: atrial fibrillation on xarelto -: appendectomy - Family History Mother Medical History: Heart disease Notes: hep C Father Medical History: Hypertension - Social History Smoking Status: Unknown if ever smoked Alcohol use: Yes CD- Drugs: No Caffeine use: No Place of Residence: Home Review of Systems 10-point ROS is otherwise unremarkable Physical Examination Temp Pulse Resp BP Pulse Ox 98 F 78 25 H 131/89 96 07/11/21 08:21 07/11/21 08:21 07/11/21 08:21 07/11/21 08:21 07/11/21 08:21 General: Alert, Oriented x3 Neck: Supple Respiratory: Clear to auscultation bilaterally Cardiovascular: No edema, Normal S1 S2 Gastrointestinal: Normal bowel sounds, Soft and benign - Problems (1) Respiratory failure Current Visit: Yes Status: Acute Plan: Patient is 66 years of age developed respiratory distress after inserting 2 stents is currently doing better at rate of BiPAP use regular high flow nasal cannula oxygen to bring his CPAP from home history of sleep apnea labs reviewed chest x-ray on admission shows asymmetric opacification double right lower lobe consolidation or pneumonia may be aspiration currently on Zosyn patient's white count was elevated patient is currently hemodynamically stable DC Zosyn mold insert changer to p.o. levofloxacin repeat another x-ray patient's troponin was very elevated on admission he is on Lasix echocardiogram done Qualifiers: Chronicity: acute
[2021-07-11] MEDS: AMIODARONE HCL 200 MG TAB PO SCH ×2 (12:12→20:09)
[2021-07-11] MEDS ORDERED: POTASSIUM CL SA 10 MEQ TAB PO ONE ×2 (13:00→21:23)
[2021-07-11] MEDS ORDERED: LIDOCAINE 1% MPF 5 ML VIAL ONE (13:21)
[2021-07-11] MEDS: levoFLOXacin 750 MG TAB PO SCH (13:27)
--- NOTE | 2021-07-11 14:09 | RAD REPORT ---
EXAM DESCRIPTION: RAD - Chest Single View - 07/11/2021 1:57 pm CLINICAL HISTORY: follow up pneumonia Chest pain. COMPARISON: Chest Single View dated 07/08/2021; Chest Pa And Lat (2 Views) dated 11/20/2020; Chest Si ngle View dated 05/19/2019; Chest Pa And Lat (2 Views) dated 06/07/2018 FINDINGS: Portable technique limits examination quality. Extensive bilateral pulmonary opacities are again seen, slightly improved in the right base but mildl y worsened in the left upper lobe. The heart is significantly enlarged. No displaced fractures.
--- NOTE | 2021-07-11 15:00 | PN ---
Date of Progress Note: 07/11/2021 Subjective: Seen by bedside, status post PCI of the LAD and diagonal 1 branch. Had respiratory dist ress at the end of procedure, now on BiPAP stable. No chest pain. Review of Systems: No chest pain. Shortness of breath minimal. No nausea, vomiting, diarrhea. No history of urinary u rgency. All other systems reviewed and are negative. Physical Examination: Vital Signs: Reviewed. Head and Neck: Pupils are equal, reactive to light. Intact eye movements. Mild JVD elevation. Neck: Supple. Thyroid is not enlarged. Lungs: Clear to auscultation bilaterally. No rhonchi, rales, or crackles. No accessory muscle use. Heart: Irregularly irregular. No extra sounds. Abdomen: Soft, nontender. Bowel sounds positive. No organomegaly. No masses or hernia. No rigidi ty or rebound. Extremities: No edema, clubbing, or cyanosis. Intact pulses. Skin: No rashes. Neurologic: Alert, awake, oriented x3. No acute focal deficits appreciated. Investigations: Labs were reviewed. Assessment And Recommendations: 1.Non-ST elevation myocardial infarction, status post PCI of LAD and diagonal 1 branch, likely diago nal branch is a culprit. We will put him on Brilinta. Continue that 90 mg q.12 hours, aspirin 81 mg daily, high-dose statin, Lipitor 80 mg daily at bedtime. The patient has severe right PDA stenosis. This will be staged once he is more stable from respiratory standpoint. We will plan for staged PC I of the PDA. 2.Atrial fibrillation. Rate is controlled. Switch to oral amiodarone 200 mg twice a day, low-dose of Eliquis 2.5 mg twice a day. He will be on triple therapy for a month and then after a month, we w ill discontinue the aspirin and put him on only Eliquis full dose 5 mg twice a day and Plavix at that time. I will consider left atrial appendage closure as an outpatient on him. 3.Acute hypoxic respiratory failure due to congestive heart failure. Await on echocardiogram. SR/MODL Voice ID: [id number] Report ID: [id number]
--- NOTE | 2021-07-11 16:45 | OP ---
Date of Procedure: 07/11/2021 Surgeon: GRISEL PALACIO Procedures Performed: 1.Selective coronary angiogram. 2.Left heart catheterization. 3.PCI of severe proximal LAD stenosis using a 4.0 x 24 mm Synergy drug-eluting stent deployed to hig h pressure size of 4.5 mm. 4.PCI of diagonal mid diagonal branch stenosis 99%, likely the culprit for the NH. I used 3.0 x 24 mm Synergy drug-eluting stent. Indication: Non-ST elevation myocardial infarction. Access: Right radial artery 6-[place] closed with TR band. Complications: None. Bleeding: Less than 10 mL. Anesthesia: Total sedation time was 75 minutes. Description Of Procedure: After risks, benefits, and alternatives were explained, the patient agreed to the procedure and signed informed consent. The patient was brought into the cardiac catheterizat ion laboratory, prepped and draped in usual sterile fashion. Then, I accessed right radial artery us ing pediatric micropuncture kit and placed a 6-[place] Slender sheath and took 5-[place] 4.0 cath eter into the aortic root, engaged the left main and right coronary artery, took standard views, and the catheter was pushed over the wire into the LV, took LVEDP and pullback did not record any gradien t. Then, we gave systemic heparin, Brilinta 180 and aspirin 325. Took EBU 3.5 guide 6-[place] into t he aortic root, engaged the left main and took 2 short Run-Through wires, 1 into the diagonal branch and 1 into the LAD and placed in the distal portion. Then, the LAD lesion was pre-dilated successfully and the diagonal branch lesion pre-dilated successfully and then I placed a 3.0 x 24 mm Synergy drug-eluting stent across the stenosis of the diagonal branch and then placed a 4.0 x 24 mm Synergy drug-eluting stent off the proximal LAD, inflated to high pressure to a size of 4.5 mm. Then , I took the sheath out after satisfactory angiogram, took the guide out and then a sheath was remove d and placed TR band with good hemostasis. Findings: 1.Left main is large and normal. 2.LAD; proximal 80% to 90% stenosis, possible culprit for the NH, status post successful PCI as abov e, diagonal 1 branch is a very large vessel. Mid 99% stenosis is probably the culprit of the NH, sta tus post successful PCI as outlined above. The rest of the LAD looks good. 3.Left circumflex; nondominant, moderate size. OM1 branch has proximal 40% to 50% stenosis. 4.RCA; large, dominant with diffuse 30% stenosis proximally and mid 30% stenosis and the PDA has a m id 90% stenosis, which will be staged at a later time. 5.LVEDP elevated at 22 mmHg. Conclusion: 1.Severe LAD and diagonal 1 branch, likely the culprit for NH, status post successful PCI of both. 2.Moderate coronary artery disease of the left circumflex and the RCA and severe coronary artery dis ease of the right PDA that will be staged at a later time once the patient is more stable hemodynamic ally clinically. Plan: 1.Continue Brilinta, aspirin, and high-dose statin. 2.Plan for staged PCI of the right PDA in 4-6 weeks, at which time, we will do IVUS of the LAD and t he diagonal stent and post dilate further if needed. /HALLEYL Voice ID: [id number] Report ID: [id number]
[2021-07-11] MEDS ORDERED: D5W 1,000 ML with NA BICARB 8.4% 50 MEQ IV SCH ×2 (19:00)
[2021-07-11] MEDS: ATORVASTATIN 20 MG TAB PO SCH (20:09)
[2021-07-11] MEDS: TICAGRELOR 90 MG TABLET PO SCH (20:10)
[2021-07-11] MEDS ORDERED: AMIODARONE HCL 200 MG TAB PO SCH (21:00)
[2021-07-11] MEDS ORDERED: LORAZEPAM 1 MG TABLET PO ONE (21:32)
[2021-07-12 05:33] LABS: Absolute Lymphocytes (CBC) 0.7 K/uL (0.7-4.9); Hematocrit 37.6 % (39.6-49.0); Lymphocytes % 5.9 % (15.3-44.8); MPV 8.7 fL (7.6-11.3); RBC Red Blood Cell Count 4.32 M/uL (4.33-5.43)
[2021-07-12 05:41] LABS: Magnesium 2.4 mg/dL (1.8-2.4); Phosphorus 3.2 mg/dL (2.5-4.9); Potassium 3.3 mmol/L (3.5-5.1)
--- NOTE | 2021-07-12 06:01 | P.PN ---
Subjective Date of Service: 07/12/21 Chief Complaint: chf exacerbation Subjective: Improving (on CPAP from home) Physical Examination - Vital Signs Temperature: 98.5 F Blood Pressure: 98/50 Pulse: 78 Respirations: 27 Pulse Ox (%): 91 - Studies Medications List Reviewed: Yes Assessment & Plan Discharge Plan: Home Plan to discharge in: Greater than 2 days Physician Review Additional Text: COVID: Negative Heart cath: Date of Procedure: 07/11/2021 Surgeon: GRISEL PALACIO Procedures Performed: 1. Selective coronary angiogram. 2. Left heart catheterization. 3. PCI of severe proximal LAD stenosis using a 4.0 x 24 mm Synergy drug- eluting stent deployed to high pressure size of 4.5 mm. 4. PCI of diagonal mid diagonal branch stenosis 99%, likely the culprit for the [place]. I used 3.0 x 24 mm Synergy drug-eluting stent. Indication: Non-ST elevation myocardial infarction. Access: Right radial artery 6-[place] closed with TR band. Complications: None. Bleeding: Less than 10 mL. Follow up CXR 07/12/2021: COMPARISON: July 11, 2020 FINDINGS: Mild worsening in the right and mild improvement in left pulmonary opacities which are extensive. Heart remains enlarged IMPRESSION: Extensive bilateral pulmonary opacities as described above represent pulmonary edema or pneumonia Physical exam: General: Alert, In no apparent distress Respiratory: Slightly decreased at the bases. Currently on CPAP. Cardiovascular: A. fib rate controlled Gastrointestinal: Normal bowel sounds, Soft and benign, Non-distended Musculoskeletal: No clubbing, No swelling, No tenderness. No edema to the lower extremities Neurological: Sensation intact, Cranial nerves 3-12 intact Impression: Atrial fibrillation with RVR Acute on chronic systolic CHF Elevated troponin secondary to NSTEMI status post heart catheterization with stents placed to severe proximal LAD stenosis and mid diagonal branch stenosis Chronic renal disease stage III Diabetes mellitus type 2 Hypertension Pneumonia Hyperlipidemia Obstructive sleep apnea Plan: Atrial fibrillation with RVR: Patient had a heart catheterization yesterday. Patient doing better. Chest x-ray still shows pulmonary edema. Continue IV Lasix. Fluid restriction in place. Continue to wean off oxygen. Stents placed to the proximal LAD and mid diagonal branch. Patient now on oral amiodarone 200 mg 1 pill twice daily, Eliquis 2.5 mg 1 pill twice daily, Lipitor 20 mg daily, and Brilinta 90 mg 1 pill twice daily. Continue discussed with cardiology. Anticipate improvement over the next 2 to 3 days. Acute on chronic systolic CHF: Chest x-ray still shows pulmonary edema. Continue fluid restriction. Continue IV Lasix 40 mg twice daily. Continue monitor closely. Echocardiogram to be obtained. Previously on Entresto/Lasix. Continue to hold oral medication. Await recommendations from cardiology. Elevated troponin secondary to NSTEMI status post heart catheterization with stents placed to severe proximal LAD stenosis and mid diagonal branch stenosis: Stents placed to the LAD and diagonal branch. Continue with Brilinta 90 mg 1 pill twice daily and Lipitor 20 mg daily. Continue with above plan of care. Chronic renal disease stage III: Hep-Lock IV. Monitor renal function closely. Patient appears to be at his baseline. Diabetes mellitus type 2: Continue Accu-Cheks and sliding scale. Hypertension: Blood pressure stable off medication. IV hydralazine in place. Previously on Norvasc/eplerenone, continue to hold both medication. Will discuss with cardiology Pneumonia: Spoke with cardiology and pulmonology. Patient on Levaquin. Continue to monitor closely. Wean off oxygen. Hyperlipidemia: Continue Lipitor 20 mg daily. Obstructive sleep apnea: Continue with CPAP at night DVT prophylaxis: Eliquis CODE STATUS: Full code Advance care [id number] minutes: Home at discharge. Anticipate home in the next 2 to 3 days Time Spent Managing Pts Care (In Minutes): 55
[2021-07-12] MEDS: PANTOPRAZOLE 40MG TABLET PO SCH (06:22)
[2021-07-12] MEDS ORDERED: POTASSIUM CL SA 10 MEQ TAB PO ONE (07:00)
[2021-07-12] MEDS: INSULIN -REGULAR HUMAN 50 UNIT/0.5 ML ML SQ SCH ×4 (07:30→21:54)
--- NOTE | 2021-07-12 08:02 | RAD REPORT ---
EXAM DESCRIPTION: Romulo Single View07/12/2021 6:36 am CLINICAL HISTORY: Respiratory failure COMPARISON: July 11, 2020 FINDINGS: Mild worsening in the right and mild improvement in left pulmonary opacities which are ext ensive. Heart remains enlarged IMPRESSION: Extensive bilateral pulmonary opacities as described above represent pulmonary edema or pneumonia
[2021-07-12] MEDS: FUROSEMIDE 40 MG/4 ML VIAL IV SCH ×2 (09:19→18:00)
[2021-07-12] MEDS: ASPIRIN EC 81 MG TAB PO SCH (09:20)
[2021-07-12] MEDS: APIXABAN 2.5 MG TABLET PO SCH ×2 (09:20→21:05)
[2021-07-12] MEDS: AMIODARONE HCL 200 MG TAB PO SCH ×2 (09:20→21:05)
[2021-07-12] MEDS: TICAGRELOR 90 MG TABLET PO SCH ×2 (09:20→21:05)
[2021-07-12] MEDS: allopurinoL 300 MG TAB PO SCH (09:20)
--- NOTE | 2021-07-12 10:18 | ECHO ---
HEIGHT: 5 ft 10 in WEIGHT: 254 lb 11.2 oz DATE OF STUDY: 07/11/[address]: Al Venegas 2-DIMENSIONAL: YES M.MODE: YES DOPPLER: YES COLOR FLOW: YES TDS: PORTABLE: YES DEFINITY: BUBBLE STUDY: DIAGNOSIS: CONGESTIVE HEART FAILURE CARDIAC HISTORY: CATHERIZATION: SURGERY: PROSTHETIC VALVE: PACEMAKER: MEASUREMENTS (cm) DIASTOLIC (NORMALS) SYSTOLIC (NORMALS) IVSd 1.2 (0.6-1.2) LA Diam 4.5 (1.9-4.0) LVEF 30-35% LVIDd 5.6 (3.5-5.7) LVIDs 5.1 (2.0-3.5) %FS 9% LVPWd 1.2 (0.6-1.2) Ao Diam 2.9 (2.0-3.7) 2 DIMENSIONAL ASSESSMENT: RIGHT ATRIUM: NORMAL LEFT ATRIUM: ENLARGED RIGHT VENTRICLE: NORMAL LEFT VENTRICLE: DEPRESSED LEFT VENTRICULAR EJECTION FRACTION TRICUSPID VALVE: NORMAL MITRAL VALVE: MILD MITRAL REGURGITATION PULMONIC VALVE: NORMAL AORTIC VALVE: NORMAL PERICARDIAL EFFUSION: NONE AORTIC ROOT: NORMAL LEFT VENTRICULAR WALL MOTION: GLOBAL MODERATE HYPOKINESIS DOPPLER/COLOR FLOW: MILD MITRAL REGURGITATION COMMENTS: MODERATELY DEPRESSED LEFT VENTRICULAR EJECTION FRACTION 30-35% WITH MODERATE GLOBAL HYPOKINESIS. MILD MITRAL REGURGITATION. ELEVATED FILLING PRESSURE WITH RIGHT ATRIAL PRESSURE LESS THAN 20 mmHg. LEFT ATRIAL ENLARGEMENT. ATRIAL FIBRILLATION. TECHNOLOGIST: MACKENZIE SAAB
--- NOTE | 2021-07-12 19:51 | PN ---
Date of Progress Note: 07/12/2021 Mr. Waller underwent an angioplasty and stent by Dr. Garcia of his LAD and diagonal. He still has a PDA that needs to be done and Dr. Garcia planned to do that as an outpatient. He has improved overnight , but still have significant congestive heart failure. He remains on BiPAP with adequate O2 saturati on. He remained in sinus rhythm, afebrile. His chest is clear. His medications are appropriate. W e will continue present regimen. Plan for intervention later on this week, may be or Sunday . I have discussed the case further with Dr. Kidd and with Dr. Marshall and with Dr. Garcia. Continue present regimen for now. KAT/MODL Voice ID: [id number] Report ID: [id number]
[2021-07-12] MEDS: ATORVASTATIN 20 MG TAB PO SCH (21:05)
[2021-07-13 04:59] LABS: Absolute Lymphocytes (CBC) 0.7 K/uL (0.7-4.9); Hematocrit 37.2 % (39.6-49.0); MPV 8.6 fL (7.6-11.3); RBC Red Blood Cell Count 4.27 M/uL (4.33-5.43)
[2021-07-13 05:16] LABS: Magnesium 2.2 mg/dL (1.8-2.4); Potassium 3.2 mmol/L (3.5-5.1)
[2021-07-13] MEDS: PANTOPRAZOLE 40MG TABLET PO SCH (05:23)
--- NOTE | 2021-07-13 05:57 | P.PN ---
Subjective Date of Service: 07/13/21 Primary Care Provider: Unknown Chief Complaint: chf exacerbation Subjective: Improving Physical Examination - Vital Signs Temperature: 97.2 F Blood Pressure: 134/96 Pulse: 75 Respirations: 25 Pulse Ox (%): 95 - Studies Medications List Reviewed: Yes Assessment & Plan Discharge Plan: Home Plan to discharge in: Greater than 2 days Physician Review Additional Text: COVID: Negative Heart cath: Date of Procedure: 07/11/2021 Surgeon: GRISEL PALACIO Procedures Performed: 1. Selective coronary angiogram. 2. Left heart catheterization. 3. PCI of severe proximal LAD stenosis using a 4.0 x 24 mm Synergy drug- eluting stent deployed to high pressure size of 4.5 mm. 4. PCI of diagonal mid diagonal branch stenosis 99%, likely the culprit for the NV. I used 3.0 x 24 mm Synergy drug-eluting stent. Indication: Non-ST elevation myocardial infarction. Access: Right radial artery 6-Iraqi closed with TR band. Complications: None. Bleeding: Less than 10 mL. Anesthesia: Total sedation time was 75 minutes. Findings: 1. Left main is large and normal. 2. LAD; proximal 80% to 90% stenosis, possible culprit for the NV, status post successful PCI as above, diagonal 1 branch is a very large vessel. Mid 99% stenosis is probably the culprit of the NV, status post successful PCI as outlin ed above. The rest of the LAD looks good. 3. Left circumflex; nondominant, moderate size. OM1 branch has proximal 40% to 50% stenosis. 4. RCA; large, dominant with diffuse 30% stenosis proximally and mid 30% stenosis and the PDA has a mid 90% stenosis, which will be staged at a later time. 5. LVEDP elevated at 22 mmHg. Conclusion: 1. Severe LAD and diagonal 1 branch, likely the culprit for NV, status post successful PCI of both. 2. Moderate coronary artery disease of the left circumflex and the RCA and severe coronary artery disease of the right PDA that will be staged at a later time once the patient is more stable hemodynamically clinically. Plan: 1. Continue Brilinta, aspirin, and high-dose statin. 2. Plan for staged PCI of the right PDA in 4-6 weeks, at which time, we will do IVUS of the LAD and the diagonal stent and post dilate further if needed. Initial ECHO: MEASUREMENTS (cm) DIASTOLIC (NORMALS) SYSTOLIC (NORMALS) IVSd 1.2 (0.6-1.2) LA Diam 4.5 (1.9-4.0) LVEF 30-35% LVIDd 5.6 (3.5-5.7) LVIDs 5.1 (2.0-3.5) %FS 9% LVPWd 1.2 (0.6-1.2) Ao Diam 2.9 (2.0-3.7) 2 DIMENSIONAL ASSESSMENT: RIGHT ATRIUM: NORMAL LEFT ATRIUM: ENLARGED RIGHT VENTRICLE: NORMAL LEFT VENTRICLE: DEPRESSED LEFT VENTRICULAR EJECTION FRACTION TRICUSPID VALVE: NORMAL MITRAL VALVE: MILD MITRAL REGURGITATION PULMONIC VALVE: NORMAL AORTIC VALVE: NORMAL PERICARDIAL EFFUSION: NONE AORTIC ROOT: NORMAL LEFT VENTRICULAR WALL MOTION: GLOBAL MODERATE HYPOKINESIS DOPPLER/COLOR FLOW: MILD MITRAL REGURGITATION COMMENTS: MODERATELY DEPRESSED LEFT VENTRICULAR EJECTION FRACTION 30-35% WITH MODERATE GLOBAL HYPOKINESIS. MILD MITRAL REGURGITATION. ELEVATED FILLING PRESSURE WITH RIGHT ATRIAL PRESSURE LESS THAN 20 mmHg. LEFT ATRIAL ENLARGEMENT. ATRIAL FIBRILLATION. Post Heart cath ECHO: DIAGNOSIS: RECHECK ECHOCARDIOGRAM POST CATH PER CARDIOLODY CARDIAC HISTORY: CATHERIZATION: SURGERY: PROSTHETIC VALVE: PACEMAKER: MEASUREMENTS (cm) DIASTOLIC (NORMALS) SYSTOLIC (NORMALS) IVSd 1.2 (0.6-1.2) LA Diam 4.7 (1.9-4.0) LVEF 26% LVIDd 4.9 (3.5-5.7) LVIDs 4.3 (2.0-3.5) %FS 12% LVPWd 1.2 (0.6-1.2) Ao Diam 2.6 (2.0-3.7) 2 DIMENSIONAL ASSESSMENT: RIGHT ATRIUM: NORMAL LEFT ATRIUM: NORMAL RIGHT VENTRICLE: NORMAL LEFT VENTRICLE: NORMAL TRICUSPID VALVE: NORMAL MITRAL VALVE: NORMAL SIZE PULMONIC VALVE: NORMAL AORTIC VALVE: NORMAL PERICARDIAL EFFUSION: NONE AORTIC ROOT: NORMAL LEFT VENTRICULAR WALL MOTION: SEVERE GLOBAL HYPOKINESIS DOPPLER/COLOR FLOW: NORMAL COMMENTS: SEVERE GLOBAL HYPOKINESIS. EJECTION FRACTION 26%. NO EFFUSION. Follow up CXR 07/13/2021: COMPARISON: Chest Single View dated 07/12/2021; Chest Single View dated 07/11/2021; Chest Single View dated 07/08/2021; Chest Pa And Lat (2 Views) dated 11/20/2020 FINDINGS: Lines: None. Lungs: Unchanged widespread bilateral airspace opacities. Pleural: No significant pleural effusions or pneumothorax. Cardiac: Cardiomegaly. Bones: No acute fractures. IMPRESSION: No significant change in widespread bilateral airspace disease that may reflect multifocal pneumonia and/or edema. Physical exam: General: Alert, In no apparent distress Respiratory: Slightly decreased at the bases. Currently on CPAP. Cardiovascular: A. fib rate controlled Gastrointestinal: Normal bowel sounds, Soft and benign, Non-distended Musculoskeletal: No clubbing, No swelling, No tenderness. No edema to the lower extremities Neurological: Sensation intact, Cranial nerves 3-12 intact Impression: Atrial fibrillation with RVR on chronic anticoagulation therapy Acute on chronic systolic CHF with ejection fraction 26% Elevated troponin secondary to NSTEMI status post heart catheterization with stents placed to severe proximal LAD stenosis and mid diagonal branch stenosis Chronic renal disease stage III with Hypernatremia Diabetes mellitus type 2 Hypertension Pneumonia Hyperlipidemia Obstructive sleep apnea Gout Plan: Atrial fibrillation with RVR on chronic anticoagulation therapy: Patient status post heart catheterization. Doing better. Continue diuresis. Patient on IV Lasix 40 mg twice daily. Spoke with cardiology and nephrology. Nephrology plans to give Aldactone. Continue 1500 cc/day fluid restriction. Metoprolol added for better blood pressure control. Patient remains on amiodarone 200 mg 1 pill twice daily, Eliquis 2.5 mg 1 pill twice daily, Lipitor 20 mg daily, and Brilinta 90 mg 1 pill twice daily. Continue to wean off oxygen. Anticipate continued improvement. Acute on chronic systolic CHF EF 26%: Repeat echocardiogram shows ejection fraction 26%. Continue IV Lasix 40 mg 1 pill twice daily. Nephrology added Aldactone. Continue with current medication Elevated troponin secondary to NSTEMI status post heart catheterization showing severe CAD with stents placed to severe proximal LAD stenosis and mid diagonal branch stenosis: Patient with severe disease. Continue aspirin, Brilinta, statin medication. Planned future heart catheterization for right PDA in about 4 to 6 weeks. Cardiology plans for IVUS of the LAD and diagonal stent in the future. Chronic renal disease stage III with Hypernatremia: Patient given D5W to correct hypernatremia. Case discussed with nephrology. Will discontinue D5W. Nephrology plans to add Aldactone which should help with hypernatremia. Diabetes mellitus type 2: Continue Accu-Cheks and sliding scale. Hypertension: Blood pressure still elevated. Nephrology added metoprolol for better control. Continue to adjust medication Pneumonia: Patient on Levaquin. Continue to monitor closely. Wean off oxygen. Hyperlipidemia: Continue Lipitor 20 mg daily. Obstructive sleep apnea: Continue with CPAP at night Gout: Continue allopurinol DVT prophylaxis: Eliquis CODE STATUS: Full code Advance care [id number] minutes: Home at discharge. Anticipate home in the next 2 to 3 days Time Spent Managing Pts Care (In Minutes): 55
[2021-07-13] MEDS ORDERED: D5W 500 ML IV SCH (06:00)
[2021-07-13] MEDS: INSULIN -REGULAR HUMAN 50 UNIT/0.5 ML ML SQ SCH ×4 (07:15→20:27)
--- NOTE | 2021-07-13 07:40 | RAD REPORT ---
EXAM DESCRIPTION: RAD - Chest Single View - 07/13/2021 5:23 am CLINICAL HISTORY: Follow up CHF COMPARISON: Chest Single View dated 07/12/2021; Chest Single View dated 07/11/2021; Chest Single View da elaine 07/08/2021; Chest Pa And Lat (2 Views) dated 11/20/2020 FINDINGS: Lines: None. Lungs: Unchanged widespread bilateral airspace opacities. Pleural: No significant pleural effusions or pneumothorax. Cardiac: Cardiomegaly. Bones: No acute fractures. Other: IMPRESSION: No significant change in widespread bilateral airspace disease that may reflect multifoc al pneumonia and/or edema.
[2021-07-13] MEDS: ASPIRIN EC 81 MG TAB PO SCH (08:21)
[2021-07-13] MEDS: AMIODARONE HCL 200 MG TAB PO SCH ×2 (08:21→20:26)
[2021-07-13] MEDS: allopurinoL 300 MG TAB PO SCH (08:21)
[2021-07-13] MEDS: TICAGRELOR 90 MG TABLET PO SCH ×2 (08:21→20:26)
[2021-07-13] MEDS: APIXABAN 2.5 MG TABLET PO SCH ×2 (08:21→20:27)
[2021-07-13] MEDS: FUROSEMIDE 40 MG/4 ML VIAL IV SCH ×2 (08:21→16:56)
--- NOTE | 2021-07-13 10:23 | P.CNS ---
Date of Consult: 07/13/21 Reason for Consult: GITA/ CKD Requesting Physician: Shukri Marshall Chief Complaint: chf exacerbation History of Present Illness: Mr. Waller is a 66 yo M with CHF, HTN, DM, atrial fibrillation on xarelto, JEFF on CPAP, history of CVA who presents with sudden onset shortness of breath beginning today at 8:30pm. Upon arrival to the ED, sats were 73% on room air and he was struggling to breathe. He says when he got home from work he had chills, cough productive of sputum, no appetite so he laid down to take a nap. When he awoke, he could not catch his breath. He says he was scheduled to get a pacemaker this year but there were no appointments available so it got moved to July. He takes 80mg of Lasix PO daily and has noticed increased swelling in his legs for the past week. 23:34 This 66 yrs old Unknown Male presents to ER via Wheelchair with complaints of CHF kb Exacerbation, Shortness Of Breath, Cough. 23:34 The patient has shortness of breath at rest. Onset: The symptoms/episode began/occurred kb 1 hour(s) ago. Duration: The symptoms are continuous. The patient's shortness of breath is aggravated by exertion, is alleviated by nothing. Associated signs and symptoms: The patient has no apparent associated signs or symptoms. Severity of symptoms: At their worst the symptoms were severe in the emergency department the symptoms are unchanged. The patient has not experienced similar symptoms in the past. The patient has not recently seen a physician. 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 States he has CHF, but has also been exposed to covid. Allergies erythromycin base Adverse Reaction (Verified 05/19/19 23:08) upset stomach Home medications list reviewed: Yes Home Medications: Atorvastatin Calcium [Lipitor*] 1 tab PO BEDTIME 05/20/19 Eplerenone 1 tab PO DAILY 05/20/19 Furosemide 1 tab PO DAILY 05/20/19 Metformin ER [Glucophage ER*] 1 tab PO BEDTIME 05/20/19 allopurinoL [Zyloprim*] 1 tab PO DAILY 05/20/19 Amiodarone HCl [Pacerone] 200 mg PO DAILY 07/09/21 Amlodipine [Norvasc] 5 mg PO DAILY 07/09/21 Aspirin [Aspirin EC 81 MG] 81 mg PO DAILY 07/09/21 Dapagliflozin Propanediol [Farxiga] 5 mg PO DAILY 07/09/21 Deport-3S/Dha/Epa/Fish Oil [Deport-3 Fish Oil 1,000 mg Sfgl] 1 each PO DAILY 07/09/21 Potassium Chloride [Klor-Con 10] 15 meq PO DAILY 07/09/21 Rivaroxaban [Xarelto] 20 mg PO DAILY 07/09/21 Sacubitril/Valsartan [Entresto 97 mg-103 mg Tablet] 1 tab PO DAILY 07/09/21 - Past Medical/Surgical History Diabetic: Yes -: Hypertension -: Diabetes mellitus type 2 -: Congestive heart failure -: CVA 2018 -: Gout -: sleep apnea -: atrial fibrillation on xarelto -: appendectomy - Family History Mother Medical History: Heart disease Notes: hep C Father Medical History: Hypertension - Social History Smoking Status: Unknown if ever smoked Alcohol use: Yes CD- Drugs: No Caffeine use: No Place of Residence: Home Review of Systems 10-point ROS is otherwise unremarkable Respiratory: SOB with Excertion Cardiovascular: Edema Neurological: Weakness Physical Examination Temp Pulse Resp BP Pulse Ox 97.7 F 95 H 27 H 168/55 H 91 07/13/21 08:00 07/13/21 09:00 07/13/21 09:00 07/13/21 09:00 07/13/21 09:00 General: In no apparent distress, Oriented x3, Cooperative HEENT: Atraumatic Neck: Supple, JVD distended Respiratory: Clear to auscultation bilaterally Cardiovascular: Regular rate/rhythm, Edema Gastrointestinal: Soft and benign, Non-distended Musculoskeletal: No clubbing Integumentary: No rashes, No cyanosis Neurological: Normal speech Blood work reviewed in the chart. Imagings Data: EXAM DESCRIPTION: RAD - Chest Single View - 07/13/2021 5:23 am CLINICAL HISTORY: Follow up CHF COMPARISON: Chest Single View dated 07/12/2021; Chest Single View dated 07/11/2021; Chest Single View dated 07/08/2021; Chest Pa And Lat (2 Views) dated 11/20/2020 FINDINGS: Lines: None. Lungs: Unchanged widespread bilateral airspace opacities. Pleural: No significant pleural effusions or pneumothorax. Cardiac: Cardiomegaly. Bones: No acute fractures. Other: IMPRESSION: No significant change in widespread bilateral airspace disease that may reflect multifocal pneumonia and/or edema. LEFT VENTRICULAR WALL MOTION: GLOBAL MODERATE HYPOKINESIS LVEF 30-35% DOPPLER/COLOR FLOW: MILD MITRAL REGURGITATION COMMENTS: MODERATELY DEPRESSED LEFT VENTRICULAR EJECTION FRACTION 30-35% WITH MODERATE GLOBAL HYPOKINESIS. MILD MITRAL REGURGITATION. ELEVATED FILLING PRESSURE WITH RIGHT ATRIAL PRESSURE LESS THAN 20 mmHg. LEFT ATRIAL ENLARGEMENT. ATRIAL FIBRILLATION. Conclusions/Impression: CKD III -No NSAIDs Hypernatremia -Continue IVF bolus. -Give Metolazone X1 -Start Spironolactone BID Hypokalemia -Replete potassium -Start Spironolactone HTN with CKD/ CHF -Start Metoprolol BID Systolic CHF, A/C -Low sodium diet -Start Metoprolol BID DM II -RISS Moderate malnutrition -Consider protein supplementation Anemia in chronic illness -Monitor H&H Thank you kindly for the consultation. Case reviewed with Dr. Marshall
[2021-07-13] MEDS: METOPROLOL TAR 25 MG TAB PO SCH ×2 (11:43→20:27)
--- NOTE | 2021-07-13 11:43 | ECHO ---
HEIGHT: 5 ft 10 in WEIGHT: 254 lb 11.2 oz DATE OF STUDY: 07/13/[address]: Shukri Marshall DO 2-DIMENSIONAL: YES M.MODE: YES DOPPLER: YES COLOR FLOW: YES TDS: PORTABLE: DEFINITY: BUBBLE STUDY: DIAGNOSIS: RECHECK ECHOCARDIOGRAM POST CATH PER CARDIOLODY CARDIAC HISTORY: CATHERIZATION: SURGERY: PROSTHETIC VALVE: PACEMAKER: MEASUREMENTS (cm) DIASTOLIC (NORMALS) SYSTOLIC (NORMALS) IVSd 1.2 (0.6-1.2) LA Diam 4.7 (1.9-4.0) LVEF 26% LVIDd 4.9 (3.5-5.7) LVIDs 4.3 (2.0-3.5) %FS 12% LVPWd 1.2 (0.6-1.2) Ao Diam 2.6 (2.0-3.7) 2 DIMENSIONAL ASSESSMENT: RIGHT ATRIUM: NORMAL LEFT ATRIUM: NORMAL RIGHT VENTRICLE: NORMAL LEFT VENTRICLE: NORMAL TRICUSPID VALVE: NORMAL MITRAL VALVE: NORMAL SIZE PULMONIC VALVE: NORMAL AORTIC VALVE: NORMAL PERICARDIAL EFFUSION: NONE AORTIC ROOT: NORMAL LEFT VENTRICULAR WALL MOTION: SEVERE GLOBAL HYPOKINESIS DOPPLER/COLOR FLOW: NORMAL COMMENTS: SEVERE GLOBAL HYPOKINESIS. EJECTION FRACTION 26%. NO EFFUSION. TECHNOLOGIST: MACKENZIE SAAB
[2021-07-13] MEDS: SPIRONOLACTONE 25 MG TABLET PO SCH ×2 (11:44→20:26)
[2021-07-13] MEDS ORDERED: METOLAZONE 5 MG TABLET PO ONE (12:00)
[2021-07-13] MEDS: levoFLOXacin 750 MG TAB PO SCH (13:03)
[2021-07-13] MEDS ORDERED: POLYVINYL ALCOHOL 1.4% 15 ML EACH EYE PRN (18:01)
[2021-07-13] MEDS: ATORVASTATIN 20 MG TAB PO SCH (20:27)
[2021-07-13 21:34] LABS: Potassium 3.7 mmol/L (3.5-5.1)
[2021-07-13 23:21] LABS: Urine Appearance CLEAR (Clear); Urine Bilirubin NEGATIVE (Negative); Urine Blood NEGATIVE (Negative); Urine Color YELLOW (Yellow); Urine Glucose NEGATIVE (Negative); Urine Protein NEGATIVE (Negative); Urine pH 6.5 (5.0-7.0)
[2021-07-13 23:24] LABS: Urine Microscopic Reflex NO UMIC
[2021-07-13 23:28] LABS: UR PROTEIN 6.1 mg/dL (<11.9); Urine Protein/Creatinine Ratio 0.32 ratio (<0.15)
[2021-07-14 02:02] LABS: Urine Bacteria <20 /HPF (NONE SEEN)
[2021-07-14 02:05] LABS: Urine RBC NONE SEEN /HPF (NONE SEEN)
[2021-07-14] MEDS: PANTOPRAZOLE 40MG TABLET PO SCH (04:54)
[2021-07-14 05:08] LABS: Absolute Lymphocytes (CBC) 0.8 K/uL (0.7-4.9); Hematocrit 38.8 % (39.6-49.0); Lymphocytes % 7.7 % (15.3-44.8); MPV 8.5 fL (7.6-11.3); RBC Red Blood Cell Count 4.49 M/uL (4.33-5.43)
[2021-07-14 05:25] LABS: Magnesium 2.2 mg/dL (1.8-2.4); Phosphorus 4.7 mg/dL (2.5-4.9); Potassium 3.1 mmol/L (3.5-5.1)
[2021-07-14 05:39] VITALS: BMI 35.6
--- NOTE | 2021-07-14 05:43 | P.PN ---
Subjective Date of Service: 07/14/21 Primary Care Provider: Unknown Chief Complaint: chf exacerbation Subjective: Improving, Doing well Physical Examination - Vital Signs Temperature: 97.4 F Blood Pressure: 128/85 Pulse: 49 Respirations: 18 Pulse Ox (%): 96 - Studies Medications List Reviewed: Yes Assessment & Plan Discharge Plan: Home Plan to discharge in: 48 Hours Physician Review Additional Text: COVID: Negative Heart cath: Date of Procedure: 07/11/2021 Surgeon: GRISEL PALACIO Procedures Performed: 1. Selective coronary angiogram. 2. Left heart catheterization. 3. PCI of severe proximal LAD stenosis using a 4.0 x 24 mm Synergy drug- eluting stent deployed to high pressure size of 4.5 mm. 4. PCI of diagonal mid diagonal branch stenosis 99%, likely the culprit for the DC. I used 3.0 x 24 mm Synergy drug-eluting stent. Indication: Non-ST elevation myocardial infarction. Access: Right radial artery 6-Belarusian closed with TR band. Complications: None. Bleeding: Less than 10 mL. Anesthesia: Total sedation time was 75 minutes. Findings: 1. Left main is large and normal. 2. LAD; proximal 80% to 90% stenosis, possible culprit for the DC, status post successful PCI as above, diagonal 1 branch is a very large vessel. Mid 99% stenosis is probably the culprit of the DC, status post successful PCI as outli mari above. The rest of the LAD looks good. 3. Left circumflex; nondominant, moderate size. OM1 branch has proximal 40% to 50% stenosis. 4. RCA; large, dominant with diffuse 30% stenosis proximally and mid 30% stenosis and the PDA has a mid 90% stenosis, which will be staged at a later time. 5. LVEDP elevated at 22 mmHg. Conclusion: 1. Severe LAD and diagonal 1 branch, likely the culprit for DC, status post successful PCI of both. 2. Moderate coronary artery disease of the left circumflex and the RCA and severe coronary artery disease of the right PDA that will be staged at a later time once the patient is more stable hemodynamically clinically. Plan: 1. Continue Brilinta, aspirin, and high-dose statin. 2. Plan for staged PCI of the right PDA in 4-6 weeks, at which time, we will do IVUS of the LAD and the diagonal stent and post dilate further if needed. Initial ECHO: MEASUREMENTS (cm) DIASTOLIC (NORMALS) SYSTOLIC (NORMALS) IVSd 1.2 (0.6-1.2) LA Diam 4.5 (1.9-4.0) LVEF 30-35% LVIDd 5.6 (3.5-5.7) LVIDs 5.1 (2.0-3.5) %FS 9% LVPWd 1.2 (0.6-1.2) Ao Diam 2.9 (2.0-3.7) 2 DIMENSIONAL ASSESSMENT: RIGHT ATRIUM: NORMAL LEFT ATRIUM: ENLARGED RIGHT VENTRICLE: NORMAL LEFT VENTRICLE: DEPRESSED LEFT VENTRICULAR EJECTION FRACTION TRICUSPID VALVE: NORMAL MITRAL VALVE: MILD MITRAL REGURGITATION PULMONIC VALVE: NORMAL AORTIC VALVE: NORMAL PERICARDIAL EFFUSION: NONE AORTIC ROOT: NORMAL LEFT VENTRICULAR WALL MOTION: GLOBAL MODERATE HYPOKINESIS DOPPLER/COLOR FLOW: MILD MITRAL REGURGITATION COMMENTS: MODERATELY DEPRESSED LEFT VENTRICULAR EJECTION FRACTION 30-35% WITH MODERATE GLOBAL HYPOKINESIS. MILD MITRAL REGURGITATION. ELEVATED FILLING PRESSURE WITH RIGHT ATRIAL PRESSURE LESS THAN 20 mmHg. LEFT ATRIAL ENLARGEMENT. ATRIAL FIBRILLATION. Post Heart cath ECHO: DIAGNOSIS: RECHECK ECHOCARDIOGRAM POST CATH PER CARDIOLODY CARDIAC HISTORY: CATHERIZATION: SURGERY: PROSTHETIC VALVE: PACEMAKER: MEASUREMENTS (cm) DIASTOLIC (NORMALS) SYSTOLIC (NORMALS) IVSd 1.2 (0.6-1.2) LA Diam 4.7 (1.9-4.0) LVEF 26% LVIDd 4.9 (3.5-5.7) LVIDs 4.3 (2.0-3.5) %FS 12% LVPWd 1.2 (0.6-1.2) Ao Diam 2.6 (2.0-3.7) 2 DIMENSIONAL ASSESSMENT: RIGHT ATRIUM: NORMAL LEFT ATRIUM: NORMAL RIGHT VENTRICLE: NORMAL LEFT VENTRICLE: NORMAL TRICUSPID VALVE: NORMAL MITRAL VALVE: NORMAL SIZE PULMONIC VALVE: NORMAL AORTIC VALVE: NORMAL PERICARDIAL EFFUSION: NONE AORTIC ROOT: NORMAL LEFT VENTRICULAR WALL MOTION: SEVERE GLOBAL HYPOKINESIS DOPPLER/COLOR FLOW: NORMAL COMMENTS: SEVERE GLOBAL HYPOKINESIS. EJECTION FRACTION 26%. NO EFFUSION. Follow up CXR 07/14/2021: COMPARISON: July FINDINGS: Mild improvement in the diffuse bilateral pulmonary opacities. Heart remains enlarged IMPRESSION: Mild improvement in bilateral pulmonary opacities which may represent pulmonary edema or pneumonia Physical exam: General: Alert, In no apparent distress Respiratory: Better air movement bilateral. Currently on CPAP. Cardiovascular: A. fib rate controlled Gastrointestinal: Normal bowel sounds, Soft and benign, Non-distended Musculoskeletal: No clubbing, No swelling, No tenderness. No edema to the lower extremities Neurological: Sensation intact, Cranial nerves 3-12 intact Impression: Atrial fibrillation with RVR on chronic anticoagulation therapy Acute on chronic systolic CHF with ejection fraction 26% Elevated troponin secondary to NSTEMI status post heart catheterization with stents placed to severe proximal LAD stenosis and mid diagonal branch stenosis Chronic renal disease stage III with Hypernatremia Diabetes mellitus type 2 Hypertension Pneumonia Hyperlipidemia Obstructive sleep apnea Gout Plan: Atrial fibrillation with RVR on chronic anticoagulation therapy: Overall improved. Patient status post heart catheterization. Doing better. Continue diuresis. Continue IV Lasix 40 mg twice daily and Aldactone 25 mg 1 pill twice daily. Patient given Zaroxolyn yesterday by nephrology. Continue 1500 cc/day fluid restriction. Continue to wean off oxygen. Patient will likely require oxygen at discharge. Physical therapy to assess ambulation. Patient remains on amiodarone 200 mg 1 pill twice daily, Eliquis 2.5 mg 1 pill twice daily, Lipitor 20 mg daily, and Brilinta 90 mg 1 pill twice daily. Will discuss with Nephrology and cardiology to see if patient can be moved to the floor. Anticipate continued improvement. Likely home in the next 1 to 2 days. Acute on chronic systolic CHF EF 26%: Repeat echocardiogram shows ejection fraction 26%. Continue IV Lasix 40 mg 1 pill twice daily and Aldactone 25 mg 1 pill twice daily. Continue 1500 cc/day fluid restriction. Elevated troponin secondary to NSTEMI status post heart catheterization showing severe CAD with stents placed to severe proximal LAD stenosis and mid diagonal branch stenosis: Patient with severe disease. Continue aspirin, Brilinta, statin medication. Planned future heart catheterization for right PDA in about 4 to 6 weeks. Cardiology plans for IVUS of the LAD and diagonal stent in the future. Chronic renal disease stage III with Hypernatremia: Hypernatremia resolved. Case discussed with nephrology. Patient remains on Aldactone. Diabetes mellitus type 2: Continue Accu-Cheks and sliding scale. Hypertension: Metoprolol was added by nephrology yesterday. Will decrease metoprolol as he has some episodes of bradycardia. We will monitor this closely. If with continued bradycardia will need to discontinue metoprolol. Pneumonia: Patient on Levaquin. Continue to monitor closely. Wean off oxygen. Hyperlipidemia: Continue Lipitor 20 mg daily. Obstructive sleep apnea: Continue with CPAP at night Gout: Continue allopurinol DVT prophylaxis: Eliquis CODE STATUS: Full code Advance care minutes: Home at discharge. Anticipate home in the next 1 to 2 days with home oxygen. Time Spent Managing Pts Care (In Minutes): 55
[2021-07-14] MEDS ORDERED: POTASSIUM 25 MEQ EFFERV TAB PO ONE (07:10)
[2021-07-14] MEDS: INSULIN -REGULAR HUMAN 50 UNIT/0.5 ML ML SQ SCH ×4 (07:11→20:05)
--- NOTE | 2021-07-14 07:36 | RAD REPORT ---
EXAM DESCRIPTION: Romulo Single View07/14/2021 6:08 am CLINICAL HISTORY: Shortness of breath COMPARISON: July FINDINGS: Mild improvement in the diffuse bilateral pulmonary opacities. Heart remains enlarged IMPRESSION: Mild improvement in bilateral pulmonary opacities which may represent pulmonary edema o r pneumonia
[2021-07-14] MEDS: FUROSEMIDE 40 MG/4 ML VIAL IV SCH ×2 (08:11→17:04)
[2021-07-14] MEDS: SPIRONOLACTONE 25 MG TABLET PO SCH ×2 (08:12→19:39)
[2021-07-14] MEDS: allopurinoL 300 MG TAB PO SCH (08:12)
[2021-07-14] MEDS: AMIODARONE HCL 200 MG TAB PO SCH ×2 (08:12→19:40)
[2021-07-14] MEDS: ASPIRIN EC 81 MG TAB PO SCH (08:12)
[2021-07-14] MEDS: APIXABAN 2.5 MG TABLET PO SCH ×2 (08:13→19:41)
[2021-07-14] MEDS: METOPROLOL TAR 25 MG TAB PO SCH ×2 (08:13→19:41)
[2021-07-14] MEDS: TICAGRELOR 90 MG TABLET PO SCH ×2 (08:14→19:39)
[2021-07-14] MEDS ORDERED: POTASSIUM CL SA 10 MEQ TAB PO ONE (12:10)
[2021-07-14] MEDS ORDERED: METOLAZONE 5 MG TABLET PO SCH (13:00)
[2021-07-14] MEDS ORDERED: METOLAZONE 5 MG TABLET PO ONE (13:00)
[2021-07-14] MEDS: ATORVASTATIN 20 MG TAB PO SCH (19:41)
--- NOTE | 2021-07-14 21:12 | P.PN ---
Date of Service: 07/14/21 Vital Signs Temp Pulse Resp BP Pulse Ox 97.3 F 78 19 138/90 96 07/14/21 20:00 07/14/21 20:00 07/14/21 20:00 07/14/21 20:00 07/14/21 20:00 Medications Acetaminophen (Acetaminophen 500 Mg Tab) 500 mg PO Q4HP PRN PRN Reason: Pain scale 2-4 (Mild) Last Admin: 07/11/21 00:06 Dose: 500 mg Documented by: Allopurinol (Allopurinol 300 Mg Tab) 300 mg PO DAILY [facility] Last Admin: 07/14/21 08:12 Dose: 300 mg Documented by: Amiloride HCl (Amiloride Hcl 5 Mg Tablet) 10 mg PO 1X ONE Stop: 07/14/21 21:16 Amiodarone HCl (Amiodarone Hcl 200 Mg Tab) 200 mg PO BID [facility] Last Admin: 07/14/21 19:40 Dose: 200 mg Documented by: Apixaban (Apixaban 2.5 Mg Tablet) 2.5 mg PO BID [facility] Last Admin: 07/14/21 19:41 Dose: 2.5 mg Documented by: Artificial Tears (Polyvinyl Alcohol 1.4% 15 Ml) 1 drops EACH EYE TID PRN PRN Reason: dry/burn eyes Last Admin: 07/13/21 18:46 Dose: 1 drops Documented by: Aspirin (Aspirin Ec 81 Mg Tab) 81 mg PO DAILY [facility] Last Admin: 07/14/21 08:12 Dose: 81 mg Documented by: Atorvastatin Calcium (Atorvastatin 20 Mg Tab) 20 mg PO BEDTIME [facility] Last Admin: 07/14/21 19:41 Dose: 20 mg Documented by: Furosemide (Furosemide 40 Mg/4 Ml Vial) 40 mg IV BIDL [facility] Last Admin: 07/14/21 17:04 Dose: 40 mg Documented by: Hydralazine HCl (Hydralazine Hcl 20 Mg/Ml Vial) 10 mg IV Q6HP PRN PRN Reason: Titrate to SBP (MUST DEFINE) Insulin Human Regular (Insulin -Regular Human 50 Unit/0.5 Ml Ml) 0 unit SQ ACHS [facility]; Protocol Last Admin: 07/14/21 20:05 Dose: 6 unit Documented by: Levofloxacin (Levofloxacin 750 Mg Tab) 750 mg PO Q48H [facility]; Protocol Last Admin: 07/13/21 13:03 Dose: 750 mg Documented by: Metoprolol Tartrate (Metoprolol Tar 25 Mg Tab) 12.5 mg PO BID [facility] Last Admin: 07/14/21 19:41 Dose: 12.5 mg Documented by: Ondansetron HCl (Ondansetron 4 Mg/2 Ml Vial) 4 mg IV Q6HP PRN PRN Reason: NAUSEA / VOMITING Pantoprazole Sodium (Pantoprazole 40mg Tablet) 40 mg PO DAILYAC [facility]; Protocol Last Admin: 07/14/21 04:54 Dose: 40 mg Documented by: Sodium Chloride (Flush Normal Saline 10 Ml) 10 ml IV BID [facility] Last Admin: 07/14/21 19:42 Dose: 10 ml Documented by: Spironolactone (Spironolactone 25 Mg Tablet) 25 mg PO BID [facility] Last Admin: 07/14/21 19:39 Dose: 25 mg Documented by: Ticagrelor (Ticagrelor 90 Mg Tablet) 90 mg PO BID [facility] Last Admin: 07/14/21 19:39 Dose: 90 mg Documented by: Assessment/ Plan: Nephrology Improving dyspnea. Feeling better. +BM Good urine output. No chest pain No acute events overnight Vitals, medications, blood work and imaging reviewed in the chart General: In no apparent distress, Oriented x3, Cooperative HEENT: Atraumatic Neck: Supple, JVD distended Respiratory: Clear to auscultation bilaterally Cardiovascular: Regular rate/rhythm, Edema Gastrointestinal: Soft and benign, Non-distended Musculoskeletal: No clubbing Integumentary: No rashes, No cyanosis Neurological: Normal speech Blood work reviewed in the chart. Imagings Data: EXAM DESCRIPTION: RAD - Chest Single View - 07/13/2021 5:23 am CLINICAL HISTORY: Follow up CHF COMPARISON: Chest Single View dated 07/12/2021; Chest Single View dated 07/11/2021; Chest Single View dated 07/08/2021; Chest Pa And Lat (2 Views) dated 11/20/2020 FINDINGS: Lines: None. Lungs: Unchanged widespread bilateral airspace opacities. Pleural: No significant pleural effusions or pneumothorax. Cardiac: Cardiomegaly. Bones: No acute fractures. Other: IMPRESSION: No significant change in widespread bilateral airspace disease that may reflect multifocal pneumonia and/or edema. LEFT VENTRICULAR WALL MOTION: GLOBAL MODERATE HYPOKINESIS LVEF 30-35% DOPPLER/COLOR FLOW: MILD MITRAL REGURGITATION COMMENTS: MODERATELY DEPRESSED LEFT VENTRICULAR EJECTION FRACTION 30-35% WITH MODERATE GLOBAL HYPOKINESIS. MILD MITRAL REGURGITATION. ELEVATED FILLING PRESSURE WITH RIGHT ATRIAL PRESSURE LESS THAN 20 mmHg. LEFT ATRIAL ENLARGEMENT. ATRIAL FIBRILLATION. Conclusions/Impression: CKD III -No NSAIDs Hypernatremia -Continue IVF bolus. -Give Metolazone X1 -Continue Spironolactone BID Hypokalemia -Replete potassium -Continue Spironolactone -Give Amiloride X1 HTN with CKD/ CHF -Continue Metoprolol BID Systolic CHF, A/C -Low sodium diet -Continue Metoprolol BID DM II -RISS Moderate malnutrition -Consider protein supplementation Anemia in chronic illness -Monitor H&H
[2021-07-14] MEDS ORDERED: AMILORIDE HCL 5 MG TABLET PO ONE (21:15)
[2021-07-14 21:55] VITALS: O2SAT 96
[2021-07-15 05:43] LABS: Absolute Lymphocytes (CBC) 1.1 K/uL (0.7-4.9); Hematocrit 41.9 % (39.6-49.0); Lymphocytes % 9.3 % (15.3-44.8); MPV 8.5 fL (7.6-11.3); RBC Red Blood Cell Count 4.82 M/uL (4.33-5.43)
--- NOTE | 2021-07-15 06:00 | P.DS ---
Admission Date: 07/08/21 Discharge Date: 07/15/21 Primary Care Provider: Dr. Key; Cardiology-Dr. Roman; Nephrology-Dr. Hoyt Disposition: ROUTINE DISCHARGE Discharge Condition: GOOD Reason for Admission: chf exacerbation Consultations: Cardiology-Dr. Palacio Nephrology-Dr. Hoyt Procedures: COVID: Negative Heart cath: Date of Procedure: 07/11/2021 Surgeon: GRISEL PALACIO Procedures Performed: 1. Selective coronary angiogram. 2. Left heart catheterization. 3. PCI of severe proximal LAD stenosis using a 4.0 x 24 mm Synergy drug- eluting stent deployed to high pressure size of 4.5 mm. 4. PCI of diagonal mid diagonal branch stenosis 99%, likely the culprit for the [place]. I used 3.0 x 24 mm Synergy drug-eluting stent. Indication: Non-ST elevation myocardial infarction. Access: Right radial artery 6-Greenlandic closed with TR band. Complications: None. Bleeding: Less than 10 mL. Anesthesia: Total sedation time was 75 minutes. Findings: 1. Left main is large and normal. 2. LAD; proximal 80% to 90% stenosis, possible culprit for the [place], status post successful PCI as above, diagonal 1 branch is a very large vessel. Mid 99% stenosis is probably the culprit of the [place], status post successful PCI as outlined above. The rest of the LAD looks good. 3. Left circumflex; nondominant, moderate size. OM1 branch has proximal 40% to 50% stenosis. 4. RCA; large, dominant with diffuse 30% stenosis proximally and mid 30% stenosis and the PDA has a mid 90% stenosis, which will be staged at a later time. 5. LVEDP elevated at 22 mmHg. Conclusion: 1. Severe LAD and diagonal 1 branch, likely the culprit for [place], status post successful PCI of both. 2. Moderate coronary artery disease of the left circumflex and the RCA and severe coronary artery disease of the right PDA that will be staged at a later time once the patient is more stable hemodynamically clinically. Plan: 1. Continue Brilinta, aspirin, and high-dose statin. 2. Plan for staged PCI of the right PDA in 4-6 weeks, at which time, we will do IVUS of the LAD and the diagonal stent and post dilate further if needed. Initial ECHO: MEASUREMENTS (cm) DIASTOLIC (NORMALS) SYSTOLIC (NORMALS) IVSd 1.2 (0.6-1.2) LA Diam 4.5 (1.9-4.0) LVEF 30-35% LVIDd 5.6 (3.5-5.7) LVIDs 5.1 (2.0-3.5) %FS 9% LVPWd 1.2 (0.6-1.2) Ao Diam 2.9 (2.0-3.7) 2 DIMENSIONAL ASSESSMENT: RIGHT ATRIUM: NORMAL LEFT ATRIUM: ENLARGED RIGHT VENTRICLE: NORMAL LEFT VENTRICLE: DEPRESSED LEFT VENTRICULAR EJECTION FRACTION TRICUSPID VALVE: NORMAL MITRAL VALVE: MILD MITRAL REGURGITATION PULMONIC VALVE: NORMAL AORTIC VALVE: NORMAL PERICARDIAL EFFUSION: NONE AORTIC ROOT: NORMAL LEFT VENTRICULAR WALL MOTION: GLOBAL MODERATE HYPOKINESIS DOPPLER/COLOR FLOW: MILD MITRAL REGURGITATION COMMENTS: MODERATELY DEPRESSED LEFT VENTRICULAR EJECTION FRACTION 30-35% WITH MODERATE GLOBAL HYPOKINESIS. MILD MITRAL REGURGITATION. ELEVATED FILLING PRESSURE WITH RIGHT ATRIAL PRESSURE LESS THAN 20 mmHg. LEFT ATRIAL ENLARGEMENT. ATRIAL FIBRILLATION. Post Heart cath ECHO: DIAGNOSIS: RECHECK ECHOCARDIOGRAM POST CATH PER CARDIOLODY CARDIAC HISTORY: CATHERIZATION: SURGERY: PROSTHETIC VALVE: PACEMAKER: MEASUREMENTS (cm) DIASTOLIC (NORMALS) SYSTOLIC (NORMALS) IVSd 1.2 (0.6-1.2) LA Diam 4.7 (1.9-4.0) LVEF 26% LVIDd 4.9 (3.5-5.7) LVIDs 4.3 (2.0-3.5) %FS 12% LVPWd 1.2 (0.6-1.2) Ao Diam 2.6 (2.0-3.7) 2 DIMENSIONAL ASSESSMENT: RIGHT ATRIUM: NORMAL LEFT ATRIUM: NORMAL RIGHT VENTRICLE: NORMAL LEFT VENTRICLE: NORMAL TRICUSPID VALVE: NORMAL MITRAL VALVE: NORMAL SIZE PULMONIC VALVE: NORMAL AORTIC VALVE: NORMAL PERICARDIAL EFFUSION: NONE AORTIC ROOT: NORMAL LEFT VENTRICULAR WALL MOTION: SEVERE GLOBAL HYPOKINESIS DOPPLER/COLOR FLOW: NORMAL COMMENTS: SEVERE GLOBAL HYPOKINESIS. EJECTION FRACTION 26%. NO EFFUSION. Follow up CXR 07/14/2021: COMPARISON: July FINDINGS: Mild improvement in the diffuse bilateral pulmonary opacities. Heart remains enlarged IMPRESSION: Mild improvement in bilateral pulmonary opacities which may represent pulmonary edema or pneumonia Medical Problem List: Atrial fibrillation with RVR on chronic anticoagulation therapy Acute on chronic systolic CHF with ejection fraction 26% Elevated troponin secondary to NSTEMI status post heart catheterization with stents placed to severe proximal LAD stenosis and mid diagonal branch stenosis Chronic renal disease stage III with Hypernatremia Diabetes mellitus type 2 Hypertension Bilateral pneumonia Hyperlipidemia Obstructive sleep apnea Gout Brief History of Present Illness: 66-year-old male with history of CHF, hypertension, diabetes, atrial fibrillation on Xarelto, obstructive sleep apnea on CPAP, history of CVA. Patient presented with increasing shortness of breath. Saturations were low upon arrival. Patient difficulty breathing. Patient was admitted for further evaluation and treatment. Hospital Course: Patient presented with shortness of breath secondary to acute on chronic systolic CHF. This was complicated with atrial fibrillation with RVR. Patient with history of CHF and atrial fibrillation. Patient found to have elevated troponin secondary to NSTEMI. Patient was seen and evaluated by cardiology. She was placed on IV amiodarone with improvement in his atrial fibrillation. Patient also received IV diuretic therapy with improvement as well. Once stabilized the patient had heart catheterization which was recommended by pulmonology. Heart catheterization showed severe CAD. Stents placed to the proximal LAD and mid diagonal branch. Patient still has stenosis to the right PDA. Cardiology plans for future heart catheterization along with IVUS of the LAD and diagonal stent. Patient continued improve after heart catheterization and diuresis. Nephrology was consulted to help with this. Patient has done well. Patient now on room air. No significant chest pain or shortness of breath noted. Medications have been adjusted. Patient now on a higher dose of amiodarone. Patient no longer on aspirin since the patient will be on Brilinta and Xarelto at discharge. At discharge the patient will continue with amiodarone 200 mg twice daily, Xarelto 20 mg daily, Lipitor 20 mg daily, and Brilinta 90 mg 1 pill twice daily. Recommend follow-up with cardiology in 1 to 2 weeks to follow-up his hospitalization. As recommended above patient will require future heart catheterization to address the stenosis to the right PDA. Patient will also require IVUS of the LAD and diagonal stent. This will likely be done in the next 4 to 6 weeks. Recommend follow-up with his PCP in 1 week to follow-up his hospitalization. As mentioned above patient with acute on chronic systolic CHF. Ejection fraction 26% noted on repeat echocardiogram after heart catheterization. Patient was diuresed. Patient now back to baseline. His medications have been adjusted. Patient previously on Entresto, Lasix, and Eplerenone. At discharge patient currently on room air. No significant edema to the lower extremity. At discharge the patient will continue with the 1500 cc/day fluid restriction and low-salt diet. Recommend to monitor his weight daily. If his weight increases by more than 5 pounds further adjustment in medication may be required. Patient will no longer be on Entresto at discharge. At discharge the patient will continue with Lasix 80 mg 1 pill twice daily and Eplerenone 50 mg 1 pill twice daily. No need for potassium supplementation at discharge. Both medications(lasix and eplerenone) have been increased from his prior dosage. Recommend to recheck labBMP in 1 week to monitor his progress. Both medications may need to be decreased within the next 1 to 2 weeks pending his clinical status and lab. This can be done with the help of his PCP or nephrology. Recommend to recheck chest x-ray in 2 to 4 weeks to monitor resolution. Patient with chronic renal disease stage III. Patient received diuresis as mentioned above. Nephrology was consulted to help with this. Continue with above recommendations. Future medications will need to be renally dosed. Patient has done well. Above recommend to recheck labBMP in 1 week. Further adjustment in medication can be done with the help of nephrology. Patient with diabetes mellitus type 2. At discharge patient will continue with his current medications of Farxiga 5 mg daily and Metformin 500 mg daily. Recommend to maintain blood sugar less than 140 fasting and less than 200 after meals. Further adjustment can be done by his PCP. Recommend to recheck hemoglobin A1c every 3 months to monitor his progress. If GFR less than thirty then Metformin may need to be discontinued. Further adjustment in medication may be required. This could be done with the help of his PCP. Recommend follow-up with PCP to further monitor and adjust medication. Patient with hypertension. Patient previously on Norvasc. This was discontinued during his stay. Patient was placed on metoprolol for his CAD and CHF along with his hypertension. Overall stable on metoprolol. At discharge patient will continue with metoprolol 12.5 mg 1 pill twice daily. Recommend to maintain blood pressure less than 130/80. Further adjustment can be done by his PCP. Recommend to hold medication if blood pressure systolic less than 110 or heart rate less than 60. Further adjustment can be done by his PCP or cardiology. Patient also found to have pneumonia. Patient currently on room air. Patient doing well at this time. At discharge patient will continue with Levaquin 750 mg every 48 hours for two more doses. Recommend to recheck chest x-ray in 2 to 4 weeks to monitor resolution. Patient with hyperlipidemia. At discharge patient will continue with Lipitor 20 mg daily and fish oil 1000 mg daily. Recommend to recheck labCMP and fasting lipid panel in 4 to 6 weeks to monitor his progress. Patient with obstructive sleep apnea. At discharge patient will continue with CPAP at night. Follow-up with pulmonology as an outpatient to further monitor and address. Patient with history of gout. At discharge patient will continue with allopurin ol 300 mg daily. Patient with GERD. At discharge patient will continue with Protonix 40 mg daily. Vital Signs/Physical Exam: Temp Pulse Resp BP Pulse Ox 97.4 F 62 20 116/73 99 07/15/21 04:00 07/15/21 04:00 07/15/21 04:00 07/15/21 04:00 07/15/21 04:00 General: Alert, In no apparent distress, Oriented x3, Cooperative HEENT: Atraumatic Neck: Supple Respiratory: Clear to auscultation bilaterally, Normal air movement Cardiovascular: Normal pulses, Regular rate/rhythm Gastrointestinal: Normal bowel sounds, No ascites, No tenderness, No masses, No rebound, No guarding Musculoskeletal: No tenderness, No warmth Integumentary: No tenderness/swelling, No erythema, No warmth, No cyanosis Neurological: Normal speech, Normal strength at 5/5 x4 extr, Normal tone Laboratory Data at Discharge: WBC 11.40 K/uL (4.3-10.9) H 07/15/21 05:05 Hgb 13.5 g/dL (13.6-17.9) L 07/15/21 05:05 Hct 41.9 % (39.6-49.0) 07/15/21 05:05 Plt Count 295 K/uL (152-406) 07/15/21 05:05 PT 15.1 SECONDS (9.5-12.5) H 07/08/21 21:04 INR 1.31 07/08/21 21:04 APTT Cancelled 07/11/21 06:45 Sodium 144 mmol/L (136-145) 07/14/21 04:39 Potassium 3.1 mmol/L (3.5-5.1) L 07/14/21 04:39 BUN 34 mg/dL (7-18) H 07/14/21 04:39 Creatinine 1.28 mg/dL (0.55-1.3) 07/14/21 04:39 Glucose 144 mg/dL (74-106) H 07/14/21 04:39 Uric Acid 7.0 mg/dL (3.5-7.2) 07/14/21 04:39 Phosphorus 4.7 mg/dL (2.5-4.9) 07/14/21 04:39 Magnesium 2.2 mg/dL (1.8-2.4) 07/14/21 04:39 Total Bilirubin 2.4 mg/dL (0.2-1.0) H 07/11/21 01:53 AST 25 U/L (15-37) 07/11/21 01:53 ALT 30 U/L (12-78) 07/11/21 01:53 Alkaline Phosphatase 125 U/L (45-117) H 07/11/21 01:53 Troponin I 9.38 ng/mL (0.0-0.045) H* 07/09/21 19:41 Triglycerides 71 mg/dL (<150) 07/09/21 10:54 Cholesterol 111 mg/dL (<200) 07/09/21 10:54 HDL Cholesterol 54 mg/dL (40-60) 07/09/21 10:54 Cholesterol/HDL Ratio 2.06 07/09/21 10:54 Home Medications: Atorvastatin Calcium [Lipitor*] 1 tab PO BEDTIME 05/20/19 Eplerenone 1 tab PO DAILY 05/20/19 Metformin ER [Glucophage ER*] 1 tab PO BEDTIME 05/20/19 allopurinoL [Zyloprim*] 1 tab PO DAILY 05/20/19 Dapagliflozin Propanediol [Farxiga] 5 mg PO DAILY 07/09/21 Hematite-3S/Dha/Epa/Fish Oil [Hematite-3 Fish Oil 1,000 mg Sfgl] 1 each PO DAILY 07/09/21 Rivaroxaban [Xarelto*] 20 mg PO DAILY 07/09/21 Amiodarone HCl [Cordarone*] 200 mg PO BID #60 tab 07/15/21 Eplerenone 50 mg PO BID #60 tablet 07/15/21 Furosemide 1 tab PO BID #60 07/15/21 Metoprolol Tartrate [Lopressor*] 12.5 mg PO BID #30 tab 07/15/21 Pantoprazole [Protonix Tab*] 40 mg PO DAILYAC #30 tab 07/15/21 Ticagrelor [Brilinta*] 90 mg PO BID #60 tablet 07/15/21 levoFLOXacin [Levaquin*] 750 mg PO Q48H #2 tab 07/15/21 New Medications: Ticagrelor [Brilinta*] 90 mg PO BID #60 tablet Amiodarone HCl [Cordarone*] 200 mg PO BID #60 tab Eplerenone 50 mg PO BID #60 tablet Furosemide 1 tab PO BID #60 levoFLOXacin [Levaquin*] 750 mg PO Q48H #2 tab Metoprolol Tartrate [Lopressor*] 12.5 mg PO BID #30 tab Pantoprazole [Protonix Tab*] 40 mg PO DAILYAC #30 tab Physician Discharge Instructions: Patient presented with shortness of breath secondary to acute on chronic systolic CHF. This was complicated with atrial fibrillation with RVR. Patient with history of CHF and atrial fibrillation. Patient found to have elevated troponin secondary to NSTEMI. Patient was seen and evaluated by cardiology. She was placed on IV amiodarone with improvement in his atrial fibrillation. Patient also received IV diuretic therapy with improvement as well. Once stabilized the patient had heart catheterization which was recommended by pulmonology. Heart catheterization showed severe CAD. Stents placed to the proximal LAD and mid diagonal branch. Patient still has stenosis to the right PDA. Cardiology plans for future heart catheterization along with IVUS of the LAD and diagonal stent. Patient continued improve after heart catheterization and diuresis. Nephrology was consulted to help with this. Patient has done well. Patient now on room air. No significant chest pain or shortness of breath noted. Medications have been adjusted. Patient now on a higher dose of amiodarone. Patient no longer on aspirin since the patient will be on Brilinta and Xarelto at discharge. At discharge the patient will continue with amiodarone 200 mg twice daily, Xarelto 20 mg daily, Lipitor 20 mg daily, and Brilinta 90 mg 1 pill twice daily. Recommend follow-up with cardiology in 1 to 2 weeks to follow-up his hospitalization. As recommended above patient will require future heart catheterization to address the stenosis to the right PDA. Patient will also require IVUS of the LAD and diagonal stent. This will likely be done in the next 4 to 6 weeks. Recommend follow-up with his PCP in 1 week to follow-up his hospitalization. As mentioned above patient with acute on chronic systolic CHF. Ejection fraction 26% noted on repeat echocardiogram after heart catheterization. Patient was diuresed. Patient now back to baseline. His medications have been adjusted. Patient previously on Entresto, Lasix, and Eplerenone. At discharge patient currently on room air. No significant edema to the lower extremity. At discharge the patient will continue with the 1500 cc/day fluid restriction and low-salt diet. Recommend to monitor his weight daily. If his weight increases by more than 5 pounds further adjustment in medication may be required. Patient will no longer be on Entresto at discharge. At discharge the patient will continue with Lasix 80 mg 1 pill twice daily and Eplerenone 50 mg 1 pill twice daily. No need for potassium supplementation at discharge. Both medication s(lasix and eplerenone) have been increased from his prior dosage. Recommend to recheck labBMP in 1 week to monitor his progress. Both medications may need to be decreased within the next 1 to 2 weeks pending his clinical status and lab. This can be done with the help of his PCP or nephrology. Recommend to recheck chest x-ray in 2 to 4 weeks to monitor resolution. Patient with chronic renal disease stage III. Patient received diuresis as mentioned above. Nephrology was consulted to help with this. Continue with above recommendations. Future medications will need to be renally dosed. Patient has done well. Above recommend to recheck labBMP in 1 week. Further adjustment in medication can be done with the help of nephrology. Patient with diabetes mellitus type 2. At discharge patient will continue with his current medications of Farxiga 5 mg daily and Metformin 500 mg daily. Recommend to maintain blood sugar less than 140 fasting and less than 200 after meals. Further adjustment can be done by his PCP. Recommend to recheck hemoglobin A1c every 3 months to monitor his progress. If GFR less than thirty then Metformin may need to be discontinued. Further adjustment in medication may be required. This could be done with the help of his PCP. Recommend follow-up with PCP to further monitor and adjust medication. Patient with hypertension. Patient previously on Norvasc. This was discontinued during his stay. Patient was placed on metoprolol for his CAD and CHF along with his hypertension. Overall stable on metoprolol. At discharge patient will continue with metoprolol 12.5 mg 1 pill twice daily. Recommend to maintain blood pressure less than 130/80. Further adjustment can be done by his PCP. Recommend to hold medication if blood pressure systolic less than 110 or heart rate less than 60. Further adjustment can be done by his PCP or cardiology. Patient also found to have pneumonia. Patient currently on room air. Patient doing well at this time. At discharge patient will continue with Levaquin 750 mg every 48 hours for two more doses. Recommend to recheck chest x-ray in 2 to 4 weeks to monitor resolution. Patient with hyperlipidemia. At discharge patient will continue with Lipitor 20 mg daily and fish oil 1000 mg daily. Recommend to recheck labCMP and fasting lipid panel in 4 to 6 weeks to monitor his progress. Patient with obstructive sleep apnea. At discharge patient will continue with CPAP at night. Follow-up with pulmonology as an outpatient to further monitor and address. Patient with history of gout. At discharge patient will continue with allopurinol 300 mg daily. Patient with GERD. At discharge patient will continue with Protonix 40 mg daily. Diet: ADA Activity: Ad mila Followup: Mike Key MD [Primary Care Provider] - Time spent managing pt's care (in minutes): 55
[2021-07-15 06:02] LABS: Albumin 2.6 g/dL (3.4-5.0); Bilirubin Direct 0.4 mg/dL (0-0.2); Magnesium 2.2 mg/dL (1.8-2.4); Potassium 3.5 mmol/L (3.5-5.1); Protein, Total 7.3 g/dL (6.4-8.2); Uric Acid 8.1 mg/dL (3.5-7.2)
[2021-07-15] MEDS: PANTOPRAZOLE 40MG TABLET PO SCH (06:05)
--- NOTE | 2021-07-15 07:24 | RAD REPORT ---
EXAM DESCRIPTION: RAD - Chest Single View - 07/15/2021 5:07 am CLINICAL HISTORY: CHF COMPARISON: Portable July 14, portable July 13 TECHNIQUE: AP portable chest image was obtained 07/15/2021 5:07 am . FINDINGS: There is been slight further improvement in the interstitial and alveolar opacification pa ttern on serial exam review. No progressive lung parenchymal process. Trachea remains in the midline. Cardiomegaly and vascular engorgement are stable. No measurable pleur al effusion and no pneumothorax. IMPRESSION: CHF/volume overload findings show very slight improvement from July 14.
[2021-07-15] MEDS: INSULIN -REGULAR HUMAN 50 UNIT/0.5 ML ML SQ SCH ×2 (07:30→11:30)
[2021-07-15] MEDS ORDERED: POTASSIUM CL SA 10 MEQ TAB PO ONE (07:32)
[2021-07-15] MEDS: allopurinoL 300 MG TAB PO SCH (09:42)
[2021-07-15] MEDS: SPIRONOLACTONE 25 MG TABLET PO SCH (09:42)
[2021-07-15] MEDS: METOPROLOL TAR 25 MG TAB PO SCH (09:42)
[2021-07-15] MEDS: AMIODARONE HCL 200 MG TAB PO SCH (09:42)
[2021-07-15] MEDS: APIXABAN 2.5 MG TABLET PO SCH (09:42)
[2021-07-15] MEDS: TICAGRELOR 90 MG TABLET PO SCH (09:43)
[2021-07-15] MEDS: FUROSEMIDE 40 MG/4 ML VIAL IV SCH (09:43)
[2021-07-15] MEDS ORDERED: AMILORIDE HCL 5 MG TABLET PO ONE ×2 (10:00→12:30)
[2021-07-15 13:51] VITALS: BP 126/83; TEMP 97.3
[2021-07-15] MEDS: levoFLOXacin 750 MG TAB PO SCH (14:43)
--- NOTE | 2021-07-15 23:44 | P.PN ---
Date of Service: 07/15/21 Vital Signs Temp Pulse Resp BP Pulse Ox 97.3 F 66 18 126/83 99 07/15/21 12:00 07/15/21 12:00 07/15/21 12:00 07/15/21 12:00 07/15/21 12:00 Assessment/ Plan: Nephrology Feeling better with improving dyspnea. Good urine output. No chest pain No acute events overnight Vitals, medications, blood work and imaging reviewed in the chart General: In no apparent distress, Oriented x3, Cooperative HEENT: Atraumatic Neck: Supple, JVD distended Respiratory: Clear to auscultation bilaterally Cardiovascular: Regular rate/rhythm, Edema Gastrointestinal: Soft and benign, Non-distended Musculoskeletal: No clubbing Integumentary: No rashes, No cyanosis Neurological: Normal speech Blood work reviewed in the chart. Imagings Data: EXAM DESCRIPTION: RAD - Chest Single View - 07/13/2021 5:23 am CLINICAL HISTORY: Follow up CHF COMPARISON: Chest Single View dated 07/12/2021; Chest Single View dated 07/11/2021; Chest Single View dated 07/08/2021; Chest Pa And Lat (2 Views) dated 11/20/2020 FINDINGS: Lines: None. Lungs: Unchanged widespread bilateral airspace opacities. Pleural: No significant pleural effusions or pneumothorax. Cardiac: Cardiomegaly. Bones: No acute fractures. Other: IMPRESSION: No significant change in widespread bilateral airspace disease that may reflect multifocal pneumonia and/or edema. LEFT VENTRICULAR WALL MOTION: GLOBAL MODERATE HYPOKINESIS LVEF 30-35% DOPPLER/COLOR FLOW: MILD MITRAL REGURGITATION COMMENTS: MODERATELY DEPRESSED LEFT VENTRICULAR EJECTION FRACTION 30-35% WITH MODERATE GLOBAL HYPOKINESIS. MILD MITRAL REGURGITATION. ELEVATED FILLING PRESSURE WITH RIGHT ATRIAL PRESSURE LESS THAN 20 mmHg. LEFT ATRIAL ENLARGEMENT. ATRIAL FIBRILLATION. Conclusions/Impression: CKD III -No NSAIDs Hypernatremia -Encourage water intake Hypokalemia -Replete potassium -Continue Spironolactone HTN with CKD/ CHF -Continue Metoprolol BID Systolic CHF, A/C -Low sodium diet -Continue Metoprolol BID -Lasix and Eplerenone at discharge DM II -RISS Moderate malnutrition -Consider protein supplementation Anemia in chronic illness -Monitor H&H Case reviewed with Dr. Marshall
[2021-07-16] MEDS ORDERED: AMILORIDE HCL 5 MG TABLET PO ONE (10:00)
--- NOTE | 2021-07-16 16:30 | PN ---
Date of Progress Note: 07/13/2021 Subjective: The patient was admitted and had an intervention by Dr. Garcia and has LAD and diagonal, still needs a PDA stent. Has congestive heart failure, ejection fraction of 26%. On 07/13/2021, hi s weight was 248. Blood pressure 128/93 with atrial fibrillation at a rate of 67. He is still on CP AP and BiPAP with an O2 saturation of 96%. Creatinine is normal. Hemoglobin is normal. BNP of 5094 . His present medical regimen includes amiodarone nebulized. He is on Eliquis, aspirin, Lipitor, fu rosemide, insulin, metoprolol, is on Brilinta, and metolazone and I do not think he should be on aspi rin. I think we should switch to Eliquis and Brilinta until Dr. Garcia does his PDA stent in the jimbo r future. Otherwise, we will continue to follow him. He should really be on an JEAN PIERRE inhibitor as wel l as what he is taking right now. KAT/ARI Voice ID: [id number] Report ID: [id number]
== END 2021-07-15 15:12 | disposition home or self-care (01) | DRG 246 ==
LOC: ER 20:14 → ERHOLD 23:05 → 3RD-ICU 07-09 14:35 → 2ND 07-14 20:40
PROVIDERS: ADMIT Hospitalist; ATTEND Family Medicine
PROC: 5A09557 Assistance with Respiratory Ventilation, Greater than 96 Consecutive Hours, Continuous Positive Airway Pressure (ICD-10-PCS; 2021-07-08)
PROC: 027135Z Dilation of Coronary Artery, Two Arteries with Two Drug-eluting Intraluminal Devices, Percutaneous Approach (ICD-10-PCS; principal; 2021-07-11)
PROC: 4A023N7 Measurement of Cardiac Sampling and Pressure, Left Heart, Percutaneous Approach (ICD-10-PCS; 2021-07-11)
PROC: B2111ZZ Fluoroscopy of Multiple Coronary Arteries using Low Osmolar Contrast (ICD-10-PCS; 2021-07-11)
DX: I13.0 Hypertensive heart and chronic kidney disease with heart failure and stage 1 through stage 4 chronic kidney disease, or unspecified chronic kidney disease (principal); J96.01 Acute respiratory failure with hypoxia; I21.4 Non-ST elevation (NSTEMI) myocardial infarction; J18.9 Pneumonia, unspecified organism; I50.23 Acute on chronic systolic (congestive) heart failure; Z68.42 Body mass index [BMI] 45.0-49.9, adult; E87.0 Hyperosmolality and hypernatremia; E44.0 Moderate protein-calorie malnutrition; E66.9 Obesity, unspecified; N18.32 Chronic kidney disease, stage 3b; E11.22 Type 2 diabetes mellitus with diabetic chronic kidney disease; I25.10 Atherosclerotic heart disease of native coronary artery without angina pectoris; I48.91 Unspecified atrial fibrillation; E78.5 Hyperlipidemia, unspecified; D63.8 Anemia in other chronic diseases classified elsewhere; M10.9 Gout, unspecified; G47.33 Obstructive sleep apnea (adult) (pediatric); E87.6 Hypokalemia; R77.8 Other specified abnormalities of plasma proteins; Z86.73 Personal history of transient ischemic attack (TIA), and cerebral infarction without residual deficits; Z88.1 Allergy status to other antibiotic agents; Z79.899 Other long term (current) drug therapy; Z79.01 Long term (current) use of anticoagulants; Z99.89 Dependence on other enabling machines and devices; Z68.35 Body mass index [BMI] 35.0-35.9, adult; Z79.84 Long term (current) use of oral hypoglycemic drugs; Z79.82 Long term (current) use of aspirin; Z20.822 Contact with and (suspected) exposure to COVID-19
CPT/HCPCS: 36415; 71045; 80048; 80053; 80061; 80076; 81003; 81015; 82570; 82805; 82947; 83036; 83605; 83735; 83880; 84100; 84132; 84145; 84156; 84439; 84443; 84484; 84550; 85025; 85347; 85379; 85610; 85730; 92928; 93005; 93306; 93458; 94660; 94760; 96365; 96366; 96375; 97116; 97161; 97530; 99291; 99292; C1725; C1893; J0282; J1644; J1940; J2250; J2543; J3010; J3480; J7030; J7060; U0003

== ENCOUNTER 2021-08-18 00:46 | Emergency (ER) | payer BC ==
--- OUTSIDE RECORDS SUMMARY | 2021-08-18 00:50 | XMS REPORT | Continuity of Care Document ---
:1955 Author Organization [facility] t Address [address] [place] [address] Care Team Providers Name Role Phone Norma [...] Date Clinician No Known DA Active U [facility] Allergie 12-02 [facility] 00:00: [address] No Known DA Active U [facility] Allergie 12-02 [facility] 00:00: [address] Medications This patient has no known medications. Procedures This patient has no known procedures. Encounters Start End Encounter Admission Attending Care Care Encounter Source Date/Time Date/Time Type Type Clinicians Facility Department ID 2020-12-02 2020-12-02 Outpatient JULIO CÉSAR Villanueva SURG [id number] -20 [facility] 15:30:00 15:30:00 Bruce [id number] [facility] Results Test Description Test Time Test Comments Results Result Comments Source GLUCOSE BEDSIDE TESTING 2020-12-03 11:36:00 Test Item Value Reference Range Interpretation Comme nts GLUCOSE BEDSIDE TESTING (test code = GLUBED) 229 MG/DL 60-99 H GLUCOSE BEDSIDE [id number] 07:48:00 Test Item Value Reference Range Interpretation Comments GLUCOSE BEDSIDE TESTING (test code 229 MG/DL 60-99 H = GLUBED) BASIC METABOLIC [id number] 04:52:00 Test Item Value Reference Range Interpretation [...] 8.5 MG/DL 8.4-10.2 N CA) CBC W/AUTO [id number] 04:39:00 Test Item Value Reference Range Interpretation [...] 0.00 K/mm3 0.0-0.1 N NRBC#) GLUCOSE BEDSIDE [id number] 19:58:00 Test Item Value Reference Range Interpretation Comments GLUCOSE BEDSIDE TESTING (test code 234 MG/DL 60-99 H = GLUBED) PROTHROMBIN [id number] 14:26:00 Test Item Value Reference Range Interpretation [...] syste marilyn embolism. 3.0 - 4.5 PTT [id number] 14:26:00 Test Item Value Reference Range Interpretation Comments PTT ACTIVATED (test code = APTT) 38.1 SECONDS 25.1-36.5 H BASIC METABOLIC [id number] 14:25:00 Test Item Value Reference Range Interpretation [...] code = 8.8 MG/DL 8.4-10.2 N CA) [id number] 14:25:00 Test Item Value Reference Range Interpretation Comments MAGNESIUM (test code = MAG) 2.1 MG/DL 1.6-2.3 N CBC W/AUTO [id number] 13:56:00 Test Item Value Reference Range Interpretation [...] 0.0-0.1 N NRBC#) COVID 19 Asymptomatic IH [id number] 13:08:00 Test Item Value Reference Range Interpretation [...] amount of virus (antigen) in the sample." [id number] 05:49:00 Test Item Value Reference Range Interpretation Comments PHOSPHORUS (BEAKER) (test code = 3.2 mg/dL 2.3-4.7 604) [id number] 05:49:00 Test Item Value Reference Range Interpretation Comments MAGNESIUM (BEAKER) (test code = 1.9 mg/dL 1.6-2.6 627) BASIC METABOLIC [id number] 05:25:00 Test Item Value Reference Range Interpretation [...] DIALYSIS PATIEN TS. MR, MRA, BRAIN, WITHOUT [id number] 19:36:00Reason for exam:->Ischemic Stroke EvaluationFINAL REPORT MRA brain and neck without contrast 04/26/2018 7:35 PM CLINICAL HISTORY: StrokeIschemic Stroke Evaluationconcern for stroke COMPARISON: None available TECHNIQUE: Two- and three-dimensional zzps-nw-peycao MRA images of the intra- and extracranial arterial vasculaturewas performed, from which maximal intensity projection 3-D reconstructions were created. FINDINGS: MRA neck: There is no vessel occlusion or flow-limiting stenosis. There is no NASCET-quantifiable cervical internal carotid artery stenosis. Flow is antegrade in both vertebral arteries. MRA [place]: There is no vessel occlusion, flow-limiting stenosis, or aneurysm. IMPRESSION: Negative intra-and extracranial MRAs. Signed: Kristian Hurtado Verified Date/Time: 04/26/2018 19:36:42 Reading Location: [facility] Radiology Reading Room MR, MRA, NECK, WITHOUT IV [id number] 19:36:00 Reason for exam:->Ischemic Stroke EvaluationFINAL REPORT MRA brain and neck without contrast 04/26/2018 7:35 PM CLINICAL H ISTORY: StrokeIschemic Stroke Evaluationconcern for stroke COMPARISON: None available TECHNIQUE: Two- and three-dimensional cqzd-hy-qmpbot MRA images of the intra- and extracranial arterial vasculaturewas performed, from which maximal intensity projection 3-D reconstructions were created. FINDINGS: MRA neck: There is no vessel occlusion or flow-limiting stenosis. There is no NASCET- quantifiable cervical internal carotid artery stenosis. Flow is antegrade in both vertebral arteries. MRA [place]: There is no vessel occlusion, flow-limiting stenosis, or aneurysm. IMPRESSION: Negative intra-and extracranial MRAs. Signed: Kristian Hurtado Verified Date/Time: 04/26/2018 19:36:42 Reading Location: [facility] Radiology Reading Room MR, BRAIN, WITHOUT [id number] 19:35:00Reason for exam:->Ischemic Stroke EvaluationFINAL REPORT MRI [...] MDReport Verified Date/Time: 04/26/2018 19:35:05 Reading Location: [facility] Radiology Reading Room HEMOGLOBIN [id number] 13:31:00 Test Item Value Reference Range Interpretation Comments HEMOGLOBIN A1C (BEAKER) (test code = 10.4 % 4.3-6.1 H 368) CREATINE KINASE (CK), TOTAL AND [id number] 08:03:00 Test Item Value Reference Range Interpretation Comments CREATINE KINASE TOTAL (BEAKER) 78 U/L 29-200 (test code = 380) CREATINE KINASE-MB (BEAKER) (test 4.0 ng/mL 0.0-6.6 code = 750) CREATINE KINASE-MB INDEX (BEAKER) 5.1 % (test code = 395) CK-MB Reference Range:<6.7 Normal6.7-10.0 Borderline>10.0 AbnormalTROPONIN [id number] 07:34:00 Test Item Value Reference Range Interpretation [...] acute neurological disease, and persistent tachyarrhythmia.BASIC METABOLIC [id number] 07:20:00 Test Item Value Reference Range Interpretation [...] PATIEN TS. CBC W/PLT COUNT & AUTO [id number] 06:38:00 Test Item Value Reference Range Interpretation [...] 0-1 PERCENT (BEAKER) (test code = 2801) [id number] 04:38:00 Test Item Value Reference Range Interpretation Comments RPR SCREEN (BEAKER) (test code = Nonreactive Nonreactive 420) TSH/FREE T4 IF [id number] 19:33:00 Test Item Value Reference Range Interpretation Comments THYROID STIMULATING HORMONE 0.98 uIU/mL 0.35-4.94 (BEAKER) (test code = 772) CREATINE KINASE (CK), TOTAL AND [id number] 18:51:00 Test Item Value Reference Range Interpretation Comments CREATINE KINASE TOTAL (BEAKER) 86 U/L 29-200 (test code = 380) CREATINE KINASE-MB (BEAKER) (test 4.7 ng/mL 0.0-6.6 code = 750) CREATINE KINASE-MB INDEX (BEAKER) 5.5 % (test code = 395) CK-MB Reference Range:<6.7 Normal6.7-10.0 Borderline>10.0 AbnormalTROPONIN [id number] 18:51:00 Test Item Value Reference Range Interpretation [...] acidosis, acute neurological disease, and persistent tachyarrhythmia.POCT-GLUCOSE [id number] 16:46:00 Test Item Value Reference Range Interpretation Comments POC-GLUCOSE METER 205 mg/dL 70-110 H TESTED AT [facility] 6720 (BEAKER) (test code = BRAEDEN Gamez YOST ME 1538) [address] VITAMIN [id number] 15:26:00 Test Item Value Reference Range Interpretation Comments VITAMIN B12 (BEAKER) (test code = 520 pg/mL 213-816 774) BASIC METABOLIC [id number] 14:57:00 Test Item Value Reference Range Interpretation [...] NOT APPLICABLE FOR DIALYSIS PATIEN TS. TROPONIN [id number] 11:41:00 Test Item Value Reference Range Interpretation [...] 395) CK-MB Reference Range:<6.7 Normal6.7-10.0 Borderline>10.0 AbnormalLIPID [id number] 11:34:00 Test Item Value Reference Range Interpretation [...] Borderline 130-159 High 160-189 Very High >=190PROTHROMBIN TIME/[id number] 11:28:00 Test Item Value Reference Range Interpretation Comments PROTIME (BEAKER) (test code = 14.2 seconds 11.7-14.7 759) INR (BEAKER) (test code = 370) 1.1 <=5.9 RECOMMENDED COUMADIN/WARFARIN INR THERAPY RANGESSTANDARD DOSE: 2.0 - 3.0 Includes: PROPHYLAXIS forvenous thrombosis, systemic embolization; TREATMENT for venous thrombosis and/or pulmonary embolus.HIGH RISK: Target INR is 2.5-3.5 for patients with mechanical heart valves.[id number] 11:28:00 Test Item Value Reference Range Interpretation [...] (test code = 413) CT, BRAIN, WITHOUT [id number] 09:27:00FINAL REPORT CT head without contrast INDICATION: [...] findings as discussed above. Signed: Barrington Quiñones MDR[facility] Verified Date/Time: 04/25/2018 09:27:15 Reading Location: [facility] C013 Neuro Reading Room Electronically signedby: BARRINGTON QUIÑONES M.D. on 04/25/2018 09:27 AM
[2021-08-18] MEDS ORDERED: LIDOCAINE 1% W/EPI 1:100,000 MDV 50 ML VIAL ONE (01:01)
--- NOTE | 2021-08-18 02:23 | EDPHYS ---
Physician Documentation [facility] Name: Vin Waller Jr Age: 66 yrs Sex: Male : 1955 Arrival Date: 08/18/2021 Time: 00:50 Bed 14 Private MD: ED Physician Jon Allison HPI: 08/18 02:09 This 66 yrs old Unknown Male presents to ER via Ambulatory with complaints of Mouth jmm Injury. 02:09 The patient presents with bleeding. The problem is located in the right buccal mucosa. jmm Onset: The symptoms/episode began/occurred acutely, at 21:00. Duration: The symptoms are continuous, and are steadily getting worse. Modifying factors: The symptoms are alleviated by nothing, the symptoms are aggravated by chewing. This is a 66 year old male with a history of CHF, CVA, DM, that presents to the ED with complaints of oral bleeding beginning after biting into a fruit and accidently chewing into his right buccal mucosa. Patient is taking blood thinners and unable to stop bleeding at home. . Historical: - Allergies: 00:58 Erythromycin; sm5 - Home Meds: 00:58 allopurinol 100 mg Oral tab 1 tab once daily [Active]; carvedilol Oral [Active]; sm5 furosemide 80 mg Oral tab 1 tab once daily [Active]; Klor-Con M20 20 mEq Oral TbTQ 1 tab once daily [Active]; lisinopril 20 mg Oral tab 1 tab once daily [Active]; Farxiga oral [Active]; Xarelto oral [Active]; - PMHx: 00:58 Atrial Fib; CHF; CVA; Diabetes - NIDDM; Gout; [place] - bilateral hearing aids - in place; sm5 Hypertension; - Immunization history:: Client reports having NOT received the Covid vaccine. - Social history:: Smoking status: unknown. - Immunization history: Last tetanus immunization: NA. ROS: 02:09 Constitutional: Negative for fever, chills, and weight loss, Cardiovascular: Negative jmm for chest pain, palpitations, and edema, Respiratory: Negative for shortness of breath, cough, wheezing, and pleuritic chest pain. 02:09 ENT: Positive for bleeding. 02:09 All other systems are negative. Exam: 02:09 Constitutional: This is a well developed, well nourished patient who is awake, alert, jmm and in no acute distress. Head/Face: atraumatic. Eyes: EOMI, no conjunctival erythema appreciated Neck: Trachea midline, Supple Chest/axilla: Normal chest wall appearance and motion. Cardiovascular: Regular rate and rhythm. No edema appreciated Respiratory: Normal respirations, no respiratory distress appreciated Abdomen/GI: Non distended, soft Back: Normal ROM Skin: General appearance color normal MS/ Extremity: Moves all extremities, no obvious deformities appreciated, no edema noted to the lower extremities Neuro: Awake and alert Psych: Behavior is normal, Mood is normal, Patient is cooperative and pleasant 02:09 ENT: small punctures noted to the right buccal mucosa with clots noted to the mouth. Vital Signs: 00:57 BP 149 / 86; Pulse 63; Resp 18; Pulse Ox 99% on R/A; Weight 106.59 kg; Height 5 ft. 10 sm5 in. (177.80 cm); Pain 0/10; 01:11 BP 143 / 97; Pulse 65; Resp 18; Temp 98.5; Pulse Ox 99% on R/A; Pain 0/10; [place] 02:09 BP 132 / 84; Pulse 63; Resp 16; Pulse Ox 98% on R/A; Pain 0/10; [place] 00:57 Body Mass Index 33.72 (106.59 kg, 177.80 cm) sm5 [place] Coma Score: 01:16 Eye Response: spontaneous(4). Verbal Response: oriented(5). Motor Response: obeys [place] commands(6). Total: 15. Trauma Score (Adult): 01:14 Eye Response: spontaneous(1); Verbal Response: oriented(1); Motor Response: obeys [place] commands(2); Systolic BP: > 89 mm Hg(4); Respiratory Rate: 10 to 29 per min(4); [place] Score: 15; Trauma Score: 12 Procedures: 02:16 2 ml of lidocaine with epi was injected in the right buccal mucosal at the site of jmm puncture. surgicele along with 4 x 4 gauze were then used to apply pressure. Hemostasis was achieved. . MDM: 00:55 Patient medically screened. [facility] 02:09 Data reviewed: vital signs, nurses notes. Counseling: I had a detailed discussion with [facility] the patient and/or guardian regarding: the historical points, exam findings, and any diagnostic results supporting the discharge/admit diagnosis, the need for outpatient follow up, to return to the emergency department if symptoms worsen or persist or if there are any questions or concerns that arise at home. Administered Medications: No medications were administered Disposition: 06:34 Co-signature as Attending Physician, Jon Allison MD. Co-signature as Attending rn Physician, Jon Allison MD. Disposition Summary: 08/18/21 02:22 Discharge Ordered Location: Home [facility] Condition: Stable jmm Diagnosis - Puncture to the Right Buccal Mucosa [facility] Followup: [facility] - With: Private Physician - When: 1 - 2 days - Reason: Recheck today's complaints, Continuance of care, Re-evaluation by your physician Forms: - Medication Reconciliation Form [facility] - Thank You Letter [facility] - Antibiotic Education [facility] - Prescription Opioid Use [facility] Signatures: López Gonzales PA PA jmm Nieto, Roman, MD MD rn Mazur, Sarah, RN RN 5 Veena Sheikh RN MANAN [place]
--- NOTE | 2021-08-18 02:23 | ER ---
Nurse's Notes [facility] Name: Vin Waller Jr Age: 66 yrs Sex: Male : 1955 Arrival Date: 08/18/2021 Time: 00:50 Bed 14 Private MD: Diagnosis: Puncture to the Right Buccal Mucosa Presentation: 08/18 00:57 Chief complaint: Patient states: around 9pm he ate a piece of fruit and bit the inside sm5 of his cheek and has been bleeding since. on blood thinners. Coronavirus screen: Vaccine status: Patient reports being unvaccinated. Ebola Screen: No symptoms or risks identified at this time. Initial Sepsis Screen: Does the patient meet any 2 criteria? No. Patient's initial sepsis screen is negative. Does the patient have a suspected source of infection? No. Patient's initial sepsis screen is negative. Risk Assessment: Do you want to hurt yourself or someone else? Patient reports no desire to harm self or others. Onset of symptoms was August 18, 2021. 00:57 Method Of Arrival: Ambulatory [facility] 00:57 Acuity: DORY 4 5 01:15 Care prior to arrival: None. Mechanism of Injury: pt bit the inside of his cheek. [place] Trauma event details: Injury occurred in the [facility], Injury occurred: at home. Triage Assessment: 01:00 General: Appears in no apparent distress. Behavior is cooperative. Pain: Denies pain. 5 Injury Description: Laceration sustained to mouth moderate bleeding noted at this time. Trauma Activation: Not Applicable Physician: ED Physician; Name: ; Notified At: ; Arrived At: Physician: General Surgeon; Name: ; Notified At: ; Arrived At: Physician: Radiology; Name: ; Notified At: ; Arrived At: Physician: Respiratory; Name: ; Notified At: ; Arrived At: Physician: Lab; Name: ; Notified At: ; Arrived At: Historical: - Allergies: 00:58 Erythromycin; sm5 - Home Meds: 00:58 allopurinol 100 mg Oral tab 1 tab once daily [Active]; carvedilol Oral [Active]; sm5 furosemide 80 mg Oral tab 1 tab once daily [Active]; Klor-Con M20 20 mEq Oral TbTQ 1 tab once daily [Active]; lisinopril 20 mg Oral tab 1 tab once daily [Active]; Farxiga oral [Active]; Xarelto oral [Active]; - PMHx: 00:58 Atrial Fib; CHF; CVA; Diabetes - NIDDM; Gout; [place] - bilateral hearing aids - in place; sm5 Hypertension; - Immunization history:: Client reports having NOT received the Covid vaccine. - Social history:: Smoking status: unknown. - Immunization history: Last tetanus immunization: NA. Screenin:11 Abuse screen: Denies threats or abuse. Denies injuries from another. Nutritional [place] screening: No deficits noted. Tuberculosis screening: No symptoms or risk factors identified. Fall Risk None identified. Primary Survey: 01:13 NO uncontrolled hemorrhage observed. A: The patient is alert. Airway: patent. [place] Breathing/Chest: Respiratory pattern: regular, Respiratory effort: spontaneous. Circulation: Cardiac rhythm: sinus rhythm. Disability Alert. Exposure/Environment: A warming method has been applied: A warm blanket has been provided to the patient. Reassessment Airway Airway Patent Breathing/Chest Respiratory pattern Regular Circulation Heart rhythm Sinus rhythm Disability Alert. Assessment: 01:09 Reassessment: No changes from previously documented assessment. Per the pt's and [place] the pt, the provider "just injected him" with a "numbing shot". The pt bit the inside of his mouth, while eating fruit and has been bleeding since. At present, he is resting in the bed with gauze tucked in his cheek, with his family at bedside. General: Appears in no apparent distress. comfortable. 02:02 General: The pt is resting comfortably with his at bedside. . [place] 02:12 General: The pt's bleeding has resolved and he is much more comfortable. He and his [place] acknowledged understanding of dc instructions, given by the provider. . Vital Signs: 00:57 BP 149 / 86; Pulse 63; Resp 18; Pulse Ox 99% on R/A; Weight 106.59 kg; Height 5 ft. 10 sm5 in. (177.80 cm); Pain 0/10; 01:11 BP 143 / 97; Pulse 65; Resp 18; Temp 98.5; Pulse Ox 99% on R/A; Pain 0/10; [place] 02:09 BP 132 / 84; Pulse 63; Resp 16; Pulse Ox 98% on R/A; Pain 0/10; [place] 00:57 Body Mass Index 33.72 (106.59 kg, 177.80 cm) [facility] [place] Coma Score: 01:16 Eye Response: spontaneous(4). Verbal Response: oriented(5). Motor Response: obeys [place] commands(6). Total: 15. Trauma Score (Adult): 01:14 Eye Response: spontaneous(1); Verbal Response: oriented(1); Motor Response: obeys [place] commands(2); Systolic BP: > 89 mm Hg(4); Respiratory Rate: 10 to 29 per min(4); [place] Score: 15; Trauma Score: 12 ED Course: 00:50 Patient arrived in ED. [facility] 00:54 López Gonzales PA is PHCP. [facility] 00:54 Jon Allison MD is Attending Physician. [facility] 00:58 Triage completed. 5 01:01 Arm band placed on right wrist. 5 01:08 Veena Sheikh, MANAN is Primary Nurse. [place] 01:11 Bed in low position. Call light in reach. Side rails up X 1. Adult w/ patient. [place] 01:11 No provider procedures requiring assistance completed. [place] 01:15 Thermoregulation: warm blanket given to patient. [place] 01:16 Patient maintains SpO2 saturation greater than 95% on room air. [place] 02:39 Patient did not have IV access during this emergency room visit. [place] Administered Medications: No medications were administered Intake: 01:16 PO: 0ml; Total: 0ml. [place] Output: 01:16 Urine: 0ml; Total: 0ml. [place] Outcome: 01:16 Condition: stable [place] 01:17 Patient's length of stay was not longer than 2 hours. [place] 02:14 Discharge instructions given to patient, family, Instructed on discharge instructions, [place] Demonstrated understanding of instructions, follow-up care. 02:22 Discharge ordered by . [facility] 02:39 Discharged to home ambulatory, with family. [place] 02:40 Patient left the ED. [place] Signatures: López Gonzales PA PA jmm Alexander, Jessica [facility] Leeann Perry RN RN [facility] Veena Sheikh RN RN bo
[2021-08-18 02:52] VITALS: TEMP 98.5
[2021-08-18 02:53] VITALS: BP 132/84; O2SAT 98
== END 2021-08-18 02:40 | disposition home or self-care (01) ==
LOC: ER 00:46
DX: S01.532A Puncture wound without foreign body of oral cavity, initial encounter (principal); I10 Essential (primary) hypertension; E11.9 Type 2 diabetes mellitus without complications; I48.91 Unspecified atrial fibrillation; Z79.01 Long term (current) use of anticoagulants; Z88.1 Allergy status to other antibiotic agents
CPT/HCPCS: 99284

== ENCOUNTER 2021-09-15 10:50 | Day surgery (SDC) | payer BC ==
[2021-09-13 13:43] LABS: Absolute Lymphocytes (CBC) 1.2 K/uL (0.7-4.9); Hematocrit 46.2 % (39.6-49.0); MPV 8.3 fL (7.6-11.3); RBC Red Blood Cell Count 5.22 M/uL (4.33-5.43)
[2021-09-13 13:45] LABS: Protime INR 1.46
[2021-09-13 13:53] LABS: Potassium 4.5 mmol/L (3.5-5.1)
--- NOTE | 2021-09-14 12:55 | EKG ---
Test Date: 2021-09-13 Test Time: 13:00:27 Finance Admin: KLEBER MEASUREMENT RESULTS: Intervals: Rate: 65 OR: QRSD: 144 QT: 502 QTc: 522 [place]: P: OR: QRS: 197 T: 61 INTERPRETIVE STATEMENTS: Atrial fibrillation Right superior axis deviation Nonspecific intraventricular block Cannot rule out Septal infarct, age undetermined Abnormal ECG Compared to ECG 07/10/2021 16:38:29 No significant changes Electronically Signed On 09-14-21 12:52:11 SITE LEAD by Geoff Roman
[~2021-09-15 10:50] MED LIST: HEPA 1000U/500MLS 2,000 UNIT/1,000 ML BAG IV ONE
[2021-09-15] MEDS ORDERED: NA CHLORIDE 0.9% 500 ML ONE (11:03)
[2021-09-15] MEDS ORDERED: HEPARIN 5000 UNIT/ML 1 ML VIAL ONE (11:37)
[2021-09-15] MEDS ORDERED: FENTANYL CITR 100 MCG/2 ML ONE ×2 (11:37→15:47)
[2021-09-15] MEDS ORDERED: CLOPIDOGREL 75 MG TABLET ONE (11:38)
[2021-09-15] MEDS ORDERED: VERAPAMIL HCL 10 MG/4 ML VIAL IV ONE (11:38)
[2021-09-15] MEDS ORDERED: HEPARIN 10,000 UNIT/10 ML VIAL IV ONE (11:38)
[2021-09-15] MEDS ORDERED: ASPIRIN 325 MG TAB ONE (11:38)
[2021-09-15] MEDS ORDERED: MIDAZOLAM HCL 2 MG/2 ML INJ ONE (11:38)
[2021-09-15] MEDS ORDERED: TICAGRELOR 90 MG TABLET PO ONE (11:39)
[2021-09-15] MEDS ORDERED: NITROGLYCERIN/D5W 0 MG/0 ML BTL IV ONE (11:39)
[2021-09-15] MEDS ORDERED: ATROPINE SULF 1 MG/10 ML SYR IV ONE (11:56)
[2021-09-15] MEDS ORDERED: LIDOCAINE 1% 20 ML MDV ONE (12:18)
[2021-09-15] MEDS ORDERED: HEPA 1000U/500MLS 1,000 UNIT/500 ML BAG IV ONE (13:31)
[2021-09-15 14:33] VITALS: TEMP 97
[2021-09-15] MEDS ORDERED: ACETAMINOPHEN 500 MG TAB PO PRN (17:56)
[2021-09-15] MEDS ORDERED: NA CHLORIDE 0.9% 1,000 ML IV SCH (18:00)
[2021-09-15] MEDS ORDERED: ONDANSETRON 4 MG/2 ML VIAL IV PRN (18:01)
[2021-09-15 19:35] VITALS: BP 152/76
[2021-09-15 19:36] VITALS: O2SAT 94
[2021-09-15] MEDS ORDERED: TICAGRELOR 90 MG TABLET PO SCH (21:00)
--- NOTE | 2021-09-16 00:33 | OP ---
Date of Procedure: 09/15/2021 Surgeon: GRISEL PALACIO Procedures Performed: 1.Selective coronary angiogram. 2.PCI of severe PDA stenosis using 2.75 x 28 mm Synergy drug-eluting stent. 3.Failed attempt PCI of mid LAD PILLING MACHINE OPERATOR. Access: Right radial artery 6-Dutch closed with TR band. Complications: None. Bleeding: Less than 50 mL. Description Of Procedure: After risks, benefits, and alternatives were explained, the patient agreed to the procedure and signed informed consent. The patient was brought into the cardiac catheterizat ion laboratory, prepped and draped in usual sterile fashion. We gave fentanyl and Versed in incremen radha doses to achieve adequate moderate sedation. Total sedation time was 75 minutes. Then, we used the pediatric micropuncture kit to access right radial artery and placed 6-Dutch slender sheath, and then took a 6-Dutch JR4 catheter into the aortic root, engaged the RCA and then took short run-thro ugh wire into the RCA all the way to the PDA crossing the area of stenosis. The lesion was prepped u sing a 2.5 x 12 mm balloon and then used a 2.75 x 28 mm Synergy drug-eluting stent to cover the 2 are as of severe stenosis with good results. Then, we removed the wire and final angiogram was satisfact ory. Then exchanged for a 6-Dutch JL 3.5 guide and engaged the left main, took standard views and t hen tried to wire the mid LAD PILLING MACHINE OPERATOR using a run-through wire, could not cross it. Tried to use a could not cross it. The patient was given heparin throughout the procedure to assure ACT level above 250. I then decided to abort the procedure as the equipments for CT were not available in [facility] and decided to stop the procedure and re-attempt the LAD PILLING MACHINE OPERATOR at higher level of care facil ity. Then, we removed the guide and the sheath, placed TR band with good hemostasis. Findings: 1.Left main is normal. 2.LAD; proximal LAD stent is patent, then the diagonal branch stent is patent. The mid LAD is PILLING MACHINE OPERATOR f illing distally from collaterals from the left circumflex. 3.Left circumflex is patent and then the OM at the proximal portion does have 50% stenosis. 4.RCA; large dominant with proximal mid 30% to 40% and then PDA has 2 areas of 99%, status post succ essful PCI as above. Conclusion: 1.Severe right PDA stenosis, status post successful PCI. 2.Mid LAD PILLING MACHINE OPERATOR, status post failed attempt of PCI. Plan: Continue Brilinta and high-dose statin and aspirin and follow up with me in the office in 1 we ek. We will plan to schedule him for re-attempt of mid LAD PILLING MACHINE OPERATOR at a higher level of care facility at [place]. /ARI Voice ID: [id number] Report ID: [id number]
[2021-09-16] MEDS ORDERED: ASPIRIN EC 81 MG TAB PO SCH (09:00)
== END 2021-09-15 17:30 | disposition home or self-care (01) ==
LOC: CCL 10:50
PROVIDERS: ATTEND Internal Medicine
DX: I25.10 Atherosclerotic heart disease of native coronary artery without angina pectoris (principal); I25.82 Chronic total occlusion of coronary artery; I11.0 Hypertensive heart disease with heart failure; I50.9 Heart failure, unspecified; I48.91 Unspecified atrial fibrillation; Z95.5 Presence of coronary angioplasty implant and graft; Z20.822 Contact with and (suspected) exposure to COVID-19
CPT/HCPCS: 93005; 85025; 80048; 36415; 85610; 82947; 85730; 92928; 93454; U0003; C1893; C1725; J1644 ×3; J2250; J3010 ×2; J7040

== ENCOUNTER 2024-09-05 03:21 | Emergency (ER) | payer BC ==
[2024-09-05] MEDS ORDERED: IBUPROFEN 400 MG TAB ONE (04:09)
[2024-09-05] MEDS ORDERED: CEFTRIAXONE 1000 MG/VIAL ONE (04:09)
[2024-09-05] MEDS ORDERED: TETRACAINE HCL 0.5% 4ML OPTH ONE (04:10)
[2024-09-05] MEDS ORDERED: GUAIFENESIN/DM 5 ML UCUP ONE (04:10)
[2024-09-05] MEDS ORDERED: NA CHLORIDE 0.9% 50 ML ONE (04:10)
[2024-09-05 04:18] LABS: Absolute Basophils 0.1 K/uL (0-0.5); Absolute Eosinophils 0.3 K/uL (0-0.5); Absolute Neutrophil 7.9 K/uL (1.8-8.0); Basophils % 0.8 % (0-1.3); Eosinophils % 2.7 % (0-4.4); Hematocrit 45.1 % (39.6-49.0); Lymphocytes % 9.7 % (15.3-44.8); MCH 29.5 pg (27.0-35.0); MCHC 33.2 g/dL (32.0-36.0); MCV 88.9 fL (80-100); MPV 8.9 fL (7.6-11.3); Monocytes % 9.5 % (3.3-12.3); Neutrophils % 77.3 % (41.7-73.7); Platelets 183 thou/uL (152-406); RBC Red Blood Cell Count 5.07 M/uL (4.33-5.43); Red Cell Distribution Width 15.7 % (12.1-15.2)
[2024-09-05 04:38] LABS: Albumin 2.6 g/dL (3.4-5.0); Albumin/Globulin Ratio 0.6 (1.1-1.8); Anion Gap 9.9 mEq/L (5.0-15.0); Bilirubin Direct 0.6 mg/dL (0-0.2); Bilirubin Indirect, Calculated 0.4 mg/dL (0.2-0.8); Globulin 4.3 g/dL (2.3-3.5); Potassium 3.9 mEq/L (3.5-5.1); Protein, Total 6.9 g/dL (6.4-8.2)
[2024-09-05 04:40] LABS: Influenza A Ag Negative; Influenza B Ag Negative; SARS-CoV-2 Antigen Rapid Res Negative (Negative)
--- NOTE | 2024-09-05 05:44 | EDPHYS ---
Physician Documentation [facility] Name: Vin Waller Jr Age: 69 yrs Sex: Male : 1955 Arrival Date: 09/05/2024 Time: 03:21 Bed 25 Private MD: ED Physician Gilmer Cerna HPI: 09/05 03:46 This 69 yrs old Unknown Male presents to ER via Ambulatory with complaints of Cough, sp4 Chest Congestion, Eye Pain, Drainage From Eye. 05:48 69-year-old male presents with worsening cough, congestion, bilateral eye drainage, and sp4 sore throat.. Historical: - Allergies: 03:36 Erythromycin; lg3 - PMHx: 03:36 Atrial Fib; CHF; CVA; Diabetes - NIDDM; Gout; [place] - bilateral hearing aids - in place; lg3 Hypertension; - PSHx: 03:36 Appendectomy; cardiac stent X3; watchman; lg3 - Immunization history:: Adult Immunizations up to date. - Infectious Disease History:: Denies. - Social history:: Smoking status: Patient denies any tobacco usage or history of. Patient/guardian denies using alcohol, street drugs. - Family history:: not pertinent. ROS: 05:48 Constitutional: Negative for fever, chills, and weight loss, positive cough, positive sp4 congestion, positive bilateral eye drainage, positive shortness of breath, 05:48 All other systems are negative, Exam: 05:48 Constitutional: This is a well developed, well nourished patient who is awake, alert, sp4 and in no acute distress. Head/Face: Normocephalic, atraumatic. Eyes: Pupils equal round and reactive to light, extra-ocular motions intact. Lids and lashes normal. Conjunctiva and sclera are not injected. Cornea within normal limits. Periorbital areas with no swelling, redness, or edema. Positive bilateral eye purulent discharge from the tear ducts ENT: Nares patent. No nasal discharge, no septal abnormalities noted. Tympanic membranes are normal and external auditory canals are clear. Oropharynx with bilateral pharyngeal redness and exudate Neck: Trachea midline, no thyromegaly or masses palpated, and no cervical lymphadenopathy. Supple, full range of motion without nuchal rigidity, or vertebral point tenderness. Chest/axilla: Normal chest wall appearance and motion. Nontender with no deformity. No lesions are appreciated. Cardiovascular: Regular rate and rhythm with a normal S1 and S2. No gallops, murmurs, or rubs. Normal PMI, no JVD. No pulse deficits. Respiratory: Lungs have equal breath sounds bilaterally, clear to auscultation and percussion. No rales, rhonchi or wheezes noted. No increased work of breathing, no retractions or nasal flaring. Abdomen/GI: Soft, with normal bowel sounds. No distension or tympany. No guarding or rebound. No evidence of tenderness throughout. Back: No spinal tenderness. No costovertebral tenderness. Skin: Warm, dry with normal turgor. Normal color with no rashes, no lesions, and no evidence of cellulitis. MS/ Extremity: Pulses equal, no cyanosis. Neurovascular intact. Full, normal range of motion. Neuro: Awake and alert, GCS 15, oriented to person, place, time, and situation. Cranial nerves II-XII grossly intact. Motor strength 5/5 in all extremities. Sensory grossly intact. Psych: Awake, alert, with orientation to person, place and time. Behavior, mood, and affect are within normal limits Vital Signs: 03:34 BP 137 / 85; Pulse 68; Resp 16 S; Temp 97.9(O); Pulse Ox 100% on R/A; Weight 102.06 kg lg3 (R); Height 5 ft. 10 in. (R); 04:30 BP 153 / 92; Pulse 78; Resp 18; Pulse Ox 96% ; jj7 05:30 BP 145 / 104; Pulse 113; Resp 16; Pulse Ox 94% ; jj7 06:25 BP 112 / 74; Pulse 74; Resp 19; Temp 97.6; Pulse Ox 95% ; Pain 0/10; jj7 03:34 Body Mass Index 32.28 (102.06 kg, 177.8 cm) lg3 06:25 Pain Scale: Adult jj7 [place] Coma Score: 05:48 Eye Response: spontaneous(4). Motor Response: obeys commands(6). Verbal Response: sp4 oriented(5). Total: 15. MDM: 05:35 ED course: EXAM DESCRIPTION: Chest Pa And Lat (2 Views) RadLex: XR CHEST 2 VIEWS sp4 CLINICAL HISTORY: 69 years Male, CHEST PAIN COMPARISON: None. FINDINGS: PA and lateral upright views of the chest. Trachea is midline. Cardiac silhouette is mildly enlarged. Retrocardiac opacities suspicious for left lower lobe pneumonia. There may be a small left pleural effusion. No pneumothorax. No acute osseous abnormality. IMPRESSION: Retrocardiac opacities suspicious for left lower lobe pneumonia. Recommend continued radiographic follow-up to confirm resolution and to exclude underlying mass. . 05:44 Medical Screening Exam initiated sp4 05:50 Differential Diagnosis: Bronchitis Influenza Upper Respiratory Infection Sinusitis sp4 Pharyngitis Otitis Media Allergic Rhinitis Asthma Exacerbation. Data reviewed: vital signs, nurses notes, lab test result(s), radiologic studies, plain films. Consideration of Admission/Observation Escalation of care including admission/observation considered. ED course: Stable for discharge home with 10-day course of cefdinir.. 09/05 03:47 Order name: COVID-19 Ag + Flu A+B Ag; Complete Time: 05:05 sp4 09/05 03:47 Order name: Basic Metabolic Panel; Complete Time: 05:05 sp4 09/05 03:47 Order name: CBC with Diff; Complete Time: 05:05 sp4 09/05 03:47 Order name: LFT's; Complete Time: 05:05 sp4 09/05 03:46 Order name: Chest Pa And Lat (2 Views) XRAY sp4 09/05 03:47 Order name: Cardiac monitoring; Complete Time: 04:17 sp4 09/05 03:47 Order name: IV Saline Lock; Complete Time: 04:17 sp4 09/05 03:47 Order name: Labs collected and sent; Complete Time: 04:17 4 Administered Medications: 04:28 Drug: Rocephin - Rocephin (cefTRIAXone) IVPB 1 grams IVPB once over 30 mins; (mix in 50 jj7 mL NS) Route: IVPB; Infused Over: 30 mins; Site: left antecubital; 05:00 Follow up: IV Status: Completed infusion j7 04:28 Drug: Dextromethorphan-Guaifenesin PO Liquid 10 mg-100 mg/5 mL 20 ml PO once Route: PO; jj7 06:26 Follow up: Response: Marked relief of symptoms j 04:28 Drug: Ibuprofen PO 800 mg PO once Route: PO; j7 06:26 Follow up: Response: Marked relief of symptoms j7 04:28 Drug: Tetracaine Ophthalmic Drops 0.5 % 1 drops Ophthalmic once; to both eyes 3 drops jj7 each eye Route: Ophthalmic; Site: both eyes; Disposition Summary: 09/05/24 05:44 Discharge Ordered Notes: Location: Home sp4 Problem: new sp4 Symptoms: have improved sp4 Condition: Stable sp4 Diagnosis - Pneumonia, unspecified organism sp4 - Left lower lung pneumonia, persistent cough, bilateral dacryocystitis, acute sp4 pharyngitis, purulent rhinitis Followup: sp4 - With: Private Physician - When: 7 - 10 days - Reason: Recheck today's complaints Discharge Instructions: - Discharge Summary Sheet sp4 - Community-Acquired Pneumonia, Adult sp4 Forms: - Patient Portal Instructions sp4 Prescriptions: - cefdinir 300 mg Oral capsule - take 1 capsule ORAL route every 12 hours; 20 capsule; Refills: 0, Product sp4 Selection Permitted - dextromethorphan-guaifenesin 20-400 mg Oral tablet - take 1 tablet ORAL route every 6 hours PRN cough; 60 tablet; Refills: 0, sp4 Product Selection Permitted - tobramycin 0.3 % Ophthalmic drops - instill 2 drop OPHTHALMIC route every 4 hours for 5 days; 5 milliliter; sp4 Refills: 0, Product Selection Permitted - ondansetron 8 mg Oral Tablet,disintegrating - take 1 tablet ORAL route every 8 hours PRN nausea; 30 tablet; Refills: 0, sp4 Product Selection Permitted Signatures: Dispatcher [employer] Mya Pereyra RN RN lg3 Matty Venegas RN RN jj7 Gilmer Cerna MD MD sp4
--- NOTE | 2024-09-05 05:44 | ER ---
Nurse's Notes [facility] Name: Vin Waller Jr Age: 69 yrs Sex: Male : 1955 Arrival Date: 09/05/2024 Time: 03:21 Bed 25 Private MD: Diagnosis: Pneumonia, unspecified organism;Left lower lung pneumonia, persistent cough, bilateral dacryocystitis, acute pharyngitis, purulent rhinitis Presentation: 09/05 03:34 Chief complaint: Patient states: cough and congestion X8 days. eye redness, swelling lg3 and drainage X2 days. Coronavirus screen: Client denies travel out of the [place] in the last 14 days. At this time, the client does not indicate any symptoms associated with coronavirus-19. Ebola Screen: No symptoms or risks identified at this time. The patient denies any loss of vision. Initial Sepsis Screen: Does the patient meet any 2 criteria? No. Patient's initial sepsis screen is negative. Does the patient have a suspected source of infection? No. Patient's initial sepsis screen is negative. Risk Assessment: Do you want to hurt yourself or someone else? Patient reports no desire to harm self or others. Onset of symptoms was August 27, 2024. 03:34 Method Of Arrival: Ambulatory lg3 03:34 Acuity: DORY 4 lg3 Triage Assessment: 03:36 General: Appears in no apparent distress. comfortable, Behavior is calm, cooperative. lg3 Pain: Denies pain. EENT: Eyes with exudate noted from right eye and left eye. Neuro: No deficits noted. [place] Agitation-Sedation Scale (RASS): 0 - Alert and Calm Level of Consciousness is awake, alert, obeys commands, Oriented to person, place, time, situation. Cardiovascular: No deficits noted. Denies chest pain, shortness of breath, Capillary refill < 3 seconds Clubbing of nail beds is absent JVD is absent Patient's skin is warm and dry. Respiratory: No deficits noted. Reports cough that is Airway is patent Respiratory effort is even, unlabored, Respiratory pattern is regular, symmetrical. GI: No deficits noted. No signs and/or symptoms were reported involving the gastrointestinal system. : No signs and/or symptoms were reported regarding the genitourinary system. Derm: Skin is intact, is healthy with good turgor, Skin is dry, Skin is normal, Skin temperature is warm. Musculoskeletal: Circulation, motion, and sensation intact. Range of motion: intact in all extremities, Swelling present in right eye and left eye. Historical: - Allergies: 03:36 Erythromycin; lg3 - PMHx: 03:36 Atrial Fib; CHF; CVA; Diabetes - NIDDM; Gout; [place] - bilateral hearing aids - in place; lg3 Hypertension; - PSHx: 03:36 Appendectomy; cardiac stent X3; watchman; lg3 - Immunization history:: Adult Immunizations up to date. - Infectious Disease History:: Denies. - Social history:: Smoking status: Patient denies any tobacco usage or history of. Patient/guardian denies using alcohol, street drugs. - Family history:: not pertinent. Screenin:36 [facility] ED Fall Risk Assessment (Adult) History of falling in the last 3 months, jj7 including since admission No falls in past 3 months (0 pts) Confusion or Disorientation No (0 pts) Intoxicated or Sedated No (0 pts) Impaired Gait No (0 pts) Mobility Assist Device Used No (0 pt) Altered Elimination No (0 pt) Score/Fall Risk Level 0 - 2 = Low Risk Oriented to surroundings, Maintained a safe environment, Educated pt \T\ family on fall prevention, incl call for assistance when getting out of bed, Assessed \T\ reinforced patient's understanding of fall precautions. Abuse screen: Denies threats or abuse. Nutritional screening: No deficits noted. Tuberculosis screening: No symptoms or risk factors identified. Assessment: 03:36 General: Appears in no apparent distress. uncomfortable, Behavior is calm, cooperative, jj7 appropriate for age. Respiratory: Reports cough that is productive. EENT: RED [place]CTIVA . Vital Signs: 03:34 BP 137 / 85; Pulse 68; Resp 16 S; Temp 97.9(O); Pulse Ox 100% on R/A; Weight 102.06 kg lg3 (R); Height 5 ft. 10 in. (R); 04:30 BP 153 / 92; Pulse 78; Resp 18; Pulse Ox 96% ; jj7 05:30 BP 145 / 104; Pulse 113; Resp 16; Pulse Ox 94% ; jj7 06:25 BP 112 / 74; Pulse 74; Resp 19; Temp 97.6; Pulse Ox 95% ; Pain 0/10; jj7 03:34 Body Mass Index 32.28 (102.06 kg, 177.8 cm) lg3 06:25 Pain Scale: Adult jj7 [place] Coma Score: 05:48 Eye Response: spontaneous(4). Motor Response: obeys commands(6). Verbal Response: sp4 oriented(5). Total: 15. ED Course: 03:25 Patient arrived in ED. jj6 03:36 Triage completed. lg3 03:36 Arm band placed on right wrist. lg3 03:36 Patient has correct armband on for positive identification. Provided Education on: USE jj7 OF CALL YBARRA. 03:36 No provider procedures requiring assistance completed. jj7 03:44 Matty Venegas, MANAN is Primary Nurse. jj7 03:46 Gilmer Cerna MD is Attending Physician. sp4 03:55 Missed attempt(s): 20 gauge in left antecubital area. Bleeding controlled, band aid jj7 applied, catheter tip intact. 04:00 Inserted saline lock: 20 gauge in left antecubital area, using aseptic technique. Blood jj7 collected. Flushed with 10 mL NS. 04:17 Chest Pa And Lat (2 Views) XRAY In Process Unspecified. EDMS 04:18 Basic Metabolic Panel Sent. jj7 04:18 CBC with Diff Sent. jj7 04:18 LFT's Sent. jj7 04:18 COVID-19 Ag + Flu A+B Ag Sent. jj7 04:51 Warm blanket given. jj7 06:30 IV discontinued, intact, bleeding controlled, No redness/swelling at site. Pressure jj7 dressing applied. Administered Medications: 04:28 Drug: Rocephin - Rocephin (cefTRIAXone) IVPB 1 grams IVPB once over 30 mins; (mix in 50 jj7 mL NS) Route: IVPB; Infused Over: 30 mins; Site: left antecubital; 05:00 Follow up: IV Status: Completed infusion jj7 04:28 Drug: Dextromethorphan-Guaifenesin PO Liquid 10 mg-100 mg/5 mL 20 ml PO once Route: PO; jj7 06:26 Follow up: Response: Marked relief of symptoms jj7 04:28 Drug: Ibuprofen PO 800 mg PO once Route: PO; jj7 06:26 Follow up: Response: Marked relief of symptoms jj7 04:28 Drug: Tetracaine Ophthalmic Drops 0.5 % 1 drops Ophthalmic once; to both eyes 3 drops jj7 each eye Route: Ophthalmic; Site: both eyes; Medication: 03:36 VIS not applicable for this client. jj7 Outcome: 05:44 Discharge ordered by MD. pan 06:30 Discharged to home ambulatory, with family, jj7 06:30 Condition: improved 06:30 Discharge instructions given to patient, family, Instructed on discharge instructions, follow up and referral plans. medication usage, Demonstrated understanding of instructions, follow-up care, medications, Prescriptions given X 4, 06:31 Patient left the ED. jj7 Signatures: Dispatcher [employer] EDMS Mya August RN RN lg3 Sophie Lehman jj6 Matty Venegas RN RN jj7 Gilmer Cerna MD MD sp4
--- NOTE | 2024-09-05 06:08 | RAD REPORT ---
EXAM DESCRIPTION: Chest Pa And Lat (2 Views) RadLex: XR CHEST 2 VIEWS CLINICAL HISTORY: 69 years Male, CHEST PAIN COMPARISON: None. FINDINGS: PA and lateral upright views of the chest. Trachea is midline. Cardiac silhouette is mildly enlarged. Retrocardiac opacities suspicious for left lower lobe pneumonia. There may be a small left pleural effusion. No pneumothorax. No acute osseous abnormality. IMPRESSION: Retrocardiac opacities suspicious for left lower lobe pneumonia. Recommend continued radiographic fol low-up to confirm resolution and to exclude underlying mass. Electronically signed by: Kenna Oviedo MD 09/05/2024 05:25 AM [facility] Due to temporary technical issues with the PACS/[employer] reporting system, reports are being nohemi d by the in-house radiologist without review as a courtesy to ensure prompt reporting the interpreting radiologist is fully responsible for the content of the report. Transcribed Date/Time: 09/05/2024 6:08 AM
[2024-09-05 06:40] VITALS: BP 112/74; TEMP 97.6; O2SAT 95
== END 2024-09-05 06:31 | disposition home or self-care (01) ==
LOC: ER 03:21
DX: J18.9 Pneumonia, unspecified organism (principal); J31.0 Chronic rhinitis; H04.303 Unspecified dacryocystitis of bilateral lacrimal passages; J02.9 Acute pharyngitis, unspecified; Z11.52 Encounter for screening for COVID-19; Z95.818 Presence of other cardiac implants and grafts
CPT/HCPCS: 96365; 85025; 80048; 36415; 80076; 71046; 99284; 87428; J0696